=== PATIENT | male | born 1930 | race Caucasian/White ===

== ENCOUNTER 2016-05-20 00:01 | Outpatient (RCR) ==
[2016-05-11 12:37] VITALS: BMI 21.4
[2016-06-08 09:22] VITALS: BP 90/40
== END 2016-06-19 ==
LOC: CAR.REHAB 00:01
PROVIDERS: ATTEND Internal Medicine
DX: I50.9 Heart failure, unspecified (principal); Z95.2 Presence of prosthetic heart valve
CPT/HCPCS: 93798

== ENCOUNTER 2016-05-23 17:00 | Outpatient (CLI) ==
[2016-05-11 12:37] VITALS: BMI 21.4
[2016-05-23 17:38] LABS: BASOPHILS # (AUTO) 0.1 K/uL (0-0.2); BASOPHILS % (AUTO) 0.5 % (0.0-3.0); EOSINOPHILS # (AUTO) 0.1 K/ul (0.0-0.7); EOSINOPHILS % (AUTO) 0.8 % (0.0-7.0); HEMATOCRIT 39.3 % (42.0-52.0); HEMOGLOBIN 12.6 g/dl (14.0-18.0); IMMATURE GRANULOCYTE % (AUTO) 1.6 % (0.0-5.0); LYMPHOCYTES % (AUTO) 9.6 (10.0-50.0); MEAN CORPUSCULAR HEMOGLOBIN 30.9 pg (27.0-31.0); MEAN CORPUSCULAR HGB CONC 32.1 (31.8-35.4); MEAN CORPUSCULAR VOLUME 96.3 fl (80.0-94.0); MONOCYTES # (AUTO) 0.8 K/uL (0.4-2.0); MONOCYTES % (AUTO) 7.3 (0-10); NEUTROPHILS # (AUTO) 8.2 K/ul (2.0-6.9); NEUTROPHILS % (AUTO) 80.2; PLATELET COUNT 191 10^3/uL (140-440); RED BLOOD COUNT 4.08 10^6/ul (4.70-6.10); WHITE BLOOD COUNT 10.27 K/ul (4.2-10.2)
[2016-05-23 18:12] LABS: ALBUMIN 3.3 g/dL (3.4-5.0); ALBUMIN/GLOBULIN RATIO 0.87; ANION GAP 15.5; BILIRUBIN,TOTAL 1.35 mg/dL (0.00-1.20); BUN/CREATININE RATIO 39.34; CALCIUM 9.4 mg/dL (8.2-10.2); CHOL/HDL RATIO 8.7 (4.5-6.4); CREATININE 1.22 mg/dL (0.60-1.10); POTASSIUM 4.5 mmol/L (3.5-5.1); TOTAL PROTEIN 7.1 g/dL (5.8-8.1)
== END 2016-05-23 17:01 | disposition home or self-care (01) ==
LOC: LAB 17:00
PROVIDERS: ATTEND Internal Medicine
DX: I50.9 Heart failure, unspecified (principal); E78.5 Hyperlipidemia, unspecified; I10 Essential (primary) hypertension; I34.0 Nonrheumatic mitral (valve) insufficiency
CPT/HCPCS: 36415; 80053; 80061; 83880; 84443; 85025

== ENCOUNTER 2016-06-04 11:00 | Outpatient (RCR) ==
[2016-05-11 12:37] VITALS: BMI 21.4
--- NOTE | 2016-05-31 09:56 | RS.OPPTEV2 ---
Date of Note: 05/31/16 Visit #: 1 Date of Evaluation: 05/31/16 Payer Source: MEDICARE Date of Onset/Injury/Change in Status: 05/20/16 Surgery Performed?: No Treatment Diagnosis: Cervicalgia History of Condition/Mechanism of Injury:: Patient had a bad virus in April and afterwards he started having severe neck pain and has been in a near constant spasm. He has become very debilitated and had other medical complications that caused him to delay starting PT. He is have difficulty with all aspects of mobility and can not get comfortable enough to sleep well. He is not able to drive and his states that getting in/out of bed and even dressing are too difficult for him due to the constant pain in his neck at such a severe level. 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 Prior Level of Function.....Patient was independent with: ADL's, Self Care, Caregiving, Ambulation/Mobility, Community Integration/Access Functional Limitations: Sleep, Self Care, ADL's, Reaching, Pushing, Pulling, Lifting, Carrying, Sitting, Standing, Bending, Squatting, Ambulation, Community Access/Integration Treatment Side (optional): N/A Medical History Medical History: Hypertension, Arthritis Surgical History: CABG Surgical History Comments:: Valve replacement, Left ulnar nerve relocation years ago, injury to left elbow during childhood. Smoking Status: Former smoker Hx Home Medications: Lipitor, [place] PRN, Norvasc & Coumadin Pain Assessment - Pain Description Pain Location: Neck pain more distal neck Pain Description: Tightness, Acute Pain Description: Debilitating constant neck pain like a constant spasm. Current Pain Intensity: 7/10 Worst Pain Intensity: 10/10 Functional Outcome Measure Neck Disability Index: 35 (70% disability) - G Codes & Severity Modifier G Codes & Modifier: Current: Changing & Maintaining Body Position - CL. Goal: CK Source of G Code score: NDI Observation - Observation Posture: Forward Head, Rounded Shoulders, Decreased Cervical Lordosis Gait - Gait Pattern General Gait Pattern Observation: Antalgic Gait, Uneven Elena (Patient has unsteady gt but it is unknown how much is related to pain and what was previously present.) General Muscle Strength: BUEs were WFLs to AROM. Decreased ROM minimally of left shoulder due to TSR several years ago. - ROM Cervical Flexion: 10 (degrees) Cervical Extension: 10 (degrees) Cervical Right Rotation: 25 (degrees) Cervical Left Rotation: 25 (degrees) Cervical Spine Range of Motion Limitations: Pain - Strength Comments: Not tested due to pain Palpation Palpation Findings: Tenderness, Spasm, Muscle Guarding (Bilateral mid-distal cervcail paraspinals) Sensation - Sensation Sensation Description: Within Normal Limits Balance - Standing Balance Static Standing Balance: Good Dynamic Standing Balance: Fair (Again it is unknown if this balance deficit is pain related or previously present.) - Treatment Modality: Ultrasound Parameters/Method Applied: 1 MHz at 0.4 w/cm2 X 10 mins Treatment Area: Bilateral cervical paraspinals Patient Position: Sitting Interventions - Exercise/Activities/Manual Therapy Exercises/Activities: Pt performed CROM within pain free ROM in all planes. He is very limited and required VCs to avoid increasing pain. Chin tuck X 7 reps with VCs for proper technique. Total minutes of Exercise: 10 Manual Therapy: NA HOME EXERCISE PROGRAM: Patient and his were instructed to perform 5-7 reps each of CROM in all planes every waking hour within pain free ROM. They verbalized understanding but further education will be needed. - Charges Total Direct Minutes: 75 Total Treatment Time: 20 Procedures billed for this date of service:: PT Marquis (Mod), US & ther ex Assessment Assessment: Constant neck pain that has been debilitating in nature. He has poor CROM and neck and upper body weakness as well as significant postural deficits in the C-spine. Patient Education: Education of diagnosis, Body/Joint mechanics, Home Exercise Program, Activity Modification, Education of Plan of Care Rehab Potential: Good Short Term Goals Goal #1: Pain is intermittent in the neck. Goal to be met by: 06/22/16 Goal #2: Patient is able to perform transfers w/o increased neck pain Goal to be met by: 06/22/16 Goal #3: CROM is 50% in all planes. Goal to be met by: 06/22/16 Goal #4: Independent with initial HEP Goal to be met by: 06/22/16 [facility] Goals Goal #1: CROM WFLs to allow him to drive. Goal to be met by: 07/13/16 Goal #2: NDI score 20/50 Goal to be met by: 07/13/16 Progress towards goal: Met Goal #3: Patient independent in HEP. Goal to be met by: 07/01/13 Goal #4: Patient is able to sleep w/o pain awakening him. Goal to be met by: 07/13/16 Plan - Treatment to be Provided Procedures: Therapeutic Exercises, Therapeutic Activity, Neuromuscular Rehab, Manual Therapy, Massage, Patient Education Modalities: Electrical Stimulation, Ultrasound/Phonophoresis, Class IV Laser, Cryotherapy, Hot Packs - Treatment Plan Frequency: 3 X week Duration: 6 weeks ORDER # VISITS AND/OR THROUGH DATE: 07/13/2016 - Treatment Code (1) Cervicalgia Comments: M54.2
--- NOTE | 2016-06-01 16:17 | RS.OPPTDN ---
Subjective Date of Note: 06/01/16 Visit #: 2 Date of Evaluation: 05/31/16 Payer Source: MEDICARE Treatment Diagnosis: Cervicalgia Current Subjective/complaints:: Patient reports first treatment of US helped reduce pain. He and his both report an increase in cervical motion with treatment today. *Precautions: avoiding shoulder extension past neutral. Pain Assessment - Pain Description Pain Location: Neck pain more distal neck Pain Description: Tightness, Acute Pain Description: Debilitating constant neck pain like a constant spasm. Current Pain Intensity: 7/10 - Treatment Modality: Ultrasound Parameters/Method Applied: [id number] at 1.5w/cm2 to the bialteral cervical paraspinals and traps prior to MT. Patient in sitting. Patient Position: Sitting - Heat/Cryotherapy Treatment: Hot Pack ([id number] to the cervical spine ) Interventions - Exercise/Activities/Manual Therapy Exercises/Activities: Pt performed CROM within pain free ROM flex, ext, lateral flexion, and rotation. Isometric cervical retraction. Total minutes of Exercise: 8mins Manual Therapy: [id number] Deep tissue and myofascial release to the bilateral cervical paraspinals and traps. Trigger point release at base of right c-spine. Total minutes of Manual Therapy: 20mins HOME EXERCISE PROGRAM: Patient and his were instructed to perform 5-7 reps each of CROM in all planes every waking hour within pain free ROM. Cervical isometric retraction. - Charges Total Direct Minutes: 42mins Total Treatment Time: 62mins Procedures billed for this date of service:: HP, US, MT, EX Assessment: Patient responding to treatment. Patient pleased to be able to perform limited motion with cervical rotation. Patient Education: Education of diagnosis, Body/Joint mechanics, Home Exercise Program, Activity Modification Patient demonstrates compliance with HEP?: Yes Short Term Goals Goal #1: Pain is intermittent in the neck. Goal to be met by: 06/22/16 Goal #2: Patient is able to perform transfers w/o increased neck pain Goal to be met by: 06/22/16 Goal #3: CROM is 50% in all planes. Goal to be met by: 06/22/16 Progress towards Goal:: Progressing Goal #4: Independent with initial HEP Goal to be met by: 06/22/16 Progress towards Goal:: Progressing Residential Goals Goal #1: CROM WFLs to allow him to drive. Goal to be met by: 07/13/16 Goal #2: NDI score 20/50 Goal to be met by: 07/13/16 Progress towards goal: Met Goal #3: Patient independent in HEP. Goal to be met by: 07/01/13 Goal #4: Patient is able to sleep w/o pain awakening him. Goal to be met by: 07/13/16 Plan PLAN OF CARE EXPIRES ON:: 07/13/16 ORDER # VISITS AND/OR THROUGH DATE: 07/13/2016 PLAN: Continue Plan of Care
--- NOTE | 2016-06-04 12:47 | RS.OPPTDN ---
Subjective Date of Note: 06/04/16 Visit #: 3 Date of Evaluation: 05/31/16 Payer Source: MEDICARE Treatment Diagnosis: Cervicalgia Current Subjective/complaints:: Reports the therapy is helping,no pain at rest, but is present with walking and any head motion. *Precautions: avoiding shoulder extension past neutral. Pain Assessment - Pain Description Pain Location: Neck pain more distal neck Pain Description: Tightness, Acute Current Pain Intensity: 0 at rest Other Comments regarding Pain:: Pain elevates with walking or any head motion. - Treatment Modality: Ultrasound Parameters/Method Applied: 10 mins.,continuous mode ,@ 1.5 w/cm2 to cervical /UT 's. - Heat/Cryotherapy Treatment: Hot Pack (20 mins. prior to US) Interventions - Exercise/Activities/Manual Therapy Exercises/Activities: CROM during manual therapy. Total minutes of Exercise: 0 Manual Therapy: [id number] Deep tissue and myofascial release to the bilateral cervical paraspinals and traps. Trigger point release at base of right c-spine. Total minutes of Manual Therapy: 20 HOME EXERCISE PROGRAM: Patient and his were instructed to perform 5-7 reps each of CROM in all planes every waking hour within pain free ROM. Cervical isometric retraction. - Charges Total Direct Minutes: 30 Total Treatment Time: 50 Procedures billed for this date of service:: hp,US,manual Assessment: Reports relief after PT session today.He has hypertonus present in the cervical muscles,L greater then the R .He is tender to palpate the distal area of C-spine(C6-C7) today>He ahs difficulty with proper technique for doin gchin tucks,forward head and decreased cervical lordosis. Patient Education: Education of diagnosis, Body/Joint mechanics, Home Exercise Program, Home Safety, Activity Modification, Education of Plan of Care Short Term Goals Goal #1: Pain is intermittent in the neck. Goal to be met by: 06/22/16 Progress towards Goal:: Progressing Goal #2: Patient is able to perform transfers w/o increased neck pain Goal to be met by: 06/22/16 Goal #3: CROM is 50% in all planes. Goal to be met by: 06/22/16 Progress towards Goal:: Progressing Goal #4: Independent with initial HEP Goal to be met by: 06/22/16 Progress towards Goal:: Progressing [employer] Goals Goal #1: CROM WFLs to allow him to drive. Goal to be met by: 07/13/16 Goal #2: NDI score 20/50 Goal to be met by: 07/13/16 Progress towards goal: Met Goal #3: Patient independent in HEP. Goal to be met by: 07/01/13 Goal #4: Patient is able to sleep w/o pain awakening him. Goal to be met by: 07/13/16 Plan PLAN OF CARE EXPIRES ON:: 07/13/16 ORDER # VISITS AND/OR THROUGH DATE: 07/13/2016 PLAN: Continue Plan of Care
--- NOTE | 2016-06-06 09:32 | RS.CXNS ---
Date of scheduled appointment: 06/06/16 Type: Cancel Reason for Cancel/NS: called,reports Mr. Briscoe is not feeling well today.
--- NOTE | 2016-06-08 11:51 | RS.CXNS ---
Date of scheduled appointment: 06/08/16 Type: Cancel (Patient's daughter called,he is in ER at hospital.)
--- NOTE | 2016-06-25 16:22 | RS.QUICKDC ---
Discharge from PT Date of Discharge: 06/19/16 Number of Visits: 3 Reason for Discharge: Patient hospitalized,last PT session was on 06/04/16.No further appts. made.G codes are: body pos. D/C CL,body pos. goal CK.
== END 2016-06-19 ==
PROVIDERS: ATTEND Internal Medicine
DX: M62.830 Muscle spasm of back (principal); M54.2 Cervicalgia

== ENCOUNTER 2016-06-08 10:14 | Emergency (ER) | payer OTHER ==
[2016-06-08 10:23] VITALS: BP 98/49; TEMP 99; BMI 20.6
[2016-06-08 11:37] LABS: BASOPHILS % (AUTO) 0.3 % (0.0-3.0); EOSINOPHILS % (AUTO) 0.4 % (0.0-7.0); HEMATOCRIT 32.6 % (42.0-52.0); HEMOGLOBIN 10.7 g/dl (14.0-18.0); IMMATURE GRANULOCYTE % (AUTO) 1.5 % (0.0-5.0); LYMPHOCYTES # (AUTO) 0.6 K/uL (0.60-3.4); MEAN CORPUSCULAR HEMOGLOBIN 30.7 pg (27.0-31.0); MEAN CORPUSCULAR HGB CONC 32.8 (31.8-35.4); MEAN CORPUSCULAR VOLUME 93.7 fl (80.0-94.0); MONOCYTES # (AUTO) 0.5 K/uL (0.4-2.0); MONOCYTES % (AUTO) 4.7 (0-10); NEUTROPHILS # (AUTO) 9.2 K/ul (2.0-6.9); NEUTROPHILS % (AUTO) 87.1; PLATELET COUNT 160 10^3/uL (140-440); RED BLOOD COUNT 3.48 10^6/ul (4.70-6.10); WHITE BLOOD COUNT 10.56 K/ul (4.2-10.2)
[2016-06-08 12:15] LABS: BILIRUBIN,URINE Negative (NEGATIVE); KETONES,URINE Negative (NEGATIVE); LEUKOCYTE ESTERASE ,URINE Negative (NEGATIVE); NITRITE,URINE Negative (NEGATIVE); PROTEIN,URINE Negative (NEGATIVE); URINE, BLOOD Negative (NEGATIVE)
[2016-06-08 12:16] LABS: ADD URINE MICROSCOPIC NO
[2016-06-08 12:27] LABS: ANION GAP 16.1; BILIRUBIN,TOTAL 1.97 mg/dL (0.00-1.20); BUN/CREATININE RATIO 24.03; CALCIUM 8.9 mg/dL (8.2-10.2); CREATININE 1.29 mg/dL (0.60-1.10); POTASSIUM 5.1 mmol/L (3.5-5.1); TROPONIN I 0.014 ng/ml (0.0000-0.4000)
--- NOTE | 2016-06-08 12:29 | CT ---
EXAM: CT of the head without contrast History: Altered mental status. Comparison: Head CT 06/06/2014 Technique: Multiplanar CT images through the head were obtained without the administration of IV co ntrast Findings: Mild mucosal thickening of the bilateral maxillary sinuses and ethmoid air cells. Mastoi d air cells are clear in general. No acute calvarial abnormalities. Intracranially there are atherosclerotic vascular calcifications. The ventricular and cisternal spaces are normal in size, shape and configuration for a patient of th is age. No dominant mass or midline shift. No hydrocephalous. Small area of subarachnoid hemorrha ge within the left frontal parietal region. 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 Impression: Small area of acute subarachnoid hemorrhage within the left frontal parietal region. Critical results communicated to Dr. Real at 12:23 p.m. on 06/08/2016
--- NOTE | 2016-06-08 12:29 | CT ---
EXAM: CT Abdomen without contrast. CT Pelvis without contrast. HISTORY: Abdominal distension, constipation. COMPARISON: None available. TECHNIQUE: Multiple axial images of the abdomen and pelvis were obtained without intravenous contra st. Images were reformatted in the coronal plane. FINDINGS: Please note that evaluation of the abdominal and pelvic structures is limited due to lack of intravenous contrast. The lung bases are grossly clear. Degenerative changes are present in the spine. Possible gallbladder calcification on axial image 23. The liver, pancreas, spleen, and adrenal glan ds demonstrate normal contour. No calcified renal stones or hydronephrosis detected. The bowel is normal in course and caliber without evidence for obstruction or inflammatory process. The appendix is normal. Prostate gland. The margin demonstrates mass effect on the base of the ur inary bladder measuring up to 6.1 x 5.7 x 5.2 cm. Within the right side of the deep pelvis is mixed density best seen lateral to the rectum on axial image 62 which is most likely a small bowel loop w ith fluid and internal high density. No free air identified. Urinary bladder is mildly distended. Atherosclerotic calcifications are present. Aortocaval lymph nodes measure up to 1 cm short axis o n axial image 30 with multiple additional retroperitoneal and right iliac chain lymph nodes present. IMPRESSION: 1. No acute inflammatory process in the abdomen or pelvis. 2. Nonspecific retroperitoneal lymphadenopathy. 3. Cholelithiasis versus gallbladder wall calcification. 4. Prostatic enlargement.
[2016-06-08 12:33] LABS: PARTIAL THROMBOPLASTIN TIME 44.1 SEC (23.9-40.0)
--- NOTE | 2016-06-08 12:33 | ED.PDOC ---
General ED Provider: Dr. SEAN TRONCOSO Chief Complaint: Altered Mental Status Stated Complaint: ALTERED L.O.C. Time Seen by Physician: 10:18 (HISTORY FROM PTAND FAMILY PT IS CONFUSED OFF/ON X 7DAYS) Mode of Arrival: Walk-In Information Source: Patient, Family Exam Limitations: No limitations Primary Care Provider: MILKA SILVA Nursing and Triage Documentation Reviewed and Agree: Yes (NO TRAUMA REPORTED ON WAREFARIN FOR AFIB) Neurological Complaint Exam - Altered Mental Status Complaint/Exam Current Mental Status: Confusion Last Known Well: 7 DAYS Onset: Gradual Duration: 7 DAYS Symptoms Are: Resolved Timing: Intermittent Episodes Lasting: Days Initial Severity: Moderate Current Severity: None Eye Deviation Present: No Character: Reports: Confusion, Agitation (NEVER UNRESPONSIVE ) Aggravating: Reports: None Associated Signs and Symptoms: Denies: Dizziness, Weakness, Headache, Fever, Illness, Nuchal rigidity, Seizure, Nausea, Vomiting, Recently depressed, Trauma Related History: Denies: Seizure Cardiac Risk Factors: Reports: Hypertension, CHF, CAD CVA Risk Factors: Reports: Hypertension, 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[place]) Related Surgical History: Reports: None Carotid Bruit Present: No Glascow Coma Scale (see protocol): 15 Nystagmus Present: No Gag Reflex Present: Yes Meningeal Signs Positive: No Focal Weakness: Present: None Focal Sensory Loss: Present: None Gait: Unsteady Babinski Sign: Negative Right, Negative Left Signs of Injury: Present: Normal findings Thrombolytics Considered: No Differential Diagnoses: Hypoglycemia, Medication reaction Review of Systems - Review Of Systems Constitutional: Reports: Malaise Eyes: Reports: No symptoms Ears, Nose, Mouth, Throat: Reports: No symptoms Respiratory: Reports: No symptoms Cardiac: Reports: No symptoms GI: Reports: No symptoms : Reports: No symptoms Musculoskeletal: Reports: No symptoms Skin: Reports: No symptoms Neurological: Reports: Cognitive dysfunction Endocrine: Reports: No symptoms Hematologic/Lymphatic: Reports: No symptoms All Other Systems: Reviewed and Negative Past Medical History - Past Medical History Previously Healthy: No Endocrine: Reports: Dyslipidemia Cardiovascular: Reports: CAD, Hypertension, CHF Respiratory: Reports: None Hematological: Reports: None Gastrointestinal: Reports: None Genitourinary: Reports: None Neuro/Psych: Reports: None Musculoskeletal: Reports: None Cancer: Reports: None - Surgical History General Surgical History: Reports: None - Family History Family History: Reports: None - Social History Smoking Status: Former smoker Hx Substance Use: No Alcohol Screening: None Physical Exam - Physical Exam Appearance: Well-appearing, No pain distress, Well-nourished Eyes: [place], EOMI, Conjunctiva clear ENT: Ears normal, Nose normal, Oropharynx normal Respiratory: Airway patent, Breath sounds clear, Breath sounds equal, Respirations nonlabored Cardiovascular: RRR, Pulses normal, No rub, No murmur GI/: Soft, Nontender, No masses, Bowel sounds normal, No Organomegaly Musculoskeletal: Normal strength, ROM intact, No edema, No calf tenderness Skin: Warm, Dry, Normal color Neurological: Sensation intact, Motor intact, Reflexes intact, Cranial nerves intact, Alert, Oriented Psychiatric: Affect appropriate, Mood appropriate Physician Notification - Case Discussed Physician Notified: KARLENE JAY Time of Notification: 13:10 (TRANSFER TO ICU) Critical Care Note - Critical Care Note Total Time (mins): 0 Course - Course Hematology/Chemistry: 06/08/16 11:36 06/08/16 11:36 Orders, Labs, Meds: Lab Review 06/08/16 06/08/16 11:36 12:09 WBC 10.56 H RBC 3.48 L Hgb 10.7 L Hct 32.6 L MCV 93.7 MCH 30.7 MCHC 32.8 RDW Coeff of Gene 15.9 H Plt Count 160 Immature Gran % (Auto) 1.5 Neut % (Auto) 87.1 Lymph % (Auto) 6.0 L Yell % (Auto) 4.7 Eos % (Auto) 0.4 Baso % (Auto) 0.3 Immature Gran # (Auto) 0.2 Neut # 9.2 H Lymph # 0.6 Yell # 0.5 Eos # 0.0 Baso # 0.0 PT 87.0 H INR 8.45 H* APTT 44.1 H Sodium 133 L Potassium 5.1 Chloride 99 Carbon Dioxide 23 Anion Gap 16.1 BUN 31 H Creatinine 1.29 H Estimated GFR (MDRD) 53.00 BUN/Creatinine Ratio 24.03 Glucose 104 Lactic Acid 12.2 Calcium 8.9 Total Bilirubin 1.97 H AST 41 H ALT 29 Alkaline Phosphatase 117 Total Creatine Kinase 53 Troponin I 0.0140 Total Protein 6.0 Albumin 3.0 L Globulin 3.0 Albumin/Globulin Ratio 1.00 TSH 2.773 Free T4 1.04 Urine Color Yellow Urine Clarity Clear Urine pH 5.0 Ur Specific [place] 1.015 Urine Protein Negative Urine Glucose (UA) Negative Urine Ketones Negative Urine Blood Negative Urine Nitrite Negative Urine Bilirubin Negative Urine Urobilinogen 2.0 Ur Leukocyte Esterase Negative Orders Category Date Time Status EKG-(ED ONLY) Stat CARDIO 06/08/16 11:05 Completed BLOOD CULTURE Stat LAB 06/08/16 11:36 Received CBC W/ AUTO DIFF Stat LAB 06/08/16 11:36 Completed COMPREHENSIVE METABOLIC PANEL Stat LAB 06/08/16 11:36 Completed CREATINE KINASE Stat LAB 06/08/16 11:36 Completed FREE T4 (FREE THYROXINE) Stat LAB 06/08/16 11:36 Completed LACTIC ACID Stat LAB 06/08/16 11:36 Completed PARTIAL THROMBOPLASTIN TIME Stat LAB 06/08/16 11:36 Completed PT WITH INR Stat LAB 06/08/16 11:36 Completed THYROID STIMULATING HORMONE Stat LAB 06/08/16 11:36 Completed TROPONIN I Stat LAB 06/08/16 11:36 Completed URINALYSIS C & S IF INDICATED Stat LAB 06/08/16 12:09 Completed Phytonadione [Mephyton] MEDS 06/08/16 12:38 Discontinued 5 mg PO ONCE STA CT ABDOMEN/PELVIS WO CONTRAST Stat RADS 06/08/16 11:[address] CHEST W/O CONTRAST Stat RADS 06/08/16 11:[address] HEAD W/O CONTRAST Stat RADS 06/08/16 11:37 Completed Medications Discontinued Medications Generic Name Dose Route Start Last Admin Trade Name Freq PRN Reason Stop Dose Admin Phytonadione 5 mg 06/08/16 12:38 06/08/16 12:46 Mephyton PO 06/08/16 12:39 5 mg ONCE STA Administration Vital Signs: Temp Pulse Resp BP Pulse Ox 06/08/16 10:15 99 F 84 20 98/49 L 99 Departure - Departure Time of Disposition: 13:10 Disposition: TSF SHORT-TRM HOSP Discharge Problem: Altered mental status, Brain bleed Instructions: Altered Mental Status (ED) Condition: Good Pt referred to PMD for follow-up: Yes Additional Instructions: Please call your Family Physician as soon as possible to schedule a follow-up appointment. Allergies/Adverse Reactions: Allergies No Known Allergies Allergy (Verified 06/08/16 10:25) Home Medications: Ambulatory Orders Amlodipine Besylate [Norvasc] 1 tab PO DAILY 01/28/13 Aspirin [Aspirin EC] 81 mg PO DAILY 01/28/13 Atorvastatin Calcium [Lipitor] 20 mg PO DAILY 01/28/13 Brimonidine Tartrate 1 drop EACHEYE Q12HR 01/28/13 Dorzolamide HCl 1 drop EACHEYE BID 01/28/13 Travoprost (Benzalkonium) [Travoprost 0.004% Eye Drop] 1 drop EACHEYE DAILY 04/01 Furosemide [Lasix Tab] 20 mg PO QDAC #30 tablet 02/18/15 Losartan Potassium [Cozaar] 50 mg PO BID #60 tablet 02/18/15 Potassium Chloride [K-Dur] 10 meq PO DAILY #30 tab 02/18/15 Warfarin Sodium [Coumadin] 2 mg PO QPM 05/11/16 Calcium Carbonate/Vitamin D3 [Calcium 500 mg Chewable Tablet] 1 each PO BID Metoprolol Succinate 12.5 mg PO BID 06/08/16 Multivitamin 1 cap PO DAILY 06/08/16 Tamsulosin HCl [Flomax] 0.4 mg PO DAILY 06/08/16
[2016-06-08] MEDS ORDERED: MEPHYTON PO STA (12:38)
--- NOTE | 2016-06-08 12:38 | CT ---
EXAM: CT THORAX HISTORY: Cough. TECHNIQUE: CT thorax without intravenous contrast. 5-mm axial sections. Coronal and sagittal re-fo rmations. COMPARISON: None FINDINGS: Heart size upper limit normal. 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 Maximum ascending aortic caliber is 4.2 cm. There is scattered mild to moderate atheromatous disease. A few scattere d small nonspecific mediastinal lymph nodes are seen. There are a few micro nodules in the left perihilar region measuring about 0.3 cm or less. These ar e indeterminate. There is no evidence of acute infiltrate or consolidated pneumonia. No vascular c ongestion or pleural fluid. Bones reveal no acute abnormality. Sternotomy wires are present. There are subareolar opacities co nsistent with mild symmetric gynecomastia. Incidental note of mild gallbladder distension, nonspeci fic. IMPRESSION: 1. No pneumonia identified. 2. 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 3. Mild to moderate atherosclerotic disease. 4. Nonspecific small mediastinal lymph nodes. 5. Several micro nodules in the left perihilar region. Consider follow-up CT in 6 months.
== END 2016-06-08 14:55 | disposition short-term general hospital (02) ==
LOC: ED 10:14
DX: R41.82 Altered mental status, unspecified (principal); I61.9 Nontraumatic intracerebral hemorrhage, unspecified; I10 Essential (primary) hypertension; I48.91 Unspecified atrial fibrillation; E78.5 Hyperlipidemia, unspecified; I50.9 Heart failure, unspecified; I25.10 Atherosclerotic heart disease of native coronary artery without angina pectoris; Z79.01 Long term (current) use of anticoagulants; Z79.899 Other long term (current) drug therapy
CPT/HCPCS: 36415; 80053; 81001; 82550; 83605; 84439; 84443; 84484; 85025; 85610; 85730; 87040; 87070; 87186; 93005; 93010; 99285

== ENCOUNTER 2016-06-09 22:00 | Emergency (ER) | payer OTHER ==
[2016-06-09 22:13] VITALS: TEMP 100.6; BMI 20.7
[2016-06-09] MEDS ORDERED: VANCOMYCIN 1 GM in SODIUM CHLORIDE 250 ML IV STA (23:01)
[2016-06-09] MEDS ORDERED: SODIUM CHLORIDE 1,000 ML IV STA (23:01)
[2016-06-09 23:18] LABS: BASOPHILS % (AUTO) 0.4 % (0.0-3.0); EOSINOPHILS # (AUTO) 0.1 K/ul (0.0-0.7); EOSINOPHILS % (AUTO) 0.5 % (0.0-7.0); HEMATOCRIT 31.7 % (42.0-52.0); HEMOGLOBIN 10.5 g/dl (14.0-18.0); IMMATURE GRANULOCYTE % (AUTO) 1.1 % (0.0-5.0); LYMPHOCYTES # (AUTO) 0.9 K/uL (0.60-3.4); LYMPHOCYTES % (AUTO) 7.9 (10.0-50.0); MEAN CORPUSCULAR HEMOGLOBIN 30.9 pg (27.0-31.0); MEAN CORPUSCULAR HGB CONC 33.1 (31.8-35.4); MEAN CORPUSCULAR VOLUME 93.2 fl (80.0-94.0); MONOCYTES # (AUTO) 0.7 K/uL (0.4-2.0); MONOCYTES % (AUTO) 6.8 (0-10); NEUTROPHILS % (AUTO) 83.3; PLATELET COUNT 156 10^3/uL (140-440); WHITE BLOOD COUNT 10.84 K/ul (4.2-10.2)
[2016-06-09 23:31] LABS: PROTHROMBIN TIME 11.9 SEC (9.3-11.0)
--- NOTE | 2016-06-09 23:37 | ED.PDOC ---
General ED Provider: Dr. DARREN LAL-ER Chief Complaint: Non-specific Complaint Stated Complaint: [facility] post[facility] dr told them to go to the nearest hospital ..still with fever Time Seen by Physician: 22:05 Mode of Arrival: Wheelchair Information Source: Patient, Family Exam Limitations: No limitations Primary Care Provider: MILKA SILVA Nursing and Triage Documentation Reviewed and Agree: Yes Miscellaneous Complaint Exam - Febrile Illness/Adult Complaint/Exam Onset/Duration: unknown Symptoms Are: Still present Timing: Intermittent Highest Temperature Recorded: 101 Initial Severity: Mild Current Severity: Mild Aggravating: Reports: None Alleviating: Reports: None Associated Signs and Symptoms: Reports: Chills. Denies: Headache, Fluid intake , Short of air, Cough, Sore throat, Nausea, Vomiting, Diaphoresis, Dysuria, Arthralgia, Stiff neck, Myalgia, Rash, Altered mental status Related History: Reports: Similar episode. Denies: Recent tick bite, Recent tick exposure Serious Bacterial Infection Risk Factors: Reports: None Current Antibiotic Use: No Related Surgical History: Recent Invasive procedure (valve replacement fall 2015 [place]) Specific Findings: Absent: Meningeal signs, Diaphoresis, Joint swelling, Erythema, Cellulitis, Lymphadenopathy, Petechiae, CVA tenderness Differential Diagnoses: Bacteremia Quality Indicator For Non-Traumatic Chest Pain/Syncope: EKG Performed Review of Systems - Review Of Systems Constitutional: Reports: Chills, Fever Eyes: Reports: No symptoms Ears, Nose, Mouth, Throat: Reports: No symptoms Respiratory: Reports: No symptoms Cardiac: Reports: No symptoms GI: Reports: No symptoms : Reports: No symptoms Musculoskeletal: Reports: No symptoms Skin: Reports: No symptoms Neurological: Reports: No symptoms Endocrine: Reports: No symptoms Hematologic/Lymphatic: Reports: No symptoms All Other Systems: Reviewed and Negative Past Medical History - Past Medical History Previously Healthy: No Endocrine: Reports: Dyslipidemia Cardiovascular: Reports: CAD, Hypertension, CHF Respiratory: Reports: None Hematological: Reports: None Gastrointestinal: Reports: None Genitourinary: Reports: None Neuro/Psych: Reports: None Musculoskeletal: Reports: None Cancer: Reports: None - Surgical History General Surgical History: Reports: None, Other (valve replacment) - Family History Family History: Reports: None - Social History Smoking Status: Former smoker Hx Substance Use: No Alcohol Screening: None Lives: With family - Immunizations Tetanus Shot up to Date: Yes Physical Exam - Physical Exam Appearance: Well-appearing, No pain distress, Well-nourished Eyes: MADE[place], EOMI, Conjunctiva clear ENT: Ears normal, Nose normal, Oropharynx normal Neck: Supple Respiratory: Airway patent Cardiovascular: RRR, Pulses normal, No rub, No murmur GI/: Soft Musculoskeletal: Normal strength, ROM intact, No edema, No calf tenderness Skin: Warm, Dry, Normal color Neurological: Sensation intact, Motor intact, Reflexes intact, Cranial nerves intact, Alert, Oriented Psychiatric: Affect appropriate, Mood appropriate Physician Notification - Case Discussed Physician Notified: dr delcid--recommended sending to [place](site of surgery) Time of Notification: 22:35 Endorsed To/Discussed With: dr padmini lundy [facility]--accepted the patient Critical Care Note - Critical Care Note Total Time (mins): 0 Course - Course Hematology/Chemistry: 06/09/16 23:16 Orders, Labs, Meds: Lab Review 06/09/16 23:16 WBC 10.84 H RBC 3.40 L Hgb 10.5 L Hct 31.7 L MCV 93.2 MCH 30.9 MCHC 33.1 RDW Coeff of Gene 16.0 H Plt Count 156 Immature Gran % (Auto) 1.1 Neut % (Auto) 83.3 Lymph % (Auto) 7.9 L [place] % (Auto) 6.8 Eos % (Auto) 0.5 Baso % (Auto) 0.4 Immature Gran # (Auto) 0.1 Neut # 9.0 H Lymph # 0.9 [place] # 0.7 Eos # 0.1 Baso # 0.0 ESR Pending Orders Category Date Time Status EKG-(ED ONLY) Stat CARDIO 06/09/16 23:00 Ordered IV [ED IV/MEDIPORT/POWERPORT] .ONCE EMERGENCY 06/09/16 23:01 Active BLOOD CULTURE Stat LAB 06/09/16 23:16 Ordered CBC W/ AUTO DIFF Stat LAB 06/09/16 23:16 Results COMPREHENSIVE METABOLIC PANEL Stat LAB 06/09/16 23:16 Received ESR Stat LAB 06/09/16 23:16 Results PT WITH INR Stat LAB 06/09/16 23:16 Received URINALYSIS C & S IF INDICATED Stat LAB 06/09/16 23:00 Uncollected 0.9 % Sodium Chloride [Saline Flush] MEDS 06/09/16 23:01 Ordered 1 syr IVF PRN PRN Sodium Chloride 0.9% [Sodium Chloride] 1,000 ml MEDS 06/09/16 23:01 Active IV 100 mls/hr Vancomycin HCl [Vancomycin] 1 gm MEDS 06/09/16 23:01 Active 0.9 % Sodium Chloride [Sodium Chloride] 250 ml IV ONCE Medications Generic Name Dose Route Start Last Admin Trade Name Freq PRN Reason Stop Dose Admin Sodium Chloride 1,000 mls @ 100 mls/hr 06/09/16 23:01 Sodium Chloride IV 06/10/16 09:00 .Q10H STA Vancomycin HCl 1 gm/ Sodium 250 mls @ 250 mls/hr 06/09/16 23:01 Chloride IV 06/10/16 00:00 ONCE STA Sodium Chloride 1 syr 06/09/16 23:01 Saline Flush IVF PRN PRN To flush IV Vital Signs: Temp Pulse Resp BP Pulse Ox 06/09/16 22:01 100.6 F H 88 18 121/65 96 Departure - Departure Time of Disposition: 23:39 Disposition: TSF SHORT-TRM HOSP Discharge Problem: Gram-positive bacteremia Instructions: Bacteremia (ED) Condition: Stable Pt referred to PMD for follow-up: Yes Allergies/Adverse Reactions: Allergies No Known Allergies Allergy (Verified 06/09/16 22:11) Home Medications: Ambulatory Orders Aspirin [Aspirin EC] 81 mg PO DAILY 01/28/13 Atorvastatin Calcium [Lipitor] 20 mg PO DAILY 01/28/13 Brimonidine Tartrate 1 drop EACHEYE Q12HR 01/28/13 Dorzolamide HCl 1 drop EACHEYE BID 01/28/13 Travoprost (Benzalkonium) [Travoprost 0.004% Eye Drop] 1 drop EACHEYE DAILY 04/01 Furosemide [Lasix Tab] 20 mg PO QDAC #30 tablet 02/18/15 Potassium Chloride [K-Dur] 10 meq PO DAILY #30 tab 02/18/15 Calcium Carbonate/Vitamin D3 [Calcium 500 mg Chewable Tablet] 1 each PO BID Metoprolol Succinate 12.5 mg PO BID 06/08/16 Multivitamin 1 cap PO DAILY 06/08/16 Tamsulosin HCl [Flomax] 0.4 mg PO DAILY 06/08/16 Transfer Form Completed: Yes Disposition Discussed With: Patient, Family
[2016-06-09 23:38] LABS: ALBUMIN 3.1 g/dL (3.4-5.0); ALBUMIN/GLOBULIN RATIO 0.97; ANION GAP 13.7; BILIRUBIN,TOTAL 1.93 mg/dL (0.00-1.20); BUN/CREATININE RATIO 31.57; CREATININE 1.14 mg/dL (0.60-1.10); POTASSIUM 4.7 mmol/L (3.5-5.1); TOTAL PROTEIN 6.3 g/dL (5.8-8.1)
[2016-06-09 23:52] LABS: ERYTHROCYTE SEDIMENTATION RATE 42 mm/hr (0-15); ESR INTERNAL QC INTERNAL QC VALID
[2016-06-10 02:24] LABS: BILIRUBIN,URINE Negative (NEGATIVE); KETONES,URINE Negative (NEGATIVE); LEUKOCYTE ESTERASE ,URINE Negative (NEGATIVE); NITRITE,URINE Negative (NEGATIVE); PROTEIN,URINE Negative (NEGATIVE); URINE, BLOOD Negative (NEGATIVE)
[2016-06-10 02:25] LABS: ADD URINE MICROSCOPIC NO
[2016-06-10 07:01] VITALS: BP 103/60
== END 2016-06-10 07:53 | disposition short-term general hospital (02) ==
LOC: ED 22:00
DX: R78.81 Bacteremia (principal); R50.9 Fever, unspecified; E78.5 Hyperlipidemia, unspecified; I10 Essential (primary) hypertension; I25.10 Atherosclerotic heart disease of native coronary artery without angina pectoris; I50.9 Heart failure, unspecified; Z79.899 Other long term (current) drug therapy; Z95.2 Presence of prosthetic heart valve; Z98.890 Other specified postprocedural states
CPT/HCPCS: 36415; 80053; 81001; 85025; 85610; 85651; 87040; 87070; 87186; 93005; 93010; 96361; 96365; 99285

== ENCOUNTER 2016-06-10 07:50 | Outpatient (CLI) ==
[2016-06-09 22:13] VITALS: BMI 20.7
== END 2016-06-10 07:51 | disposition home or self-care (01) ==
LOC: AMBL 07:50
PROVIDERS: ATTEND Internal Medicine
DX: R78.81 Bacteremia (principal); Z95.2 Presence of prosthetic heart valve; Z98.890 Other specified postprocedural states

== ENCOUNTER 2016-06-20 06:45 | Outpatient (RCR) | END 2016-07-04 16:08 | disposition home or self-care (01) | LOC: CAR.REHAB 06:45 | PROVIDERS: ATTEND Internal Medicine | DX: Z95.2 Presence of prosthetic heart valve (principal); I50.9 Heart failure, unspecified ==

== ENCOUNTER 2016-08-09 11:39 | Outpatient (CLI) | END 2016-08-09 11:40 | disposition home or self-care (01) | LOC: LAB 11:39 | PROVIDERS: ATTEND Internal Medicine Infectious Disease | DX: Z79.2 Long term (current) use of antibiotics (principal) | CPT/HCPCS: 36415; 87040 ==

== ENCOUNTER → 2016-08-17 | Outpatient (RCR) ==
--- NOTE | 2016-07-30 10:56 | RS.OTEVAL ---
Subjective Date of Note: 07/30/16 Visit #: 1 Date of Evaluation: 07/30/16 Payer Source: MEDICARE Date of Onset/Injury/Change in Status: 06/08/16 Surgery Performed?: No Treatment Diagnosis: Generalized Weakness Treatment Side (optional): N/A *Precautions: At risk for falls Prior Level of Function.....Patient was independent with: ADL's, Self Care, Work /Vocation, Caregiving, Ambulation/Mobility, Community Integration/Access History of Condition/Mechanism of Injury: Pt has increased weakness and had been sick for 3 weeks when his took him to the ER. Pt had a CAT Scan and was flown to [facility] with a brain bleed. Pt then was found to have an infection in his blood. Level of Function: Pt requires assist for shower transfers, is very week. Pt uses a RW in the home and straight cane with CGA in the community. Pt has difficulty lifting and carrying items, difficulty dressing himself but he does this with extra time. Pt has difficulty staying on task and fine motor tasks of buttoning buttons. Functional Limitations: Self Care, ADL's, Reaching, Pushing, Pulling, Lifting, Carrying, Standing, Bending, Squatting, Ambulation, Community Access/Integration Current Complaints/Gains: Pt is weak and requires extra time to complete his ADLS. Pt has difficulty lifting and carrying items, decreased ambulation, decreased eating and drinking, and difficulty with fine motor tasks. Medical History Medical History: Hypertension, Arthritis Medical History Comments:: LUE total shoulder replacement, Heart Valve replacement, brain bleed, CABG Surgical History: CABG Surgical History Comments:: Valve replacement, Left ulnar nerve relocation years ago, injury to left elbow during childhood. Smoking Status: Former smoker Diagnostic Testing/Imaging:: CAT scan Hx Home Medications: Lipitor, [place] PRN, Norvasc & Coumadin Patient's Goals: To get stronger and able to take care of himself. Pain Assessment - Pain Description Pain Location: 0 Pain Description: 0 Current Pain Intensity: 0 Worst Pain Intensity: 0 Functional Outcome Measures UE Functional Index: 20 - G Codes & Severity Modifier G Codes: Current CL 60-79% impaired for CArrying, moving, and handling. Goal CI Source of G Code score: Carrying, Moving and Handling Observation - Observation Inspection: Pt has a Right Clavicle protruding, Neck is shifted to the Right. Pt has limitations of the Cervical flexion, extension, and cervical rotation to the left and right. Pt is very weak. Posture: Forward Head Handedness: Right Shoulder ROM: Right WFL's - Left Shoulder ROM Left Shoulder Flexion: 115 Left Shoulder Extension: 50 Left Shoulder Abduction: 50 Left Shoulder Horizontal Adduction: 40 Left Shoulder Internal Rotation: 50 Left Shoulder External Rotation: 40 Left Shoulder ROM Limitations: Soft Tissue Tightness, Muscle Weakness - Left Shoulder Strength Left Shoulder Flexion: 3- Fair- Left Shoulder Extension: 3- Fair- Left Shoulder Abduction: 3- Fair- Left Shoulder Adduction: 3- Fair- Left Shoulder External Rotation: 3- Fair- Left Shoulder Internal Rotation: 3- Fair- - Right Shoulder Strength Right Shoulder Flexion: 4- Good- Right Shoulder Extension: 4- Good- Right Shoulder Abduction: 4- Good- Right Shoulder Adduction: 4- Good- Right Shoulder External Rotation: 4- Good- Right Shoulder Internal Rotation: 4- Good- Elbow ROM: Right WFL's - Left Elbow ROM Comments: Pt hurt his Left elbow as a child and has limited supination/ pronation at elbow. Pt has a weak UE. - Left Elbow Strength Left Elbow Extension: 3- Fair- Left Elbow Flexion: 3- Fair- Left Forearm Pronation: 3- Fair- Left Forearm Supination: 3- Fair- - Right Elbow Strength Right Elbow Extension: 3- Fair- Right Elbow Flexion: 3- Fair- Right Forearm Pronation: 3- Fair- Right Forearm Supination: 3- Fair- - Left Wrist/Hand ROM Left Wrist ROM Testing Limitations: Muscle Weakness - Right Wrist/Hand ROM Right Wrist Extension: 55 Right Wrist Flexion: 60 Right Forearm Pronation: 80 Right Forearm Supination: 80 Right Wrist ROM Testing Limitations: Muscle Weakness - Left Wrist Strength Left Wrist Extension: 3- Fair- Left Wrist Flexion: 3- Fair- Left Wrist Radial Deviation: 3- Fair- Left Wrist Ulnar Deviation: 3- Fair- Left Forearm Pronation: 3- Fair- - Right Wrist Strength Right Wrist Extension: 4- Good- Right Wrist Flexion: 4- Good- Right Wrist Radial Deviation: 4- Good- Right Wrist Ulnar Deviation: 4- Good- Right Forearm Pronation: 4- Good- Right Forearm Supination: 4- Good- - Branding Machine Tender Strength Left Branding Machine Tender Strength: 21 Right Branding Machine Tender Strength: 19 Branding Machine Tender Strength Left Hand Branding Machine Tender Strength: 19 Right Hand Branding Machine Tender Strength: 21 Dynamometer Testing Position: 2nd Position Interventions - Exercise/Activities Exercise/Activities/Manual Therapy: Upper body bike for 3:30. Assessing patient strength HOME EXERCISE PROGRAM: drink water, eat a big mac a day.Go get the mail - Charges Total Direct Minutes: 60 Total Treatment Time: 30 Procedures billed for this date of service:: Marquis Moderate, Exercise Assessment Assessment: Pt is very weak and would benefit from skilled OT To increase Cervical AROM, BUE strength, AROM of BUE, and increase activity tolerance. Patient Education: Education of diagnosis, Home Exercise Program, Home Safety, Education of Plan of Care Rehab Potential: Good Problems/Comments: Weakness, decreased activity tolerance, impaired functional mobility Short Term Goals Goal #1: Pt to be independent with Home exercise program Goal to be met by: 08/13/16 Goal #2: Pt to increase BUE strength to 4+/5 Goal to be met by: 08/13/16 Goal #3: Pt to be able to tolerate 15 minutes of activity before requiring a rest. Goal to be met by: 08/13/16 Goal #4: Pt to increase LUE AROM shoulder flexion to 135 Goal to be met by: 08/13/16 Nursing Home Goals Goal #1: Pt to increase cervical rotation to the left by 50% Goal to be met by: 09/17/16 Goal #2: Pt to increase BUE strength to 5/5 Goal to be met by: 09/17/16 Goal #3: Pt to increase activity tolerance to 20 minutes with rests PRN. Goal to be met by: 09/17/16 Goal #4: Pt to increase LUE AROM to be WFL. Goal to be met by: 09/17/16 Plan - Treatment to be provided Procedures: Therapeutic Exercises, Therapeutic Activity, Neuromuscular Rehab, Manual Therapy Modalities: Electrical Stimulation, Ultrasound/Phonophoresis, Class IV Laser, Cryotherapy, Hot Packs - Treatment Plan Frequency: 2 X week Duration: 6 weeks ORDER # VISITS AND/OR THROUGH DATE: September 17, 2016 - Treatment Code (1) Muscle weakness (generalized) Comments: M62.81
--- NOTE | 2016-07-31 14:21 | RS.OPPTEV2 ---
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 Patient had a bad virus in April and afterwards he started having severe neck pain. He was found to have had a small brain bleed in May of this year. He then had an infection in his blood and had to received antibiotics for 6 weeks. Patient has lost at least 10 lbs over this time and has become very weak. Prior Level of Function.....Patient was independent with: ADL's, Self Care, Caregiving, Ambulation/Mobility, Community Integration/Access Level of Function: Prior to these medical issues, and Mrs. Briscoe walked around the neighborhood for exercise several times a week. Functional Limitations: Sleep, Self Care, ADL's, Reaching, Pushing, Pulling, Lifting, Carrying, Sitting, Standing, Bending, Squatting, Ambulation, Community Access/Integration Current Subjective/complaints:: Patient's states Mr. Briscoe has become very weak. He has not had any appetite. He uses a walker to walk around inside the home for exercise. Outside the home, he mainly uses a straight cane. He received Home Health Physical Therapy and was given a HEP for his legs. He has no stairs at home. Reports one small step to get into garage. Patient denies any pain. His states he has difficulty getting out of a straight chair and would not be able to get out of bed if it wasn't for having a bed rail. Patient states he has not had any recent falls. His states that she has to help him with all selfcare and ADL's due to his weakness and being unsteady on his feet. Treatment Side (optional): N/A *Precautions: At risk for falls Medical History Medical History: Hypertension, Arthritis Medical History Comments:: LUE total shoulder replacement, Heart Valve replacement, brain bleed, CABG Surgical History: CABG Surgical History Comments:: Valve replacement, Left ulnar nerve relocation years ago, injury to left elbow during childhood. Smoking Status: Former smoker Hx Home Medications: Lipitor, [place] PRN, Norvasc & Coumadin Patient's Goals: Mr. Briscoe's goal is to return to his previous level of function. Pain Assessment - Pain Description Pain Location: States he has no pain. Functional Outcome Measure Tinetti: 9 (02/14=68% impairment) - G Codes & Severity Modifier G Codes & Modifier: Mobility current CL. Mobility goal CJ Source of G Code score: Tinetti Assessment Observation - Observation Posture: Forward Head, Increased Thoracic Kyphosis, Scoliosis Handedness: Right Gait - Gait Pattern Gait Comments: Patient ambulates with straight cane in the right hand with CGA of one. He demonstrates short stride and narrow base support. He does not consistently clear his left foot during swing phase. Demonstrates decreased stance phase on the left LE, with much shorter stride on the right LE. Sit to stand from low treatment table requires minimal assistance of one. General Range of Motion: Bilateral LE AROM is WFL's. Muscle Strength: Left LE: hip strength generally 3+ to 4-/5. quads 4-/5, HS 4/5 , ankle 4-5. Right LE: hip generally 4/5, quads 4+/5, HS 4/5, ankle 4+/5. Trunk strength 3+/5. Sensation - Sensation Right Lower Extremity: Intact/Normal Left Lower Extremity: Intact/Normal Balance - Sitting Balance Static Sitting Balance: Fair (+) Dynamic Sitting Balance: Fair - Standing Balance Static Standing Balance: Fair Dynamic Standing Balance: Fair - Comments Balance Assessment Comments: Static Standing with eyes closed: no sway Additional Comments: Additional Comments: SLR bilaterally to 35 degrees in supine. DF to neutral bilaterally. Interventions - Exercise/Activities/Manual Therapy Exercises/Activities: NA Manual Therapy: NA HOME EXERCISE PROGRAM: NA - Charges Total Direct Minutes: 55 mins Total Treatment Time: 55 mins Procedures billed for this date of service:: EVAL medium Assessment Assessment: Mr. Briscoe presents to therapy with a diagnosis of general weakness. He displays weakness througout his trunk and LE's. More weakness on the left LE. Demonstrates very limited flexibility in the HS bilaterally. Static and Dynamic balance are impaired. He presents to be at a high risk for falls based on Tinetti Assessment. From the reports from the patient and his spouse, his level of function has significantly declined over the last few months. He demonstrates potential to gain strength and increased functional ability and independence with Outpatient Physical Therapy. Patient Education: Education of diagnosis, Body/Joint mechanics, Home Exercise Program, Home Safety, Activity Modification, Education of Plan of Care Rehab Potential: Good Short Term Goals Goal #1: Left LE strength 4/5 throughout. Goal to be met by: 08/21/16 Goal #2: Right hip strength 4+/5. Goal to be met by: 08/21/16 Goal #3: Bilateral SLR to 45 degrees. Goal to be met by: 08/21/16 Goal #4: Pt to transfer sit to stand consistently using good safety with supervision Goal to be met by: 08/14/16 [facility] Goals Goal #1: Pt knows HEP and to continue ex's to maintain level of function at D/C. Goal to be met by: 09/19/16 Goal #2: Pt to amb. independently w/ SC community distances and min. gt deviations. Goal to be met by: 09/19/16 Goal #3: Pt able to perform all selfcare and ADL's with minimal difficulty. Goal to be met by: 09/19/16 Goal #4: Score on Tinetti Assessment improved to 19/28. Goal to be met by: 09/19/16 Plan - Treatment to be Provided Procedures: Therapeutic Exercises, Therapeutic Activity, Gait Training, Neuromuscular Rehab, Patient Education Modalities: No Modalities - Treatment Plan Frequency: 3 X week Duration: 6 weeks ORDER # VISITS AND/OR THROUGH DATE: 09/19/16 - Treatment Code (1) Generalized muscle weakness Comments: M62.81 (2) Functional gait abnormality Comments: R26.89
--- NOTE | 2016-08-01 13:14 | RS.OPPTDN ---
Subjective Date of Note: 08/01/16 Visit #: 2 Date of Evaluation: 07/30/16 Payer Source: MEDICARE Treatment Diagnosis: general weakness, decline in function, gait abnormality Current Subjective/complaints:: Patient with no complaints. His states they are working on a few exercises at home. She comments that Mr. Briscoe is anxious to get back to where he can do more for himself. Pain Assessment - Pain Description Pain Location: States he has no pain. Balance System Training - Level 1 Postural Stability/Symmetry #1 Training Mode: Postural Stability Training Vision: Eyes Open Task: None Stance: Normal #2 Training Mode: Postural Stability Training Vision: Eyes Closed Task: None Stance: Normal - Level 2 Dynamic Weight Shifting #1 Training Mode: Limits of Stability Skill Level (1-3): 1 Platform Stability Level (1-12): static Time: 95 seconds, score 35% Reps: 1 - Balance Training Comments Patient's results on Postural stability training did not change significantly when he performed the training with his eyes closed. Interventions - Exercise/Activities/Manual Therapy Exercises/Activities: Performed trunk strengthening exercises in sitting: anterior/posterior leaning to reach for ball, lateral trunk leaning to reach for /give ball, bilateral shoulder flexion to shoulder height. Also perform alternating hip flexion and LAQ's in sitting on treatment table. In supine, patient received stretching to bilateral HS and heelcords. Performed SAQ's and single hip flexion with 2# weight, isometric lower trunk rotation, bridging, and resisted HS curls and DF with red theraband. Patient then was assisted to VeriWave Balance System to work on postural stability. Total minutes of Exercise: 42 mins Manual Therapy: NA HOME EXERCISE PROGRAM: NA - Objective Findings Observations,measurements,etc.: Pt ambulates with SC in right hand. Continues to take a shorter stride with the right LE. No verbal cues were given today on correcting gait devations, to avoid giving too much information. - Charges Total Direct Minutes: 42 mins Total Treatment Time: 42 mins Procedures billed for this date of service:: Ex2, neuro Assessment: Mr. Briscoe performed exercises today with good tolerance in sitting and standing. He demonstrates the need for continued strengthening for his trunk and LE's to improve his independence with daily activities and ambulation. Patient Education: Education of diagnosis, Body/Joint mechanics, Home Safety, Activity Modification Short Term Goals Goal #1: Left LE strength 4/5 throughout. Goal to be met by: 08/21/16 Goal #2: Right hip strength 4+/5. Goal to be met by: 08/21/16 Goal #3: Bilateral SLR to 45 degrees. Goal to be met by: 08/21/16 Goal #4: Pt to transfer sit to stand consistently using good safety with supervision Goal to be met by: 08/14/16 [facility] Goals Goal #1: Pt knows HEP and to continue ex's to maintain level of function at D/C. Goal to be met by: 09/19/16 Goal #2: Pt to amb. independently w/ SC community distances and min. gt deviations. Goal to be met by: 09/19/16 Goal #3: Pt able to perform all selfcare and ADL's with minimal difficulty. Goal to be met by: 09/19/16 Goal #4: Score on Tinetti Assessment improved to 19/28. Goal to be met by: 09/19/16 Plan PLAN OF CARE EXPIRES ON:: 09/19/16 ORDER # VISITS AND/OR THROUGH DATE: 09/19/16 PLAN: Continue Plan of Care Comments:: Plan to progress exercises and address gait deviations as appropriate.
--- NOTE | 2016-08-01 13:31 | RS.OTDNOTE ---
Subjective Date of Note: 08/01/16 Visit #: 2 Date of Evaluation: 07/30/16 Payer Source: MEDICARE Date of Onset/Injury/Change in Status: 05/20/16 Surgery Performed?: No Treatment Diagnosis: Generalized Weakness Treatment Side (optional): N/A *Precautions: avoiding shoulder extension past neutral. Prior Level of Function.....Patient was independent with: ADL's, Self Care, Work /Vocation, Caregiving, Ambulation/Mobility, Community Integration/Access History of Condition/Mechanism of Injury: Pt has increased weakness and had been sick for 3 weeks when his took him to the ER. Pt had a CAT Scan and was flown to [facility], [place] with a brain bleed. Pt then was found to have an infection in his blood. Level of Function: Pt requires assist for shower transfers, is very week. Pt uses a RW in the home and straight cane with CGA in the community. Pt has difficulty lifting and carrying items, difficulty dressing himself but he does this with extra time. Pt has difficulty staying on task and fine motor tasks of buttoning buttons. Functional Limitations: Self Care, ADL's, Reaching, Pushing, Pulling, Lifting, Carrying, Standing, Bending, Squatting, Ambulation, Community Access/Integration Current Complaints/Gains: Pt and spouse give good hx. States pt has been declining in fx and endurance for the past several months since hospitalization in [place]. States pt does not have "much of an appetite" and that he does not drink much water but spouse has been encourging to eat/drink more. Pain Assessment - Pain Description Pain Location: 0 Pain Description: 0 Modalities - Treatment Modality: Ultrasound Parameters/Method Applied: 1.5w/cm2 x 12 mins Treatment Area: cervical (B) Patient Position: Sitting - Hot Pack/Cryotherapy Treatment: Hot Pack (x 15 mins prior to PROM-AROM) Interventions - Exercise/Activities Exercise/Activities/Manual Therapy: Pt tolerated PROM/gentle cervical stretching ex x 3 reps/6 directions with pt and spouse ed on home stretching program and to hold x 20+ secs each direction. 1# ho bar ex of shoulder flexion and extension, 10/1. B UE restorator performed x 4 mins, 0 rests required. HOME EXERCISE PROGRAM: Gentle cervical stretching ex x 6 directions - Objective Findings Objective Findings:: (L) UE decreased shoulder AROM/increased tightness in traps - Charges Total Direct Minutes: 37 Total Treatment Time: 52 Procedures billed for this date of service:: HP US EX Assessment Patient Education: Education of diagnosis, Body/Joint mechanics, Home Exercise Program, Home Safety, Activity Modification, Education of Plan of Care Patient demonstrates compliance with HEP?: Yes Short Term Goals Goal #1: Pt to be independent with Home exercise program Goal to be met by: 08/13/16 Progress towards goal: Progressing Goal #2: Pt to increase BUE strength to 4+/5 Goal to be met by: 08/13/16 Progress towards goal: Progressing Goal #3: Pt to be able to tolerate 15 minutes of activity before requiring a rest. Goal to be met by: 08/13/16 Progress towards goal: Progressing Goal #4: Pt to increase LUE AROM shoulder flexion to 135 Goal to be met by: 08/13/16 Progress towards goal: Progressing Group Home Goals Goal #1: Pt to increase cervical rotation to the left by 50% Goal to be met by: 09/17/16 Progress towards goal: Progressing Goal #2: Pt to increase BUE strength to 5/5 Goal to be met by: 09/17/16 Progress towards goal: Progressing Goal #3: Pt to increase activity tolerance to 20 minutes with rests PRN. Goal to be met by: 09/17/16 Progress towards goal: Progressing Goal #4: Pt to increase LUE AROM to be WFL. Goal to be met by: 09/17/16 Progress towards goal: Progressing Plan PLAN OF CARE EXPIRES ON:: 09/17/16 ORDER # VISITS AND/OR THROUGH DATE: September 17, 2016 PLAN: Continue Plan of Care Frequency: 3 X week Duration: 4 weeks
--- NOTE | 2016-08-03 15:32 | RS.OPPTDN ---
Subjective Date of Note: 08/03/16 Visit #: 3 Date of Evaluation: 07/30/16 Payer Source: MEDICARE Treatment Diagnosis: general weakness, decline in function, gait abnormality Current Subjective/complaints:: Patient and report they have had a busy day of appointments. Patient states he is somewhat fatigued. *Precautions: avoiding shoulder extension past neutral. Pain Assessment - Pain Description Pain Location: States he has no pain. Pain Description: Debilitating constant neck pain like a constant spasm. Current Pain Intensity: 0 at rest Interventions - Exercise/Activities/Manual Therapy Exercises/Activities: In supine, 3# wand for chest press and overhead flexion. 1 1/2# to ankles for alt hip flexion and SAQ, both 2s/10reps. Isometric hip add and isometric trunk rotation. In sitting, alternating hip flexion, 1 1/2# LAQ's , and red theraband for ham curls, all 2s/10reps. Assisted patient onto stationary bike 4mins slow pace. [place] Balance [place] as patient is fatigued. Total minutes of Exercise: 30mins Manual Therapy: NA HOME EXERCISE PROGRAM: NA - Charges Total Direct Minutes: 30mins Total Treatment Time: 35mins Procedures billed for this date of service:: EX2 Assessment: Patient with increase fatigue today, but motivated to progress. Patient Education: Home Exercise Program, Home Safety, Activity Modification Patient demonstrates compliance with HEP?: Yes Short Term Goals Goal #1: Left LE strength 4/5 throughout. Goal to be met by: 08/21/16 Goal #2: Right hip strength 4+/5. Goal to be met by: 08/21/16 Goal #3: Bilateral SLR to 45 degrees. Goal to be met by: 08/21/16 Goal #4: Pt to transfer sit to stand consistently using good safety with supervision Goal to be met by: 08/14/16 Progress towards Goal:: Progressing Care Home Goals Goal #1: Pt knows HEP and to continue ex's to maintain level of function at D/C. Goal to be met by: 09/19/16 Goal #2: Pt to amb. independently w/ SC community distances and min. gt deviations. Goal to be met by: 09/19/16 Goal #3: Pt able to perform all selfcare and ADL's with minimal difficulty. Goal to be met by: 09/19/16 Goal #4: Score on Tinetti Assessment improved to 19/28. Goal to be met by: 09/19/16 Plan PLAN OF CARE EXPIRES ON:: 09/19/16 ORDER # VISITS AND/OR THROUGH DATE: 09/19/16 PLAN: Continue Plan of Care (Progress strengthening exercise to increase functional activity level.)
--- NOTE | 2016-08-03 16:01 | RS.OTDNOTE ---
Subjective Date of Note: 08/03/16 Visit #: 3 Date of Evaluation: 07/30/16 Payer Source: MEDICARE Date of Onset/Injury/Change in Status: 05/20/16 Surgery Performed?: No Treatment Diagnosis: Generalized Weakness Treatment Side (optional): N/A *Precautions: avoiding shoulder extension past neutral. Prior Level of Function.....Patient was independent with: ADL's, Self Care, Work /Vocation, Caregiving, Ambulation/Mobility, Community Integration/Access History of Condition/Mechanism of Injury: Pt has increased weakness and had been sick for 3 weeks when his took him to the ER. Pt had a CAT Scan and was flown to [facility] with a brain bleed. Pt then was found to have an infection in his blood. Level of Function: Pt requires assist for shower transfers, is very week. Pt uses a RW in the home and straight cane with CGA in the community. Pt has difficulty lifting and carrying items, difficulty dressing himself but he does this with extra time. Pt has difficulty staying on task and fine motor tasks of buttoning buttons. Functional Limitations: Self Care, ADL's, Reaching, Pushing, Pulling, Lifting, Carrying, Standing, Bending, Squatting, Ambulation, Community Access/Integration Current Complaints/Gains: Pt states he felt a little bit looser for the past cple days. States no increase of pain following tx and that he rested well the night following tx. Pain Assessment - Pain Description Pain Location: 0 Pain Description: 0 Modalities - Treatment Modality: Ultrasound Parameters/Method Applied: 1.5w/cm2 x 12 mins Treatment Area: cervical Patient Position: Sitting - Hot Pack/Cryotherapy Treatment: Hot Pack (x 15 mins) Interventions - Exercise/Activities Exercise/Activities/Manual Therapy: Pt tolerated PROM/gentle cervical stretching /manual therapy and ex x 3 reps/6 directions with pt and spouse ed on home stretching program and to hold x 20+ secs each direction. 1# ho bar ex of shoulder flexion and extension, 10/1. B UE restorator performed x 4 mins, 0 rests required. HOME EXERCISE PROGRAM: Gentle cervical stretching ex x 6 directions - Objective Findings Objective Findings:: (L) UE decreased shoulder AROM/increased tightness in traps - Charges Total Direct Minutes: 47 Total Treatment Time: 62 Procedures billed for this date of service:: HP US EX MT Assessment Patient Education: Education of diagnosis, Body/Joint mechanics, Home Exercise Program, Home Safety, Activity Modification, Education of Plan of Care Patient demonstrates compliance with HEP?: Yes Short Term Goals Goal #1: Pt to be independent with Home exercise program Goal to be met by: 08/13/16 Progress towards goal: Progressing Goal #2: Pt to increase BUE strength to 4+/5 Goal to be met by: 08/13/16 Progress towards goal: Progressing Goal #3: Pt to be able to tolerate 15 minutes of activity before requiring a rest. Goal to be met by: 08/13/16 Progress towards goal: Progressing Goal #4: Pt to increase LUE AROM shoulder flexion to 135 Goal to be met by: 08/13/16 Progress towards goal: Progressing Custodial Goals Goal #1: Pt to increase cervical rotation to the left by 50% Goal to be met by: 09/17/16 Progress towards goal: Progressing Goal #2: Pt to increase BUE strength to 5/5 Goal to be met by: 09/17/16 Progress towards goal: Progressing Goal #3: Pt to increase activity tolerance to 20 minutes with rests PRN. Goal to be met by: 09/17/16 Progress towards goal: Progressing Goal #4: Pt to increase LUE AROM to be WFL. Goal to be met by: 09/17/16 Progress towards goal: Progressing Plan PLAN OF CARE EXPIRES ON:: 09/17/16 ORDER # VISITS AND/OR THROUGH DATE: September 17, 2016 PLAN: Continue Plan of Care Frequency: 3 X week Duration: 4 weeks
--- NOTE | 2016-08-06 12:14 | RS.OPPTDN ---
Subjective Date of Note: 08/06/16 Visit #: 4 Date of Evaluation: 07/30/16 Payer Source: MEDICARE Treatment Diagnosis: general weakness, decline in function, gait abnormality Current Subjective/complaints:: Patient reports he did well following last session. Reports increase right knee pain today. *Precautions: avoiding shoulder extension past neutral. Pain Assessment - Pain Description Pain Location: States he has no pain. Pain Description: Debilitating constant neck pain like a constant spasm. Current Pain Intensity: 0 at rest Interventions - Exercise/Activities/Manual Therapy Exercises/Activities: In supine, 3# wand for chest press and overhead flexion. Increased to 3# to ankles for alt hip flexion and SAQ, both 2s/10reps. Red theraband for hip abduction in hook-lying, 2s/10reps. Isometric hip add and isometric trunk rotation. In sitting, increased to 3# LAQ's, and red theraband for ham curls, all 2s/10reps. Began leg press 15#, 3s/10reps. Assisted patient onto stationary bike 4mins slow pace. Total minutes of Exercise: 45mins Manual Therapy: NA HOME EXERCISE PROGRAM: Alt hip flexion and isometric hip flexion in supine. - Charges Total Direct Minutes: 45mins Total Treatment Time: 45mins Procedures billed for this date of service:: EX3 Assessment: Patient able to tolerate increase in resistance with strengthening exercise. Patient demonstrates compliance with HEP?: Yes Short Term Goals Goal #1: Left LE strength 4/5 throughout. Goal to be met by: 08/21/16 Goal #2: Right hip strength 4+/5. Goal to be met by: 08/21/16 Goal #3: Bilateral SLR to 45 degrees. Goal to be met by: 08/21/16 Goal #4: Pt to transfer sit to stand consistently using good safety with supervision Goal to be met by: 08/14/16 Progress towards Goal:: Progressing Care Home Goals Goal #1: Pt knows HEP and to continue ex's to maintain level of function at D/C. Goal to be met by: 09/19/16 Goal #2: Pt to amb. independently w/ SC community distances and min. gt deviations. Goal to be met by: 09/19/16 Goal #3: Pt able to perform all selfcare and ADL's with minimal difficulty. Goal to be met by: 09/19/16 Goal #4: Score on Tinetti Assessment improved to 19/28. Goal to be met by: 09/19/16 Plan PLAN OF CARE EXPIRES ON:: 09/21/16 ORDER # VISITS AND/OR THROUGH DATE: 09/19/16 PLAN: Continue Plan of Care
--- NOTE | 2016-08-06 15:49 | RS.OTDNOTE ---
Subjective Date of Note: 08/06/16 Visit #: 4 Date of Evaluation: 07/30/16 Payer Source: MEDICARE Date of Onset/Injury/Change in Status: 05/20/16 Surgery Performed?: No Treatment Diagnosis: Generalized Weakness Treatment Side (optional): N/A *Precautions: avoiding shoulder extension past neutral. Prior Level of Function.....Patient was independent with: ADL's, Self Care, Work /Vocation, Caregiving, Ambulation/Mobility, Community Integration/Access History of Condition/Mechanism of Injury: Pt has increased weakness and had been sick for 3 weeks when his took him to the ER. Pt had a CAT Scan and was flown to [facility] with a brain bleed. Pt then was found to have an infection in his blood. Level of Function: Pt requires assist for shower transfers, is very week. Pt uses a RW in the home and straight cane with CGA in the community. Pt has difficulty lifting and carrying items, difficulty dressing himself but he does this with extra time. Pt has difficulty staying on task and fine motor tasks of buttoning buttons. Functional Limitations: Self Care, ADL's, Reaching, Pushing, Pulling, Lifting, Carrying, Standing, Bending, Squatting, Ambulation, Community Access/Integration Current Complaints/Gains: Pt states pain relief over the wknd following therapy. States compliance with B UE/cervical AROM. Pain Assessment - Pain Description Pain Location: 0 Pain Description: 0 Modalities - Treatment Modality: Ultrasound Parameters/Method Applied: 1.5w/cm2 x 7 mins x 2 Treatment Area: cervical/scapula Patient Position: Sitting - Hot Pack/Cryotherapy Treatment: Hot Pack (HP x 15 mins) Interventions - Exercise/Activities Exercise/Activities/Manual Therapy: Pt tolerated PROM/gentle cervical stretching /manual therapy and ex x 3 reps/6 directions with pt and spouse ed on home stretching program and to hold x 20+ secs each direction. 1# ho bar ex of shoulder flexion and extension, 10/. B UE restorator performed x 5 mins, 0 rests required. Medium strength hand gripper utilized B hands along with ISO ex x 4 directions HOME EXERCISE PROGRAM: Gentle cervical stretching ex x 6 directions - Objective Findings Objective Findings:: (L) UE decreased shoulder AROM/increased tightness in traps - Charges Total Direct Minutes: 50 Total Treatment Time: 65 Procedures billed for this date of service:: HP US EX MT Assessment Patient Education: Education of diagnosis, Body/Joint mechanics, Home Exercise Program, Home Safety, Activity Modification, Education of Plan of Care Patient demonstrates compliance with HEP?: Yes Short Term Goals Goal #1: Pt to be independent with Home exercise program Goal to be met by: 08/13/16 Progress towards goal: Progressing Goal #2: Pt to increase BUE strength to 4+/5 Goal to be met by: 08/13/16 Progress towards goal: Progressing Goal #3: Pt to be able to tolerate 15 minutes of activity before requiring a rest. Goal to be met by: 08/13/16 Progress towards goal: Progressing Goal #4: Pt to increase LUE AROM shoulder flexion to 135 Goal to be met by: 08/13/16 Progress towards goal: Progressing General Assembler Installer Goals Goal #1: Pt to increase cervical rotation to the left by 50% Goal to be met by: 09/17/16 Progress towards goal: Progressing Goal #2: Pt to increase BUE strength to 5/5 Goal to be met by: 09/17/16 Progress towards goal: Progressing Goal #3: Pt to increase activity tolerance to 20 minutes with rests PRN. Goal to be met by: 09/17/16 Progress towards goal: Progressing Goal #4: Pt to increase LUE AROM to be WFL. Goal to be met by: 09/17/16 Progress towards goal: Progressing Plan PLAN OF CARE EXPIRES ON:: 09/17/16 ORDER # VISITS AND/OR THROUGH DATE: September 17, 2016 PLAN: Continue Plan of Care Frequency: 2 X week Duration: 6 weeks
--- NOTE | 2016-08-08 14:08 | RS.OPPTDN ---
Subjective Date of Note: 08/08/16 Visit #: 5 Date of Evaluation: 07/30/16 Payer Source: MEDICARE Treatment Diagnosis: general weakness, decline in function, gait abnormality Current Subjective/complaints:: Patient denies any soreness following last session of resistive exericse. *Precautions: avoiding shoulder extension past neutral. Pain Assessment - Pain Description Pain Location: States he has no pain. Pain Description: Debilitating constant neck pain like a constant spasm. Current Pain Intensity: 0 at rest Other Comments regarding Pain:: Patient does report some right knee pain with some activities and with moderate manual pressure. Right knee continues to have increased heat and swelling upon palpation. Interventions - Exercise/Activities/Manual Therapy Exercises/Activities: In supine, 3# to ankles for alt hip flexion and SAQ, both 2s/10reps. Red theraband for hip abduction in hook-lying, 2s/10reps. Isometric hip add and isometric trunk rotation. Began SLR with 1#, 2s/10reps each. Red theraband for ham curls and ankle df, 2s/10reps each. In sitting, 3# LAQ's, and red theraband for ham curls, all 2s/10reps. Leg press increased to 30#, 50reps with breaks. Total minutes of Exercise: 40mins Manual Therapy: NA HOME EXERCISE PROGRAM: Alt hip flexion and isometric hip flexion in supine. - Charges Total Direct Minutes: 40mins Total Treatment Time: 45mins Procedures billed for this date of service:: EX3 Assessment: Patient progressing with resistive exercise for strengthening. Patient Education: Home Exercise Program, Home Safety Patient demonstrates compliance with HEP?: Yes Short Term Goals Goal #1: Left LE strength 4/5 throughout. Goal to be met by: 08/21/16 Progress towards Goal:: Progressing Goal #2: Right hip strength 4+/5. Goal to be met by: 08/21/16 Progress towards Goal:: Progressing Goal #3: Bilateral SLR to 45 degrees. Goal to be met by: 08/21/16 Progress towards Goal:: Progressing Goal #4: Pt to transfer sit to stand consistently using good safety with supervision Goal to be met by: 08/14/16 Progress towards Goal:: Progressing Group Home Goals Goal #1: Pt knows HEP and to continue ex's to maintain level of function at D/C. Goal to be met by: 09/19/16 Goal #2: Pt to amb. independently w/ SC community distances and min. gt deviations. Goal to be met by: 09/19/16 Goal #3: Pt able to perform all selfcare and ADL's with minimal difficulty. Goal to be met by: 09/19/16 Goal #4: Score on Tinetti Assessment improved to 19/28. Goal to be met by: 09/19/16 Plan PLAN OF CARE EXPIRES ON:: 09/19/16 ORDER # VISITS AND/OR THROUGH DATE: 09/19/16 PLAN: Continue Plan of Care (Continue progressive trunk and LE strengthening exercise to improve safe, functional activity level.)
--- NOTE | 2016-08-08 15:44 | RS.OTDNOTE ---
Subjective Date of Note: 08/08/16 Visit #: 4 Date of Evaluation: 07/30/16 Payer Source: MEDICARE Date of Onset/Injury/Change in Status: 05/20/16 Surgery Performed?: No Treatment Diagnosis: Generalized Weakness Treatment Side (optional): N/A *Precautions: avoiding shoulder extension past neutral. Prior Level of Function.....Patient was independent with: ADL's, Self Care, Work /Vocation, Caregiving, Ambulation/Mobility, Community Integration/Access History of Condition/Mechanism of Injury: Pt has increased weakness and had been sick for 3 weeks when his took him to the ER. Pt had a CAT Scan and was flown to [facility] with a brain bleed. Pt then was found to have an infection in his blood. Level of Function: Pt requires assist for shower transfers, is very week. Pt uses a RW in the home and straight cane with CGA in the community. Pt has difficulty lifting and carrying items, difficulty dressing himself but he does this with extra time. Pt has difficulty staying on task and fine motor tasks of buttoning buttons. Functional Limitations: Self Care, ADL's, Reaching, Pushing, Pulling, Lifting, Carrying, Standing, Bending, Squatting, Ambulation, Community Access/Integration Current Complaints/Gains: Pt pleased with progress. Pt and spouse states that pt was able to clip gerardo bushes outside following the last treatment day. states ROM continues improving and that he is hoping to return to cardiac rehab. Pain Assessment - Pain Description Pain Location: 0 Pain Description: 0 Modalities - Treatment Modality: Ultrasound Parameters/Method Applied: 1.5w/cm2 x 12 mins to B cervical /scapula Patient Position: Sitting - Hot Pack/Cryotherapy Treatment: Hot Pack (HP x 15 mins) Interventions - Exercise/Activities Exercise/Activities/Manual Therapy: Pt tolerated PROM/gentle cervical stretching /manual therapy and ex x 3 reps/6 directions with pt and spouse ed on home stretching program and to hold x 20+ secs each direction. 1# ho bar ex of shoulder flexion and extension, 10/1. B UE restorator performed x 5 mins, 0 rests required. Medium strength hand gripper utilized B hands along with ISO ex x 4 directions HOME EXERCISE PROGRAM: Gentle cervical stretching ex x 6 directions - Objective Findings Objective Findings:: (L) UE decreased shoulder AROM/increased tightness in traps - Charges Total Direct Minutes: 45 Total Treatment Time: 60 Procedures billed for this date of service:: HP US MT EX Assessment Patient Education: Education of diagnosis, Body/Joint mechanics, Home Exercise Program, Home Safety, Activity Modification, Education of Plan of Care Patient demonstrates compliance with HEP?: Yes Short Term Goals Goal #1: Pt to be independent with Home exercise program Goal to be met by: 08/13/16 Progress towards goal: Partially Met Goal #2: Pt to increase BUE strength to 4+/5 Goal to be met by: 08/13/16 Progress towards goal: Progressing Goal #3: Pt to be able to tolerate 15 minutes of activity before requiring a rest. Goal to be met by: 08/13/16 Progress towards goal: Partially Met Goal #4: Pt to increase LUE AROM shoulder flexion to 135 Goal to be met by: 08/13/16 Progress towards goal: Progressing White Washer Piler Goals Goal #1: Pt to increase cervical rotation to the left by 50% Goal to be met by: 09/17/16 Progress towards goal: Progressing Goal #2: Pt to increase BUE strength to 5/5 Goal to be met by: 09/17/16 Progress towards goal: Progressing Goal #3: Pt to increase activity tolerance to 20 minutes with rests PRN. Goal to be met by: 09/17/16 Progress towards goal: Progressing Goal #4: Pt to increase LUE AROM to be WFL. Goal to be met by: 09/17/16 Progress towards goal: Progressing Plan PLAN OF CARE EXPIRES ON:: 09/17/16 ORDER # VISITS AND/OR THROUGH DATE: September 17, 2016 PLAN: Continue Plan of Care Frequency: 3 X week Duration: 4 weeks
--- NOTE | 2016-08-10 14:05 | RS.OPPTDN ---
Subjective Date of Note: 08/10/16 Visit #: 6 Date of Evaluation: 07/30/16 Payer Source: MEDICARE Treatment Diagnosis: general weakness, decline in function, gait abnormality Current Subjective/complaints:: Patient reports he feels he is getting stronger. States he is doing better with getray gup from chair and bed at home. *Precautions: avoiding shoulder extension past neutral. Pain Assessment - Pain Description Pain Location: States he has no pain. Pain Description: Debilitating constant neck pain like a constant spasm. Current Pain Intensity: 0 at rest Interventions - Exercise/Activities/Manual Therapy Exercises/Activities: In supine, 3# to ankles for alt hip flexion and SAQ, both 2s/10reps. Red theraband for hip abduction in hook-lying, 2s/10reps. Isometric hip add and isometric trunk rotation. Red theraband for ham curls and ankle df, 2s/10reps each. In sitting, 3# LAQ's, and red theraband for ham curls, 2s/ 10reps. And alt hip flexion 3#, 10reps. Leg press increased to 30#, 50reps. Ended with 5mins on stationary bike(not included in direct time). Total minutes of Exercise: 40mins Manual Therapy: NA HOME EXERCISE PROGRAM: Alt hip flexion and isometric hip flexion in supine. - Charges Total Direct Minutes: 40mins Total Treatment Time: 45mins Procedures billed for this date of service:: EX3 Assessment: Patient progressing with strengthening exercise and reporting improvement in functional activities. Short Term Goals Goal #1: Left LE strength 4/5 throughout. Goal to be met by: 08/21/16 Progress towards Goal:: Progressing Goal #2: Right hip strength 4+/5. Goal to be met by: 08/21/16 Progress towards Goal:: Progressing Goal #3: Bilateral SLR to 45 degrees. Goal to be met by: 08/21/16 Progress towards Goal:: Progressing Goal #4: Pt to transfer sit to stand consistently using good safety with supervision Goal to be met by: 08/14/16 Progress towards Goal:: Progressing Half-Way Goals Goal #1: Pt knows HEP and to continue ex's to maintain level of function at D/C. Goal to be met by: 09/19/16 Goal #2: Pt to amb. independently w/ SC community distances and min. gt deviations. Goal to be met by: 09/19/16 Progress towards goal: Progressing Goal #3: Pt able to perform all selfcare and ADL's with minimal difficulty. Goal to be met by: 09/19/16 Progress towards goal: Progressing Goal #4: Score on Tinetti Assessment improved to 19/28. Goal to be met by: 09/19/16 Plan PLAN OF CARE EXPIRES ON:: 09/19/16 ORDER # VISITS AND/OR THROUGH DATE: 09/19/16 PLAN: Continue Plan of Care
--- NOTE | 2016-08-10 15:54 | RS.OTDNOTE ---
Subjective Date of Note: 08/10/16 Visit #: 6 Date of Evaluation: 07/30/16 Payer Source: MEDICARE Date of Onset/Injury/Change in Status: 05/20/16 Surgery Performed?: No Treatment Diagnosis: Generalized Weakness Treatment Side (optional): N/A *Precautions: avoiding shoulder extension past neutral. Prior Level of Function.....Patient was independent with: ADL's, Self Care, Work /Vocation, Caregiving, Ambulation/Mobility, Community Integration/Access History of Condition/Mechanism of Injury: Pt has increased weakness and had been sick for 3 weeks when his took him to the ER. Pt had a CAT Scan and was flown to [facility] [place] with a brain bleed. Pt then was found to have an infection in his blood. Level of Function: Pt requires assist for shower transfers, is very week. Pt uses a RW in the home and straight cane with CGA in the community. Pt has difficulty lifting and carrying items, difficulty dressing himself but he does this with extra time. Pt has difficulty staying on task and fine motor tasks of buttoning buttons. Functional Limitations: Self Care, ADL's, Reaching, Pushing, Pulling, Lifting, Carrying, Standing, Bending, Squatting, Ambulation, Community Access/Integration Current Complaints/Gains: Pt states he feels "looser" and he is walking better. States he has a B UE sly system from a prior RTC surgery and will perform for HEP. Pain Assessment - Pain Description Pain Location: 0 Pain Description: 0 Modalities - Treatment Modality: Ultrasound Parameters/Method Applied: 1.5w/cm2 x 15 mins total Patient Position: Sitting - Hot Pack/Cryotherapy Treatment: Hot Pack (x 15 mins) Interventions - Exercise/Activities Exercise/Activities/Manual Therapy: Pt tolerated PROM/gentle cervical stretching /manual therapy and ex x 3 reps/6 directions with pt and spouse ed on home stretching program and to hold x 20+ secs each direction. 1# ho bar ex of shoulder flexion and extension, 10/1. B UE restorator performed x 5 mins, 0 rests required. Medium strength hand gripper utilized B hands along with ISO ex x 4 directions. Pt also performed B UE sly system x 1+ mins HOME EXERCISE PROGRAM: Gentle cervical stretching ex x 6 directions - Objective Findings Objective Findings:: (L) UE decreased shoulder AROM/increased tightness in traps - Charges Total Direct Minutes: 45 Total Treatment Time: 60 Procedures billed for this date of service:: HP US EX2 Assessment Patient Education: Education of diagnosis, Body/Joint mechanics, Home Exercise Program, Home Safety, Activity Modification, Education of Plan of Care Patient demonstrates compliance with HEP?: Yes Short Term Goals Goal #1: Pt to be independent with Home exercise program Goal to be met by: 08/13/16 Progress towards goal: Partially Met Goal #2: Pt to increase BUE strength to 4+/5 Goal to be met by: 08/13/16 Progress towards goal: Progressing Goal #3: Pt to be able to tolerate 15 minutes of activity before requiring a rest. Goal to be met by: 08/13/16 Progress towards goal: Met Goal #4: Pt to increase LUE AROM shoulder flexion to 135 Goal to be met by: 08/13/16 Progress towards goal: Partially Met (A/AROM) Diabetes Education Coordinator Goals Goal #1: Pt to increase cervical rotation to the left by 50% Goal to be met by: 09/17/16 Progress towards goal: Progressing Goal #2: Pt to increase BUE strength to 5/5 Goal to be met by: 09/17/16 Progress towards goal: Progressing Goal #3: Pt to increase activity tolerance to 20 minutes with rests PRN. Goal to be met by: 09/17/16 Progress towards goal: Progressing Goal #4: Pt to increase LUE AROM to be WFL. Goal to be met by: 09/17/16 Progress towards goal: Progressing Plan PLAN OF CARE EXPIRES ON:: 09/17/16 ORDER # VISITS AND/OR THROUGH DATE: September 17, 2016 PLAN: Continue Plan of Care Frequency: 3 X week Duration: 3 weeks
--- NOTE | 2016-08-13 11:28 | RS.OPPTDN ---
Subjective Date of Note: 08/13/16 Visit #: 7 Date of Evaluation: 07/30/16 Payer Source: MEDICARE Treatment Diagnosis: general weakness, decline in function, gait abnormality Current Subjective/complaints:: Patient reports he is gaining ground with strengthening. States he continues to use cane and some loss of balance during the day. *Precautions: avoiding shoulder extension past neutral. Pain Assessment - Pain Description Pain Location: Discomfort right knee Pain Description: Debilitating constant neck pain like a constant spasm. Current Pain Intensity: mild right knee Interventions - Exercise/Activities/Manual Therapy Exercises/Activities: In supine, 3# to ankles for alt hip flexion and SAQ, both 2s/10reps. Red theraband for hip abduction in hook-lying, 2s/10reps. Isometric hip add and isometric trunk rotation. Red theraband for ham curls and ankle df, 2s/10reps each. 3# wand for overhead shoulder flexion with ball squeeze between knees, 10reps. 1# for SLR, 2s/10reps each. In sitting, 2# LAQ's, and red theraband for ham curls, 2s/10reps. And alt hip flexion no weight, 10reps. Leg press increased to 30#, 50reps. Ended with 6mins on stationary bike(not included in direct time). Total minutes of Exercise: 40mins Manual Therapy: NA HOME EXERCISE PROGRAM: Alt hip flexion and isometric hip flexion in supine. - Charges Total Direct Minutes: 40mins Total Treatment Time: 46mins Procedures billed for this date of service:: EX3 Assessment: Patient making slow but steady progress. He will benefit from continue strengthening to increase his safe, functional mobility. Patient Education: Home Exercise Program, Home Safety, Activity Modification Patient demonstrates compliance with HEP?: Yes Short Term Goals Goal #1: Left LE strength 4/5 throughout. Goal to be met by: 08/21/16 Progress towards Goal:: Progressing Goal #2: Right hip strength 4+/5. Goal to be met by: 08/21/16 Progress towards Goal:: Progressing Goal #3: Bilateral SLR to 45 degrees. Goal to be met by: 08/21/16 Progress towards Goal:: Progressing Goal #4: Pt to transfer sit to stand consistently using good safety with supervision Goal to be met by: 08/14/16 Progress towards Goal:: Progressing Vp Goals Goal #1: Pt knows HEP and to continue ex's to maintain level of function at D/C. Goal to be met by: 09/19/16 Goal #2: Pt to amb. independently w/ SC community distances and min. gt deviations. Goal to be met by: 09/19/16 Progress towards goal: Progressing Goal #3: Pt able to perform all selfcare and ADL's with minimal difficulty. Goal to be met by: 09/19/16 Progress towards goal: Progressing Goal #4: Score on Tinetti Assessment improved to 19/28. Goal to be met by: 09/19/16 Plan PLAN OF CARE EXPIRES ON:: 09/19/16 ORDER # VISITS AND/OR THROUGH DATE: 09/19/16 PLAN: Continue Plan of Care
--- NOTE | 2016-08-13 14:31 | RS.OTDNOTE ---
Subjective Date of Note: 08/13/16 Visit #: 7 Date of Evaluation: 07/30/16 Payer Source: MEDICARE Date of Onset/Injury/Change in Status: 05/20/16 Surgery Performed?: No Treatment Diagnosis: Generalized Weakness Treatment Side (optional): N/A *Precautions: avoiding shoulder extension past neutral. Prior Level of Function.....Patient was independent with: ADL's, Self Care, Work /Vocation, Caregiving, Ambulation/Mobility, Community Integration/Access History of Condition/Mechanism of Injury: Pt has increased weakness and had been sick for 3 weeks when his took him to the ER. Pt had a CAT Scan and was flown to [facility] [place] with a brain bleed. Pt then was found to have an infection in his blood. Level of Function: Pt requires assist for shower transfers, is very week. Pt uses a RW in the home and straight cane with CGA in the community. Pt has difficulty lifting and carrying items, difficulty dressing himself but he does this with extra time. Pt has difficulty staying on task and fine motor tasks of buttoning buttons. Functional Limitations: Self Care, ADL's, Reaching, Pushing, Pulling, Lifting, Carrying, Standing, Bending, Squatting, Ambulation, Community Access/Integration Current Complaints/Gains: 0 new c/o's. States he is not sure therapy is helping with CROM but feels his endurance is increased. States he has been helping more with home chores and feels UE motion is better. Pain Assessment - Pain Description Pain Description: Tightness, Dull Pain Location: 0 Pain Description: 0 Modalities - Treatment Modality: Ultrasound Parameters/Method Applied: 1.5w/cm2 x 12 mins, cont Treatment Area: cervical, scapula, PS Patient Position: Sitting - Hot Pack/Cryotherapy Treatment: Hot Pack, Cryotherapy Interventions - Exercise/Activities Exercise/Activities/Manual Therapy: Pt tolerated PROM/gentle cervical stretching /manual therapy and ex x 3 reps/6 directions with pt and spouse ed on home stretching program and to hold x 20+ secs each direction. 1# ho bar ex of shoulder flexion and extension, 10/1. B UE restorator performed x 5 mins, 0 rests required. Medium strength hand gripper utilized B hands along with ISO ex x 4 directions. Pt also performed B UE sly system x 1+ mins HOME EXERCISE PROGRAM: Gentle cervical stretching ex x 6 directions - Objective Findings Objective Findings:: (L) UE decreased shoulder AROM/increased tightness in traps - Charges Total Direct Minutes: 45 Total Treatment Time: 65 Procedures billed for this date of service:: HP US MT EX Assessment Patient Education: Education of diagnosis, Body/Joint mechanics, Home Exercise Program, Home Safety, Activity Modification, Education of Plan of Care Patient demonstrates compliance with HEP?: Yes Short Term Goals Goal #1: Pt to be independent with Home exercise program Goal to be met by: 08/13/16 Progress towards goal: Partially Met Goal #2: Pt to increase BUE strength to 4+/5 Goal to be met by: 08/13/16 Progress towards goal: Progressing Goal #3: Pt to be able to tolerate 15 minutes of activity before requiring a rest. 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 Goal to be met by: 09/17/16 Progress towards goal: Progressing Goal #4: Pt to increase LUE AROM to be WFL. Goal to be met by: 09/17/16 Progress towards goal: Progressing Plan PLAN OF CARE EXPIRES ON:: 09/17/16 ORDER # VISITS AND/OR THROUGH DATE: September 17, 2016 PLAN: Continue Plan of Care Frequency: 3 X week Duration: 3 weeks
--- NOTE | 2016-08-15 15:54 | RS.OTDNOTE ---
Subjective Date of Note: 08/15/16 Visit #: 8 Date of Evaluation: 07/30/16 Payer Source: MEDICARE Date of Onset/Injury/Change in Status: 05/20/16 Surgery Performed?: No Treatment Diagnosis: Generalized Weakness Treatment Side (optional): N/A *Precautions: avoiding shoulder extension past neutral. Prior Level of Function.....Patient was independent with: ADL's, Self Care, Work /Vocation, Caregiving, Ambulation/Mobility, Community Integration/Access History of Condition/Mechanism of Injury: Pt has increased weakness and had been sick for 3 weeks when his took him to the ER. Pt had a CAT Scan and was flown to [facility] with a brain bleed. Pt then was found to have an infection in his blood. Level of Function: Pt requires assist for shower transfers, is very week. Pt uses a RW in the home and straight cane with CGA in the community. Pt has difficulty lifting and carrying items, difficulty dressing himself but he does this with extra time. Pt has difficulty staying on task and fine motor tasks of buttoning buttons. Functional Limitations: Self Care, ADL's, Reaching, Pushing, Pulling, Lifting, Carrying, Standing, Bending, Squatting, Ambulation, Community Access/Integration Current Complaints/Gains: Pt and spouse states pt is moving better today. States pt has been performing B UE and neck ROM at home. Pain Assessment - Pain Description Pain Description: Tightness, Dull Pain Location: 0 Pain Description: 0 Modalities - Treatment Modality: Ultrasound Parameters/Method Applied: 1.5w/cm2 x 10 mins Treatment Area: shoulder/cervical Patient Position: Sitting - Hot Pack/Cryotherapy Treatment: Hot Pack Interventions - Exercise/Activities Exercise/Activities/Manual Therapy: Pt tolerated PROM/gentle cervical stretching /manual therapy and ex x 3 reps/6 directions with pt and spouse ed on home stretching program and to hold x 20+ secs each direction. 1# ho bar ex of shoulder flexion and extension, 02/17. B UE restorator performed x 6 mins, 0 rests required. Medium strength hand gripper utilized B hands along with ISO ex x 4 directions. Pt also performed B UE sly system x 1+ mins HOME EXERCISE PROGRAM: Gentle cervical stretching ex x 6 directions - Objective Findings Objective Findings:: (L) UE decreased shoulder AROM/increased tightness in traps - Charges Total Direct Minutes: 45 Total Treatment Time: 60 Procedures billed for this date of service:: HP US EX2 Assessment Patient Education: Education of diagnosis, Body/Joint mechanics, Home Exercise Program, Home Safety, Activity Modification, Education of Plan of Care Patient demonstrates compliance with HEP?: Yes Short Term Goals Goal #1: Pt to be independent with Home exercise program Goal to be met by: 08/13/16 Progress towards goal: Partially Met Goal #2: Pt to increase BUE strength to 4+/5 Goal to be met by: 08/13/16 Progress towards goal: Progressing Goal #3: Pt to be able to tolerate 15 minutes of activity before requiring a rest. Goal to be met by: 08/13/16 Progress towards goal: Met Goal #4: Pt to increase LUE AROM shoulder flexion to 135 Goal to be met by: 08/13/16 Progress towards goal: Partially Met (A/AROM) Comments: A/AROM Half-Way Goals Goal #1: Pt to increase cervical rotation to the left by 50% Goal to be met by: 09/17/16 Progress towards goal: Progressing Goal #2: Pt to increase BUE strength to 5/5 Goal to be met by: 09/17/16 Progress towards goal: Progressing Goal #3: Pt to increase activity tolerance to 20 minutes with rests PRN. Goal to be met by: 09/17/16 Progress towards goal: Progressing Goal #4: Pt to increase LUE AROM to be WFL. Goal to be met by: 09/17/16 Progress towards goal: Progressing Plan PLAN OF CARE EXPIRES ON:: 09/17/16 ORDER # VISITS AND/OR THROUGH DATE: September 17, 2016 PLAN: Continue Plan of Care Frequency: 3 X week Duration: 3 weeks
--- NOTE | 2016-08-15 16:34 | RS.OPPTDN ---
Subjective Date of Note: 08/15/16 Visit #: 8 Date of Evaluation: 07/30/16 Payer Source: MEDICARE Treatment Diagnosis: general weakness, decline in function, gait abnormality Current Subjective/complaints:: Patient reports he continues to feel he is making progress with his strength and is walking better. *Precautions: avoiding shoulder extension past neutral. Pain Assessment - Pain Description Pain Location: Discomfort right knee Pain Description: Debilitating constant neck pain like a constant spasm. Current Pain Intensity: mild right knee Interventions - Exercise/Activities/Manual Therapy Exercises/Activities: In supine, 3# to ankles for alt hip flexion and SAQ, both 2s/10reps. Red theraband for hip abduction in hook-lying, 2s/10reps. Isometric hip add and isometric trunk rotation. Red theraband for ham curls and ankle df, 2s/10reps each. 3# wand for overhead shoulder flexion with ball squeeze between knees, 10reps. Green theraband for short trunk rotation, 2s//10rpes each. Increased to 1 1/2# for SLR, 2s/10reps each. In sitting, increased to 3# LAQ's , and red theraband for ham curls, 2s/10reps each. And alt hip flexion 3#, 2s/ 10reps. Leg press increased to 45#, 50reps. Ended with 6mins on stationary bike( not included in direct time). Total minutes of Exercise: 40mins/46mins Manual Therapy: NA HOME EXERCISE PROGRAM: Alt hip flexion and isometric hip flexion in supine. - Objective Findings Observations,measurements,etc.: Patient demos increase step height during swing phase, especially on the right which is his weaker side. - Charges Total Direct Minutes: 40mins Total Treatment Time: 46mins Procedures billed for this date of service:: EX3 Assessment: Patient progressing with strengthening exercise and with improved gait pattern. Patient Education: Body/Joint mechanics, Home Exercise Program, Home Safety Patient demonstrates compliance with HEP?: Yes Short Term Goals Goal #1: Left LE strength 4/5 throughout. Goal to be met by: 08/21/16 Progress towards Goal:: Progressing Goal #2: Right hip strength 4+/5. Goal to be met by: 08/21/16 Progress towards Goal:: Progressing Goal #3: Bilateral SLR to 45 degrees. Goal to be met by: 08/21/16 Progress towards Goal:: Progressing Goal #4: Pt to transfer sit to stand consistently using good safety with supervision Goal to be met by: 08/14/16 Progress towards Goal:: Progressing Marketing Assistant Retail Division Goals Goal #1: Pt knows HEP and to continue ex's to maintain level of function at D/C. Goal to be met by: 09/19/16 Goal #2: Pt to amb. independently w/ SC community distances and min. gt deviations. Goal to be met by: 09/19/16 Progress towards goal: Progressing Goal #3: Pt able to perform all selfcare and ADL's with minimal difficulty. Goal to be met by: 09/19/16 Progress towards goal: Progressing Goal #4: Score on Tinetti Assessment improved to . Goal to be met by: 09/19/16 Plan PLAN OF CARE EXPIRES ON:: 09/19/16 ORDER # VISITS AND/OR THROUGH DATE: 09/19/16 PLAN: Continue Plan of Care
--- NOTE | 2016-08-17 14:26 | RS.OPPTDN ---
Subjective Date of Note: 08/17/16 Visit #: 9 Date of Evaluation: 07/30/16 Payer Source: MEDICARE Treatment Diagnosis: general weakness, decline in function, gait abnormality Current Subjective/complaints:: Patient continues to state he feels like he is gaining grown with strength. Patient agrees he is taking better steps when walking. *Precautions: avoiding shoulder extension past neutral. Pain Assessment - Pain Description Pain Location: Discomfort right knee Pain Description: Debilitating constant neck pain like a constant spasm. Current Pain Intensity: mild right knee Interventions - Exercise/Activities/Manual Therapy Exercises/Activities: In supine, increased to 4# to ankles for alt hip flexion and SAQ, both 2s/10reps. Increased to blue theraband for hip abduction in hook- lying, 2s/10reps. Isometric hip add and isometric trunk rotation. Green theraband for ham curls and blue theraband for ankle df, 2s/10reps each. Green theraband for short trunk rotation, 2s//10rpes each. Increased to 2# for SLR, 2s/10reps each. In sitting, increased to 4# LAQ's, and blue theraband for ham curls, 2s/10reps each. Leg press at 30#, 50reps. Ended with 7mins on stationary bike(not included in direct time). Total minutes of Exercise: 50mins/57mins Manual Therapy: NA HOME EXERCISE PROGRAM: Alt hip flexion and isometric hip flexion in supine. SLR. - Objective Findings Observations,measurements,etc.: Patient rerquired short therapeutic breaks today as resistance was increased with mat exercises. - Charges Total Direct Minutes: 50mins Total Treatment Time: 57mins Procedures billed for this date of service:: EX3 Assessment: Patient able to tolerate increase in resistive exercise. Patient motivated to exercise and progress back to PLOF. Patient Education: Body/Joint mechanics, Home Exercise Program, Home Safety Patient demonstrates compliance with HEP?: Yes Short Term Goals Goal #1: Left LE strength 4/5 throughout. Goal to be met by: 08/21/16 Progress towards Goal:: Progressing Goal #2: Right hip strength 4+/5. Goal to be met by: 08/21/16 Progress towards Goal:: Progressing Goal #3: Bilateral SLR to 45 degrees. Goal to be met by: 08/21/16 Progress towards Goal:: Progressing Goal #4: Pt to transfer sit to stand consistently using good safety with supervision Goal to be met by: 08/14/16 Progress towards Goal:: Progressing Child Support Officer Goals Goal #1: Pt knows HEP and to continue ex's to maintain level of function at D/C. Goal to be met by: 09/19/16 Goal #2: Pt to amb. independently w/ SC community distances and min. gt deviations. Goal to be met by: 09/19/16 Progress towards goal: Progressing Goal #3: Pt able to perform all selfcare and ADL's with minimal difficulty. Goal to be met by: 09/19/16 Progress towards goal: Progressing Goal #4: Score on Tinetti Assessment improved to . Goal to be met by: 09/19/16 Plan PLAN OF CARE EXPIRES ON:: 09/19/16 ORDER # VISITS AND/OR THROUGH DATE: 09/19/16 PLAN: Continue Plan of Care
--- NOTE | 2016-08-17 16:03 | RS.OTDNOTE ---
Subjective Date of Note: 08/17/16 Visit #: 9 Date of Evaluation: 07/30/16 Payer Source: MEDICARE Date of Onset/Injury/Change in Status: 05/20/16 Surgery Performed?: No Treatment Diagnosis: Generalized Weakness Treatment Side (optional): N/A *Precautions: avoiding shoulder extension past neutral. Prior Level of Function.....Patient was independent with: ADL's, Self Care, Work /Vocation, Caregiving, Ambulation/Mobility, Community Integration/Access History of Condition/Mechanism of Injury: Pt has increased weakness and had been sick for 3 weeks when his took him to the ER. Pt had a CAT Scan and was flown to [facility] with a brain bleed. Pt then was found to have an infection in his blood. Level of Function: Pt requires assist for shower transfers, is very week. Pt uses a RW in the home and straight cane with CGA in the community. Pt has difficulty lifting and carrying items, difficulty dressing himself but he does this with extra time. Pt has difficulty staying on task and fine motor tasks of buttoning buttons. Functional Limitations: Self Care, ADL's, Reaching, Pushing, Pulling, Lifting, Carrying, Standing, Bending, Squatting, Ambulation, Community Access/Integration Current Complaints/Gains: Pt continues stating he is feeling better. States he returns to Dr Leroy on and is hoping to return to cardiac therapy. Pain Assessment - Pain Description Pain Description: Tightness, Dull Pain Location: 0 Pain Description: 0 Modalities - Treatment Parameters/Method Applied: 1.5w/cm2 x10 mins Treatment Area: cervical (B) - Hot Pack/Cryotherapy Treatment: Hot Pack (x15 mins prior to TE) Interventions - Exercise/Activities Exercise/Activities/Manual Therapy: Pt tolerated PROM/gentle cervical stretching /manual therapy and ex x 3 reps/6 directions with pt and spouse ed on home stretching program and to hold x 20+ secs each direction. 1# ho bar ex of shoulder flexion and extension, 10/1. B UE restorator performed x 6 mins, 0 rests required. Medium strength hand gripper utilized B hands along with ISO ex x 4 directions. Pt also performed B UE sly system x 1+ mins HOME EXERCISE PROGRAM: Gentle cervical stretching ex x 6 directions - Objective Findings Objective Findings:: (L) UE decreased shoulder AROM/increased tightness in traps - Charges Total Direct Minutes: 40 Total Treatment Time: 55 Procedures billed for this date of service:: HP US EX2 Assessment Patient Education: Education of diagnosis, Body/Joint mechanics, Home Exercise Program, Home Safety, Activity Modification, Education of Plan of Care Patient demonstrates compliance with HEP?: Yes Short Term Goals Goal #1: Pt to be independent with Home exercise program Goal to be met by: 08/13/16 Progress towards goal: Partially Met Goal #2: Pt to increase BUE strength to 4+/5 Goal to be met by: 08/13/16 Progress towards goal: Progressing Goal #3: Pt to be able to tolerate 15 minutes of activity before requiring a rest. Goal to be met by: 08/13/16 Progress towards goal: Met Goal #4: Pt to increase LUE AROM shoulder flexion to 135 Goal to be met by: 08/13/16 Progress towards goal: Met Long-Term Goals Goal #1: Pt to increase cervical rotation to the left by 50% Goal to be met by: 09/17/16 Progress towards goal: Progressing Goal #2: Pt to increase BUE strength to 5/5 Goal to be met by: 09/17/16 Progress towards goal: Progressing Goal #3: Pt to increase activity tolerance to 20 minutes with rests PRN. Goal to be met by: 09/17/16 Progress towards goal: Progressing Goal #4: Pt to increase LUE AROM to be WFL. Goal to be met by: 09/17/16 Progress towards goal: Progressing Plan PLAN OF CARE EXPIRES ON:: 09/17/16 ORDER # VISITS AND/OR THROUGH DATE: September 17, 2016 PLAN: Continue Plan of Care Frequency: 3 X week Duration: 3 weeks
== END ==
PROVIDERS: ATTEND Internal Medicine
DX: M54.30 Sciatica, unspecified side (principal); R53.1 Weakness; Z95.2 Presence of prosthetic heart valve

== ENCOUNTER 2016-09-14 13:00 | Outpatient (RCR) ==
--- NOTE | 2016-08-21 10:55 | RS.OPPTDN ---
Subjective Date of Note: 08/21/16 Visit #: 10 Date of Evaluation: 07/30/16 Payer Source: MEDICARE Treatment Diagnosis: general weakness, decline in function, gait abnormality Current Subjective/complaints:: Patient feels the therapy is helping ,motivated to improve. *Precautions: avoiding shoulder extension past neutral. Pain Assessment - Pain Description Pain Location: Discomfort right knee Pain Description: Aching Current Pain Intensity: mild right knee Interventions - Exercise/Activities/Manual Therapy Exercises/Activities: 50 mins. total ,beginning in supine,3/15 each of ankle pumps,SAQ,heelslides,with 4#,3/15 each,bridging in short ROm,SLR's,green t-band for hip abd.add in hooklying .LAQ's with 4#,3/15 Ended on leg press @30 # , progressed to 45 # 4/10 at each level of resistance. Total minutes of Exercise: 50 Manual Therapy: NA Total minutes of Manual Therapy: 0 HOME EXERCISE PROGRAM: Alt hip flexion and isometric hip flexion in supine. SLR. - Charges Total Direct Minutes: 50 Total Treatment Time: 50 Procedures billed for this date of service:: ex 3 Assessment: Patient requires less assist for sit to stand today,has improved strenght in LE's,has improved gait pattern as well.He is still at risk for fals as he has trunk sway present as he fatigues,also unsteady at times with initial standing.He is compliant to HEP. Patient Education: Education of diagnosis, Body/Joint mechanics, Home Exercise Program, Home Safety, Activity Modification, Education of Plan of Care Patient demonstrates compliance with HEP?: Yes Short Term Goals Goal #1: Left LE strength 4/5 throughout. Goal to be met by: 08/21/16 Progress towards Goal:: Progressing Goal #2: Right hip strength 4+/5. Goal to be met by: 08/21/16 Progress towards Goal:: Progressing Goal #3: Bilateral SLR to 45 degrees. Goal to be met by: 08/21/16 Progress towards Goal:: Progressing Goal #4: Pt to transfer sit to stand consistently using good safety with supervision Goal to be met by: 08/14/16 Progress towards Goal:: Progressing Speech Language Pathology Assistant Goals Goal #1: Pt knows HEP and to continue ex's to maintain level of function at D/C. Goal to be met by: 09/19/16 Goal #2: Pt to amb. independently w/ SC community distances and min. gt deviations. Goal to be met by: 09/19/16 Progress towards goal: Progressing Goal #3: Pt able to perform all selfcare and ADL's with minimal difficulty. Goal to be met by: 09/19/16 Progress towards goal: Progressing Goal #4: Score on Tinetti Assessment improved to 19/28. Goal to be met by: 09/19/16 Plan PLAN OF CARE EXPIRES ON:: 09/19/16 ORDER # VISITS AND/OR THROUGH DATE: 09/19/16 PLAN: Continue Plan of Care
--- NOTE | 2016-08-21 13:43 | RS.OTDNOTE ---
Subjective Date of Note: 08/21/16 Visit #: 10 Date of Evaluation: 07/30/16 Payer Source: MEDICARE Date of Onset/Injury/Change in Status: 05/20/16 Surgery Performed?: No Treatment Diagnosis: Generalized Weakness Treatment Side (optional): N/A *Precautions: avoiding shoulder extension past neutral. Prior Level of Function.....Patient was independent with: ADL's, Self Care, Work /Vocation, Caregiving, Ambulation/Mobility, Community Integration/Access History of Condition/Mechanism of Injury: Pt has increased weakness and had been sick for 3 weeks when his took him to the ER. Pt had a CAT Scan and was flown to [facility] with a brain bleed. Pt then was found to have an infection in his blood. Level of Function: Pt requires assist for shower transfers, is very week. Pt uses a RW in the home and straight cane with CGA in the community. Pt has difficulty lifting and carrying items, difficulty dressing himself but he does this with extra time. Pt has difficulty staying on task and fine motor tasks of buttoning buttons. Functional Limitations: Self Care, ADL's, Reaching, Pushing, Pulling, Lifting, Carrying, Standing, Bending, Squatting, Ambulation, Community Access/Integration Current Complaints/Gains: Pt states he does see good progress but it was not going as fast as he hoped. Pt and spouse states pt is helping more with chores at home and that he is dressing himself including small buttons Pain Assessment - Pain Description Pain Location: 0 Pain Description: 0 Modalities - Treatment Modality: Ultrasound Parameters/Method Applied: 1.5w/cm2 x 14 mins total Treatment Area: B cervical - Hot Pack/Cryotherapy Treatment: Hot Pack Interventions - Exercise/Activities Exercise/Activities/Manual Therapy: Pt tolerated PROM/gentle cervical stretching /manual therapy and ex x 3 reps/6 directions with pt and spouse ed on home stretching program and to hold x 20+ secs each direction. 1# ho bar ex of shoulder flexion and extension, 10/1. B UE restorator performed x 6 mins, 0 rests required. Medium strength hand gripper utilized B hands along with ISO ex x 4 directions. Pt also performed B UE sly system x 1+ mins HOME EXERCISE PROGRAM: Gentle cervical stretching ex x 6 directions - Objective Findings Objective Findings:: (L) UE decreased shoulder AROM/increased tightness in traps - Charges Total Direct Minutes: 50 Total Treatment Time: 65 Procedures billed for this date of service:: HP US EX2 Assessment Patient Education: Education of diagnosis, Body/Joint mechanics, Home Exercise Program, Home Safety, Activity Modification, Education of Plan of Care Patient demonstrates compliance with HEP?: Yes Short Term Goals Goal #1: Pt to be independent with Home exercise program Goal to be met by: 08/13/16 Progress towards goal: Partially Met Goal #2: Pt to increase BUE strength to 4+/5 Goal to be met by: 08/13/16 Progress towards goal: Progressing Goal #3: Pt to be able to tolerate 15 minutes of activity before requiring a rest. Goal to be met by: 08/13/16 Progress towards goal: Met Goal #4: Pt to increase LUE AROM shoulder flexion to 135 Goal to be met by: 08/13/16 Progress towards goal: Met Assisted Goals Goal #1: Pt to increase cervical rotation to the left by 50% Goal to be met by: 09/17/16 Progress towards goal: Progressing Goal #2: Pt to increase BUE strength to 5/5 Goal to be met by: 09/17/16 Progress towards goal: Progressing Goal #3: Pt to increase activity tolerance to 20 minutes with rests PRN. Goal to be met by: 09/17/16 Progress towards goal: Met Goal #4: Pt to increase LUE AROM to be WFL. Goal to be met by: 09/17/16 Progress towards goal: Progressing Plan PLAN OF CARE EXPIRES ON:: 09/17/16 ORDER # VISITS AND/OR THROUGH DATE: September 17, 2016 PLAN: Continue Plan of Care Frequency: 3 X week Duration: 1 week
--- NOTE | 2016-08-22 11:41 | RS.PTSUM ---
Progress Note/Summary Date of Note: 08/22/16 Date of Evaluation: 07/30/16 Number of Visits: 10 Reporting Period for this Progress Note: 07/30/16 through 08/21/16 Current Complaints/Gains: Patient states he feels therapy is helping. He is motivated to improve and be able to be more independent and hopefully return to walking in the neighborhood for exercise. Objective Measurements/Presentation: Patient able to perform sit to stand transfer with less assistance. Gait demonstrates improved step length, wider RODOLFO, and improved foot clearance. G Codes: Mobility current CK. Mobility goal CJ Source of G Code Score: Tinetti Assessment score of 05/16=57% impairment - Short Term Goals Goal #1: Left LE strength 4/5 throughout. Goal to be met by: 08/21/16 Progress towards Goal:: Progressing Goal #2: Right hip strength 4+/5. Goal to be met by: 08/21/16 Progress towards Goal:: Progressing Goal #3: Bilateral SLR to 45 degrees. Goal to be met by: 08/21/16 Progress towards Goal:: Progressing Goal #4: Pt to transfer sit to stand consistently using good safety with supervision Goal to be met by: 08/14/16 Progress towards Goal:: Progressing - Agriculture Instructor Goals Goal #1: Pt knows HEP and to continue ex's to maintain level of function at D/C. Goal to be met by: 09/19/16 Progress towards goal: Progressing Goal #2: Pt to amb. independently w/ SC community distances and min. gt deviations. Goal to be met by: 09/19/16 Progress towards goal: Progressing Goal #3: Pt able to perform all selfcare and ADL's with minimal difficulty. Goal to be met by: 09/19/16 Progress towards goal: Progressing Goal #4: Score on Tinetti Assessment improved to . Goal to be met by: 09/19/16 - Assessment Assessment of Improvement/Progress: Mr. Briscoe has shown progression with all areas of strength, mobility, and safety. He is still quite limited with transfers, ambulation, and the ability to perform ADL's. He demonstrates good potential to continue skilled therapy to reach his goals. - Plan Plan: Continue Plan of Care PLAN OF CARE EXPIRES ON:: 09/19/16 ORDER # VISITS AND/OR THROUGH DATE: 09/19/16
--- NOTE | 2016-08-22 15:54 | RS.OPPTDN ---
Addendum entered and electronically signed by LIONEL BOWLING PTA 08/22/16 15: 55: Additional Information: CORRECTION: Charges for this date are EX3. Original Note: Subjective Date of Note: 08/22/16 Visit #: 11 Date of Evaluation: 07/30/16 Payer Source: MEDICARE Treatment Diagnosis: general weakness, decline in function, gait abnormality Current Subjective/complaints:: Patient reports he feels he is getting stronger. States his walking and balance are better. *Precautions: avoiding shoulder extension past neutral. Pain Assessment - Pain Description Pain Location: Discomfort right knee Pain Description: Aching Current Pain Intensity: mild right knee Interventions - Exercise/Activities/Manual Therapy Exercises/Activities: 50mins total. 4# SAQ and alt hip flexion, 2s/10reps each. SLR 2#, 2s/10reps. Red theraband for hip abd and add in hooklying, ham curl, and ankle df, all 2s/10reps bilaterally. Isometric hip add with ball. red theraband for resistive trunk rotation. Sitting, LAQ's with 4#, and red theraband for ham curl, 2s/10reps each. Ended on leg press increased to 45#, 50reps at slow pace. Stationary bike 6 mins(not included in direct time). Total minutes of Exercise: 50mins/56mins Manual Therapy: NA HOME EXERCISE PROGRAM: Alt hip flexion and isometric hip flexion in supine. SLR. - Charges Total Direct Minutes: 50mins Total Treatment Time: 56mins Procedures billed for this date of service:: EX2 Assessment: Patient making progress with strengthening and reporting improvement with functional activities at home. Short Term Goals Goal #1: Left LE strength 4/5 throughout. Goal to be met by: 08/21/16 Progress towards Goal:: Progressing Goal #2: Right hip strength 4+/5. Goal to be met by: 08/21/16 Progress towards Goal:: Progressing Goal #3: Bilateral SLR to 45 degrees. Goal to be met by: 08/21/16 Progress towards Goal:: Progressing Goal #4: Pt to transfer sit to stand consistently using good safety with supervision Goal to be met by: 08/14/16 Progress towards Goal:: Progressing Detention Goals Goal #1: Pt knows HEP and to continue ex's to maintain level of function at D/C. Goal to be met by: 09/19/16 Progress towards goal: Progressing Goal #2: Pt to amb. independently w/ SC community distances and min. gt deviations. Goal to be met by: 09/19/16 Progress towards goal: Progressing Goal #3: Pt able to perform all selfcare and ADL's with minimal difficulty. Goal to be met by: 09/19/16 Progress towards goal: Progressing Goal #4: Score on Tinetti Assessment improved to 19/28. Goal to be met by: 09/19/16 Plan PLAN OF CARE EXPIRES ON:: 09/19/16 ORDER # VISITS AND/OR THROUGH DATE: 09/19/16 PLAN: Continue Plan of Care
--- NOTE | 2016-08-24 15:00 | RS.OTDNOTE ---
Subjective Date of Note: 08/24/16 Visit #: 12 Date of Evaluation: 07/30/16 Payer Source: MEDICARE Date of Onset/Injury/Change in Status: 05/20/16 Surgery Performed?: No Treatment Diagnosis: Generalized Weakness Treatment Side (optional): N/A *Precautions: avoiding shoulder extension past neutral. Prior Level of Function.....Patient was independent with: ADL's, Self Care, Work /Vocation, Caregiving, Ambulation/Mobility, Community Integration/Access History of Condition/Mechanism of Injury: Pt has increased weakness and had been sick for 3 weeks when his took him to the ER. Pt had a CAT Scan and was flown to [facility] with a brain bleed. Pt then was found to have an infection in his blood. Level of Function: Pt requires assist for shower transfers, is very week. Pt uses a RW in the home and straight cane with CGA in the community. Pt has difficulty lifting and carrying items, difficulty dressing himself but he does this with extra time. Pt has difficulty staying on task and fine motor tasks of buttoning buttons. Functional Limitations: Self Care, ADL's, Reaching, Pushing, Pulling, Lifting, Carrying, Standing, Bending, Squatting, Ambulation, Community Access/Integration Current Complaints/Gains: Pt and spouse continue stating increased endurance and strength for completion of ADL's/home candida. States good understanding of HEP and is agreeable to continue therapy 2xwk x 3 wks of PT/OT. Pain Assessment - Pain Description Pain Location: 0 Pain Description: 0 Modalities - Treatment Modality: Ultrasound Parameters/Method Applied: 1.5w/cm2 x 15 mins total Patient Position: Sitting - Hot Pack/Cryotherapy Treatment: Hot Pack Interventions - Exercise/Activities Exercise/Activities/Manual Therapy: Pt tolerated PROM/gentle cervical stretching /manual therapy and ex x 3 reps/6 directions with pt and spouse ed on home stretching program and to hold x 20+ secs each direction. 1# ho bar ex of shoulder flexion and extension, 10/ along with red t-band for B UE TE's. B UE restorator performed x 7 mins, 0 rests required. Medium strength hand gripper utilized B hands along with ISO ex x 4 directions. Pt also performed B UE sly system x 1+ mins HOME EXERCISE PROGRAM: Gentle cervical stretching ex x 6 directions - Objective Findings Objective Findings:: (L) UE decreased shoulder AROM/increased tightness in traps - Charges Total Direct Minutes: 40 Total Treatment Time: 55 Procedures billed for this date of service:: [facility] EX2 Assessment Patient Education: Education of diagnosis, Body/Joint mechanics, Home Exercise Program, Home Safety, Activity Modification, Education of Plan of Care Patient demonstrates compliance with HEP?: Yes Short Term Goals Goal #1: Pt to be independent with Home exercise program Goal to be met by: 08/13/16 Progress towards goal: Partially Met Goal #2: Pt to increase BUE strength to 4+/5 Goal to be met by: 08/13/16 Progress towards goal: Progressing Goal #3: Pt to be able to tolerate 15 minutes of activity before requiring a rest. Goal to be met by: 08/13/16 Progress towards goal: Met Goal #4: Pt to increase LUE AROM shoulder flexion to 135 Goal to be met by: 08/13/16 Progress towards goal: Met Detention Goals Goal #1: Pt to increase cervical rotation to the left by 50% Goal to be met by: 09/17/16 Progress towards goal: Progressing Goal #2: Pt to increase BUE strength to 5/5 Goal to be met by: 09/17/16 Progress towards goal: Progressing Goal #3: Pt to increase activity tolerance to 20 minutes with rests PRN. Goal to be met by: 09/17/16 Progress towards goal: Met Goal #4: Pt to increase LUE AROM to be WFL. Goal to be met by: 09/17/16 Progress towards goal: Progressing Plan PLAN OF CARE EXPIRES ON:: 09/17/16 ORDER # VISITS AND/OR THROUGH DATE: September 17, 2016 PLAN: Continue Plan of Care Frequency: 2 X week Duration: 4 weeks
--- NOTE | 2016-08-24 15:01 | RS.OTDNOTE ---
Subjective Date of Note: 08/22/16 Visit #: 11 Date of Evaluation: 07/30/16 Payer Source: MEDICARE Date of Onset/Injury/Change in Status: 05/20/16 Surgery Performed?: No Treatment Diagnosis: Generalized Weakness Treatment Side (optional): N/A *Precautions: avoiding shoulder extension past neutral. Prior Level of Function.....Patient was independent with: ADL's, Self Care, Work /Vocation, Caregiving, Ambulation/Mobility, Community Integration/Access History of Condition/Mechanism of Injury: Pt has increased weakness and had been sick for 3 weeks when his took him to the ER. Pt had a CAT Scan and was flown to [facility] with a brain bleed. Pt then was found to have an infection in his blood. Level of Function: Pt requires assist for shower transfers, is very week. Pt uses a RW in the home and straight cane with CGA in the community. Pt has difficulty lifting and carrying items, difficulty dressing himself but he does this with extra time. Pt has difficulty staying on task and fine motor tasks of buttoning buttons. Functional Limitations: Self Care, ADL's, Reaching, Pushing, Pulling, Lifting, Carrying, Standing, Bending, Squatting, Ambulation, Community Access/Integration Current Complaints/Gains: Pt reports MD visit with Dr Leroy went well. States he would like to continue Pain Assessment - Pain Description Pain Location: 0 Pain Description: 0 Interventions - Exercise/Activities Exercise/Activities/Manual Therapy: Pt tolerated PROM/gentle cervical stretching /manual therapy and ex x 3 reps/6 directions with pt and spouse ed on home stretching program and to hold x 20+ secs each direction. 1# ho bar ex of shoulder flexion and extension, 02/17. B UE restorator performed x 6 mins, 0 rests required. Medium strength hand gripper utilized B hands along with ISO ex x 4 directions. Pt also performed B UE sly system x 1+ mins HOME EXERCISE PROGRAM: Gentle cervical stretching ex x 6 directions - Objective Findings Objective Findings:: (L) UE decreased shoulder AROM/increased tightness in traps - Charges Total Direct Minutes: 60 Total Treatment Time: 60 Procedures billed for this date of service:: HP US EX2 Short Term Goals Goal #1: Pt to be independent with Home exercise program Goal to be met by: 08/13/16 Progress towards goal: Partially Met Goal #2: Pt to increase BUE strength to 4+/5 Goal to be met by: 08/13/16 Progress towards goal: Progressing Goal #3: Pt to be able to tolerate 15 minutes of activity before requiring a rest. Goal to be met by: 08/13/16 Progress towards goal: Met Goal #4: Pt to increase LUE AROM shoulder flexion to 135 Goal to be met by: 08/13/16 Progress towards goal: Met Intermediate Goals Goal #1: Pt to increase cervical rotation to the left by 50% Goal to be met by: 09/17/16 Progress towards goal: Progressing Goal #2: Pt to increase BUE strength to 5/5 Goal to be met by: 09/17/16 Progress towards goal: Progressing Goal #3: Pt to increase activity tolerance to 20 minutes with rests PRN. Goal to be met by: 09/17/16 Progress towards goal: Met Goal #4: Pt to increase LUE AROM to be WFL. Goal to be met by: 09/17/16 Progress towards goal: Progressing Plan PLAN OF CARE EXPIRES ON:: 09/17/16 ORDER # VISITS AND/OR THROUGH DATE: September 17, 2016 PLAN: Continue Plan of Care Frequency: 3 X week Duration: 1 week
--- NOTE | 2016-08-24 16:30 | RS.OPPTDN ---
Subjective Date of Note: 08/24/16 Visit #: 12 Date of Evaluation: 07/30/16 Payer Source: MEDICARE Treatment Diagnosis: general weakness, decline in function, gait abnormality Current Subjective/complaints:: Patient and report patient seems to be stronger and walking better at home. *Precautions: avoiding shoulder extension past neutral. Pain Assessment - Pain Description Pain Location: Discomfort right knee Pain Description: Aching Current Pain Intensity: mild right knee Interventions - Exercise/Activities/Manual Therapy Exercises/Activities: 45mins total. 4# SAQ and alt hip flexion, 2s/10reps each. SLR 2#, 2s/10reps. Red theraband for hip abd and add in hooklying, ham curl, and ankle df, all 2s/10reps bilaterally. Isometric hip add with ball. Sitting, LAQ's with 2#, and red theraband for ham curl, 2s/10reps each. Ended on leg press 45#, 50reps at slow pace. Total minutes of Exercise: 45mins Manual Therapy: NA HOME EXERCISE PROGRAM: Alt hip flexion and isometric hip flexion in supine. SLR. Red or green theraband for postural pullbacks. - Charges Total Direct Minutes: 45mins Total Treatment Time: 45mins Procedures billed for this date of service:: EX3 Assessment: Patient doing better with ambulation at home. Patient Education: Home Exercise Program Patient demonstrates compliance with HEP?: Yes Short Term Goals Goal #1: Left LE strength 4/5 throughout. Goal to be met by: 08/21/16 Progress towards Goal:: Progressing Goal #2: Right hip strength 4+/5. Goal to be met by: 08/21/16 Progress towards Goal:: Progressing Goal #3: Bilateral SLR to 45 degrees. Goal to be met by: 08/21/16 Progress towards Goal:: Progressing Goal #4: Pt to transfer sit to stand consistently using good safety with supervision Goal to be met by: 08/14/16 Progress towards Goal:: Progressing Snf Goals Goal #1: Pt knows HEP and to continue ex's to maintain level of function at D/C. Goal to be met by: 09/19/16 Progress towards goal: Progressing Goal #2: Pt to amb. independently w/ SC community distances and min. gt deviations. Goal to be met by: 09/19/16 Progress towards goal: Progressing Goal #3: Pt able to perform all selfcare and ADL's with minimal difficulty. Goal to be met by: 09/19/16 Progress towards goal: Progressing Goal #4: Score on Tinetti Assessment improved to 19/28. Goal to be met by: 09/19/16 Plan PLAN OF CARE EXPIRES ON:: 09/19/16 ORDER # VISITS AND/OR THROUGH DATE: 09/19/16 PLAN: Continue Plan of Care (Continue strengthening to increase safety and functional activity level.)
--- NOTE | 2016-08-27 14:07 | RS.OPPTDN ---
Subjective Date of Note: 08/27/16 Visit #: 13 Date of Evaluation: 07/30/16 Payer Source: MEDICARE Treatment Diagnosis: general weakness, decline in function, gait abnormality Current Subjective/complaints:: Patient and both report patient is walking better. They report he was able to go outside with help yesterday. *Precautions: avoiding shoulder extension past neutral. Pain Assessment - Pain Description Pain Location: Discomfort right knee Pain Description: Aching Current Pain Intensity: mild right knee Interventions - Exercise/Activities/Manual Therapy Exercises/Activities: 45mins total. 4# SAQ and alt hip flexion, 2s/10reps each. SLR 2#, 2s/10reps. Increased to green theraband for hip abd and add in hooklying , ham curl, and ankle df, all 2s/10reps bilaterally. Isometric hip add with ball. Sitting, LAQ's increased to 4#, and red theraband for ham curl, 2s/10reps each. Ended on leg press 45#, 50reps at slow pace. Total minutes of Exercise: 45mins Manual Therapy: NA HOME EXERCISE PROGRAM: Alt hip flexion and isometric hip flexion in supine. SLR. Red or green theraband for postural pullbacks. Green theraband for hip add and abd in hook-lying. - Charges Total Direct Minutes: 45mins Total Treatment Time: 45mins Procedures billed for this date of service:: EX3 Assessment: Patient continues to progress well and increase his functional activity level. Patient Education: Home Exercise Program Comments: Patient given green theraband for hip add and abd in hook-lying. Patient demonstrates compliance with HEP?: Yes Short Term Goals Goal #1: Left LE strength 4/5 throughout. Goal to be met by: 08/21/16 Progress towards Goal:: Progressing Goal #2: Right hip strength 4+/5. Goal to be met by: 08/21/16 Progress towards Goal:: Progressing Goal #3: Bilateral SLR to 45 degrees. Goal to be met by: 08/21/16 Progress towards Goal:: Progressing Goal #4: Pt to transfer sit to stand consistently using good safety with supervision Goal to be met by: 08/14/16 Progress towards Goal:: Progressing Mcc Goals Goal #1: Pt knows HEP and to continue ex's to maintain level of function at D/C. Goal to be met by: 09/19/16 Progress towards goal: Progressing Goal #2: Pt to amb. independently w/ SC community distances and min. gt deviations. Goal to be met by: 09/19/16 Progress towards goal: Progressing Goal #3: Pt able to perform all selfcare and ADL's with minimal difficulty. Goal to be met by: 09/19/16 Progress towards goal: Progressing Goal #4: Score on Tinetti Assessment improved to 19/28. Goal to be met by: 09/19/16 Plan PLAN OF CARE EXPIRES ON:: 09/19/16 ORDER # VISITS AND/OR THROUGH DATE: 09/19/16 PLAN: Continue Plan of Care
--- NOTE | 2016-08-27 15:43 | RS.OTDNOTE ---
Subjective Date of Note: 08/27/16 Visit #: 13 Date of Evaluation: 07/30/16 Payer Source: MEDICARE Date of Onset/Injury/Change in Status: 05/20/16 Surgery Performed?: No Treatment Diagnosis: Generalized Weakness Treatment Side (optional): N/A *Precautions: avoiding shoulder extension past neutral. Prior Level of Function.....Patient was independent with: ADL's, Self Care, Work /Vocation, Caregiving, Ambulation/Mobility, Community Integration/Access History of Condition/Mechanism of Injury: Pt has increased weakness and had been sick for 3 weeks when his took him to the ER. Pt had a CAT Scan and was flown to [facility] with a brain bleed. Pt then was found to have an infection in his blood. Level of Function: Pt requires assist for shower transfers, is very week. Pt uses a RW in the home and straight cane with CGA in the community. Pt has difficulty lifting and carrying items, difficulty dressing himself but he does this with extra time. Pt has difficulty staying on task and fine motor tasks of buttoning buttons. Functional Limitations: Self Care, ADL's, Reaching, Pushing, Pulling, Lifting, Carrying, Standing, Bending, Squatting, Ambulation, Community Access/Integration Current Complaints/Gains: Pt and spouse states pt has been busy with his garden this am and did require a nap prior to attending therapy this pm. States he does not feel he will be able to return to cardiac therapy but he and his have a walking path in his neighborhood to build up his tolerance level/ endurance. Pain Assessment - Pain Description Pain Location: 0 Pain Description: 0 Modalities - Treatment Modality: Ultrasound Parameters/Method Applied: 1.5w/cm2 x 7 mins each B cervical Patient Position: Sitting - Hot Pack/Cryotherapy Treatment: Hot Pack (x 15 mins) Interventions - Exercise/Activities Exercise/Activities/Manual Therapy: Pt tolerated PROM/gentle cervical stretching /manual therapy and ex x 3 reps/6 directions with pt and spouse ed on home stretching program and to hold x 20+ secs each direction. 1# ho bar ex of shoulder flexion and extension, 10/1. B UE restorator performed x 7 mins, 0 rests required. Medium strength hand gripper utilized B hands along with ISO ex x 4 directions. Pt also performed B UE sly system x 1+ mins HOME EXERCISE PROGRAM: Gentle cervical stretching ex x 6 directions - Objective Findings Objective Findings:: (L) UE decreased shoulder AROM/increased tightness in traps - Charges Total Direct Minutes: 45 Total Treatment Time: 60 Procedures billed for this date of service:: HP EX2 Assessment Patient Education: Education of diagnosis, Body/Joint mechanics, Home Exercise Program, Home Safety, Activity Modification, Education of Plan of Care Patient demonstrates compliance with HEP?: Yes Short Term Goals Goal #1: Pt to be independent with Home exercise program Goal to be met by: 08/13/16 Progress towards goal: Partially Met Goal #2: Pt to increase BUE strength to 4+/5 Goal to be met by: 08/13/16 Progress towards goal: Progressing Goal #3: Pt to be able to tolerate 15 minutes of activity before requiring a rest. Goal to be met by: 08/13/16 Progress towards goal: Met Goal #4: Pt to increase LUE AROM shoulder flexion to 135 Goal to be met by: 08/13/16 Progress towards goal: Met Office Clinician Goals Goal #1: Pt to increase cervical rotation to the left by 50% Goal to be met by: 09/17/16 Progress towards goal: Progressing Goal #2: Pt to increase BUE strength to 5/5 Goal to be met by: 09/17/16 Progress towards goal: Progressing Goal #3: Pt to increase activity tolerance to 20 minutes with rests PRN. Goal to be met by: 09/17/16 Progress towards goal: Met Goal #4: Pt to increase LUE AROM to be WFL. Goal to be met by: 09/17/16 Progress towards goal: Progressing Plan PLAN OF CARE EXPIRES ON:: 09/17/16 ORDER # VISITS AND/OR THROUGH DATE: September 17, 2016 PLAN: Continue Plan of Care Frequency: 2 X week Duration: 3 weeks (*new orders for 2xwk/3 wks*)
--- NOTE | 2016-08-30 14:57 | RS.OPPTDN ---
Subjective Date of Note: 08/30/16 Visit #: 14 Date of Evaluation: 07/30/16 Payer Source: MEDICARE Treatment Diagnosis: general weakness, decline in function, gait abnormality Current Subjective/complaints:: Patient enters clinic with improved trunk extension today.He feels the therapy is helping. *Precautions: avoiding shoulder extension past neutral. Pain Assessment - Pain Description Pain Location: Discomfort right knee Pain Description: Aching Current Pain Intensity: mild right knee Interventions - Exercise/Activities/Manual Therapy Exercises/Activities: 45mins total. 4# SAQ and alt hip flexion, 2s/10reps each. SLR 2#, 2s/10reps. Increased to green theraband for hip abd and add in hooklying , ham curl, and ankle df, all 2s/10reps bilaterally. Isometric hip add with ball. Sitting, LAQ's increased to 4#, and red theraband for ham curl, 2s/10reps each. Ended on leg press 45#, 50reps at slow pace,rested and then did 10 additional reps. Total minutes of Exercise: 45 Manual Therapy: NA Total minutes of Manual Therapy: 0 HOME EXERCISE PROGRAM: Alt hip flexion and isometric hip flexion in supine. SLR. Red or green theraband for postural pullbacks. Green theraband for hip add and abd in hook-lying. - Charges Total Direct Minutes: 45 Total Treatment Time: 45 Procedures billed for this date of service:: ex 3 Assessment: Patient has steadier gait ,increased trunk extensor strength noted as he stands more upright today.He is motivated to improve,attentive to recommendations,and his is supportive of him. Patient Education: Home Exercise Program, Activity Modification, Education of Plan of Care Patient demonstrates compliance with HEP?: Yes Short Term Goals Goal #1: Left LE strength 4/5 throughout. Goal to be met by: 08/21/16 Progress towards Goal:: Progressing Goal #2: Right hip strength 4+/5. Goal to be met by: 08/21/16 Progress towards Goal:: Progressing Goal #3: Bilateral SLR to 45 degrees. Goal to be met by: 08/21/16 Progress towards Goal:: Progressing Goal #4: Pt to transfer sit to stand consistently using good safety with supervision Goal to be met by: 08/14/16 Progress towards Goal:: Progressing Chcf Goals Goal #1: Pt knows HEP and to continue ex's to maintain level of function at D/C. Goal to be met by: 09/19/16 Progress towards goal: Progressing Goal #2: Pt to amb. independently w/ SC community distances and min. gt deviations. Goal to be met by: 09/19/16 Progress towards goal: Progressing Goal #3: Pt able to perform all selfcare and ADL's with minimal difficulty. Goal to be met by: 09/19/16 Progress towards goal: Progressing Goal #4: Score on Tinetti Assessment improved to 19/28. Goal to be met by: 09/19/16 Plan PLAN OF CARE EXPIRES ON:: 09/19/16 ORDER # VISITS AND/OR THROUGH DATE: 09/19/16 PLAN: Continue Plan of Care
--- NOTE | 2016-08-30 15:21 | RS.OTDNOTE ---
Subjective Date of Note: 08/30/16 Visit #: 14 Date of Evaluation: 07/30/16 Payer Source: MEDICARE Date of Onset/Injury/Change in Status: 05/20/16 Surgery Performed?: No Treatment Diagnosis: Generalized Weakness Treatment Side (optional): N/A *Precautions: avoiding shoulder extension past neutral. Prior Level of Function.....Patient was independent with: ADL's, Self Care, Work /Vocation, Caregiving, Ambulation/Mobility, Community Integration/Access History of Condition/Mechanism of Injury: Pt has increased weakness and had been sick for 3 weeks when his took him to the ER. Pt had a CAT Scan and was flown to [facility] with a brain bleed. Pt then was found to have an infection in his blood. Level of Function: Pt requires assist for shower transfers, is very week. Pt uses a RW in the home and straight cane with CGA in the community. Pt has difficulty lifting and carrying items, difficulty dressing himself but he does this with extra time. Pt has difficulty staying on task and fine motor tasks of buttoning buttons. Functional Limitations: Self Care, ADL's, Reaching, Pushing, Pulling, Lifting, Carrying, Standing, Bending, Squatting, Ambulation, Community Access/Integration Current Complaints/Gains: Pt and spouse states pt had fallen at home on Saturday. Pt states (L) UE soreness but no increase of pain with ex. Pt continues stating B UE ex's is becoming easier and he is feeling stronger. Pain Assessment - Pain Description Pain Location: 0 Pain Description: 0 Modalities - Treatment Modality: Ultrasound Parameters/Method Applied: 1.5w/cm2 x 7 mins x 2 to B shoulders/cervical Patient Position: Sitting - Hot Pack/Cryotherapy Treatment: Hot Pack (x 15 mins) Interventions - Exercise/Activities Exercise/Activities/Manual Therapy: Pt tolerated PROM/gentle cervical stretching /manual therapy and ex x 3 reps/6 directions with pt and spouse ed on home stretching program and to hold x 20+ secs each direction. 1# ho bar ex of shoulder flexion and extension, /. B UE restorator performed x 7 mins, 0 rests required. Medium strength hand gripper utilized B hands along with ISO ex x 4 directions. Pt also performed B UE sly system x 1+ mins HOME EXERCISE PROGRAM: Gentle cervical stretching ex x 6 directions - Objective Findings Objective Findings:: (L) UE decreased shoulder AROM/increased tightness in traps - Charges Total Direct Minutes: 60 Total Treatment Time: 75 Procedures billed for this date of service:: HP US EX2 MT Assessment Patient Education: Education of diagnosis, Body/Joint mechanics, Home Exercise Program, Home Safety, Activity Modification, Education of Plan of Care Patient demonstrates compliance with HEP?: Yes Short Term Goals Goal #1: Pt to be independent with Home exercise program Goal to be met by: 08/13/16 Progress towards goal: Partially Met Goal #2: Pt to increase BUE strength to 4+/5 Goal to be met by: 08/13/16 Progress towards goal: Progressing Goal #3: Pt to be able to tolerate 15 minutes of activity before requiring a rest. Goal to be met by: 08/13/16 Progress towards goal: Met Goal #4: Pt to increase LUE AROM shoulder flexion to 135 Goal to be met by: 08/13/16 Progress towards goal: Met Robotics Software Engineer Goals Goal #1: Pt to increase cervical rotation to the left by 50% Goal to be met by: 09/17/16 Progress towards goal: Progressing Goal #2: Pt to increase BUE strength to 5/5 Goal to be met by: 09/17/16 Progress towards goal: Progressing Goal #3: Pt to increase activity tolerance to 20 minutes with rests PRN. Goal to be met by: 09/17/16 Progress towards goal: Met Goal #4: Pt to increase LUE AROM to be WFL. Goal to be met by: 09/17/16 Progress towards goal: Progressing Plan PLAN OF CARE EXPIRES ON:: 09/17/16 ORDER # VISITS AND/OR THROUGH DATE: September 17, 2016 PLAN: Continue Plan of Care Frequency: 2 X week Duration: 2 weeks
--- NOTE | 2016-09-03 15:05 | RS.OTDNOTE ---
Subjective Date of Note: 09/03/16 Visit #: 15 Date of Evaluation: 07/30/16 Payer Source: MEDICARE Date of Onset/Injury/Change in Status: 05/20/16 Surgery Performed?: No Treatment Diagnosis: Generalized Weakness Treatment Side (optional): N/A *Precautions: avoiding shoulder extension past neutral. Prior Level of Function.....Patient was independent with: ADL's, Self Care, Work /Vocation, Caregiving, Ambulation/Mobility, Community Integration/Access History of Condition/Mechanism of Injury: Pt has increased weakness and had been sick for 3 weeks when his took him to the ER. Pt had a CAT Scan and was flown to [facility] with a brain bleed. Pt then was found to have an infection in his blood. Level of Function: Pt requires assist for shower transfers, is very week. Pt uses a RW in the home and straight cane with CGA in the community. Pt has difficulty lifting and carrying items, difficulty dressing himself but he does this with extra time. Pt has difficulty staying on task and fine motor tasks of buttoning buttons. Functional Limitations: Self Care, ADL's, Reaching, Pushing, Pulling, Lifting, Carrying, Standing, Bending, Squatting, Ambulation, Community Access/Integration Current Complaints/Gains: Pt states he is feeling good today. States he feels his strength is getting better but still does not believe he will return to cardiac rehab. pt and spouse states they are trying to increase walking in the neighborhood tolerance. Pain Assessment - Pain Description Pain Location: 0 Pain Description: 0 Modalities - Treatment Modality: Ultrasound Parameters/Method Applied: 1.5w/cm2 x 10 mins Treatment Area: B cervical - Hot Pack/Cryotherapy Treatment: Hot Pack (x 15 mins ) Interventions - Exercise/Activities Exercise/Activities/Manual Therapy: Pt tolerated PROM/gentle cervical stretching /manual therapy and ex x 3 reps/6 directions with pt and spouse ed on home stretching program and to hold x 20+ secs each direction. 1# ho bar ex of shoulder flexion and extension, 02/17. B UE restorator performed x 7 mins 35 secs, 0 rests required. Medium strength hand gripper utilized B hands along with ISO ex x 4 directions. Pt also performed B UE sly system x 2+ mins HOME EXERCISE PROGRAM: Gentle cervical stretching ex x 6 directions - Objective Findings Objective Findings:: (L) UE decreased shoulder AROM/increased tightness in traps - Charges Total Direct Minutes: 50 Total Treatment Time: 65 Procedures billed for this date of service:: EX2 US HP Assessment Patient Education: Education of diagnosis, Body/Joint mechanics, Home Exercise Program, Home Safety, Activity Modification, Education of Plan of Care Patient demonstrates compliance with HEP?: Yes Short Term Goals Goal #1: Pt to be independent with Home exercise program Goal to be met by: 08/13/16 Progress towards goal: Met Goal #2: Pt to increase BUE strength to 4+/5 Goal to be met by: 08/13/16 Progress towards goal: Partially Met Goal #3: Pt to be able to tolerate 15 minutes of activity before requiring a rest. Goal to be met by: 08/13/16 Progress towards goal: Met Goal #4: Pt to increase LUE AROM shoulder flexion to 135 Goal to be met by: 08/13/16 Progress towards goal: Met Single Pointed Operator Goals Goal #1: Pt to increase cervical rotation to the left by 50% Goal to be met by: 09/17/16 Progress towards goal: Progressing Goal #2: Pt to increase BUE strength to 5/5 Goal to be met by: 09/17/16 Progress towards goal: Progressing Goal #3: Pt to increase activity tolerance to 20 minutes with rests PRN. Goal to be met by: 09/17/16 Progress towards goal: Met Goal #4: Pt to increase LUE AROM to be WFL. Goal to be met by: 09/17/16 Progress towards goal: Progressing Plan PLAN OF CARE EXPIRES ON:: 09/17/16 ORDER # VISITS AND/OR THROUGH DATE: September 17, 2016 PLAN: Continue Plan of Care Frequency: 2 X week Duration: 2 weeks
--- NOTE | 2016-09-03 16:34 | RS.OPPTDN ---
Subjective Date of Note: 09/03/16 Visit #: 15 Date of Evaluation: 07/30/16 Payer Source: MEDICARE Treatment Diagnosis: general weakness, decline in function, gait abnormality Current Subjective/complaints:: Continues to report progression of strength. States he continues to walk better with no falls last few days. *Precautions: avoiding shoulder extension past neutral. Pain Assessment - Pain Description Pain Location: Discomfort right knee Pain Description: Aching Current Pain Intensity: mild right knee Interventions - Exercise/Activities/Manual Therapy Exercises/Activities: 40mins total. 4# SAQ and alt hip flexion, 2s/10reps each. . Red theraband for hip abd and add in hooklying, ham curl, and ankle df, all 2s /10reps bilaterally. Isometric hip add with ball. Sitting, LAQ's and alt hip flexion with 4#, and red theraband for ham curl, all 2s/10reps each. Ended on leg press 45#, increased to 60reps at slow pace. Walked patient to car with CGA and v.c. to take good step to avoid dragging foot. Total minutes of Exercise: 40mins Manual Therapy: NA HOME EXERCISE PROGRAM: Alt hip flexion and isometric hip flexion in supine. SLR. Red or green theraband for postural pullbacks. Green theraband for hip add and abd in hook-lying. - Charges Total Direct Minutes: 40mins Total Treatment Time: 45mins Procedures billed for this date of service:: EX3 Assessment: Patient continues to report imporvement in ambulation and general mobility in home. Patient Education: Home Exercise Program, Home Safety Patient demonstrates compliance with HEP?: Yes Short Term Goals Goal #1: Left LE strength 4/5 throughout. Goal to be met by: 08/21/16 Progress towards Goal:: Progressing Goal #2: Right hip strength 4+/5. Goal to be met by: 08/21/16 Progress towards Goal:: Progressing Goal #3: Bilateral SLR to 45 degrees. Goal to be met by: 08/21/16 Progress towards Goal:: Progressing Goal #4: Pt to transfer sit to stand consistently using good safety with supervision Goal to be met by: 08/14/16 Progress towards Goal:: Progressing Claims Supervisor Goals Goal #1: Pt knows HEP and to continue ex's to maintain level of function at D/C. Goal to be met by: 09/19/16 Progress towards goal: Progressing Goal #2: Pt to amb. independently w/ SC community distances and min. gt deviations. Goal to be met by: 09/19/16 Progress towards goal: Progressing Goal #3: Pt able to perform all selfcare and ADL's with minimal difficulty. Goal to be met by: 09/19/16 Progress towards goal: Progressing Goal #4: Score on Tinetti Assessment improved to 19/28. Goal to be met by: 09/19/16 Plan PLAN OF CARE EXPIRES ON:: 09/19/16 ORDER # VISITS AND/OR THROUGH DATE: 09/19/16 PLAN: Continue Plan of Care (Progress strengthening to improve safety and functional activitiy level.)
--- NOTE | 2016-09-06 15:21 | RS.OPPTDN ---
Subjective Date of Note: 09/06/16 Visit #: 16 Date of Evaluation: 07/30/16 Payer Source: MEDICARE Treatment Diagnosis: general weakness, decline in function, gait abnormality Current Subjective/complaints:: Patients states patient is getting stronger but she is concerned he is unable to return to walking outside. Also, he is still a little unsteady and cannot go without assist device. *Precautions: avoiding shoulder extension past neutral. Pain Assessment - Pain Description Pain Location: Discomfort right knee Pain Description: Aching Current Pain Intensity: mild right knee Interventions - Exercise/Activities/Manual Therapy Exercises/Activities: 45mins total. Increased to 5# for SAQ and alt hip flexion , 2s/10reps each. Increased to green theraband for hip abd and add in hooklying , ham curl, and ankle df, all 2s/10reps bilaterally. Isometric hip add with ball. Increased to 2# for SLR, 2s/10reps each. Sitting, LAQ's and alt hip flexion with 2#, and green theraband for ham curl, all 2s/10reps each. Leg press increased 60#, 50reps. Assisted on and off stationary bike, mod pace 5mins. Walked patient to car with CGA. Total minutes of Exercise: 45mins Manual Therapy: NA HOME EXERCISE PROGRAM: Alt hip flexion and isometric hip flexion in supine. SLR. Red or green theraband for postural pullbacks. Green theraband for hip add and abd in hook-lying. - Charges Total Direct Minutes: 45mins Total Treatment Time: 45mins Procedures billed for this date of service:: EX3 Assessment: Patient continues to need to progress strengthening for improved gait and functional activity level. Patient Education: Body/Joint mechanics, Home Exercise Program Patient demonstrates compliance with HEP?: Yes Short Term Goals Goal #1: Left LE strength 4/5 throughout. Goal to be met by: 08/21/16 Progress towards Goal:: Progressing Goal #2: Right hip strength 4+/5. Goal to be met by: 08/21/16 Progress towards Goal:: Progressing Goal #3: Bilateral SLR to 45 degrees. Goal to be met by: 08/21/16 Progress towards Goal:: Progressing Goal #4: Pt to transfer sit to stand consistently using good safety with supervision Goal to be met by: 08/14/16 Progress towards Goal:: Progressing Escalator Attendant Goals Goal #1: Pt knows HEP and to continue ex's to maintain level of function at D/C. Goal to be met by: 09/19/16 Progress towards goal: Progressing Goal #2: Pt to amb. independently w/ SC community distances and min. gt deviations. Goal to be met by: 09/19/16 Progress towards goal: Progressing Goal #3: Pt able to perform all selfcare and ADL's with minimal difficulty. Goal to be met by: 09/19/16 Progress towards goal: Progressing Goal #4: Score on Tinetti Assessment improved to 19/28. Goal to be met by: 09/19/16 Plan PLAN OF CARE EXPIRES ON:: 09/19/16 ORDER # VISITS AND/OR THROUGH DATE: 09/19/16 PLAN: Continue Plan of Care (Continue strengthening to improve gait and mobility to increase functional activity level.)
--- NOTE | 2016-09-06 15:52 | RS.OTDNOTE ---
Subjective Date of Note: 09/06/16 Visit #: 16 Date of Evaluation: 07/30/16 Payer Source: MEDICARE Date of Onset/Injury/Change in Status: 05/20/16 Surgery Performed?: No Treatment Diagnosis: Generalized Weakness Treatment Side (optional): N/A *Precautions: avoiding shoulder extension past neutral. Prior Level of Function.....Patient was independent with: ADL's, Self Care, Work /Vocation, Caregiving, Ambulation/Mobility, Community Integration/Access History of Condition/Mechanism of Injury: Pt has increased weakness and had been sick for 3 weeks when his took him to the ER. Pt had a CAT Scan and was flown to [facility] with a brain bleed. Pt then was found to have an infection in his blood. Level of Function: Pt requires assist for shower transfers, is very week. Pt uses a RW in the home and straight cane with CGA in the community. Pt has difficulty lifting and carrying items, difficulty dressing himself but he does this with extra time. Pt has difficulty staying on task and fine motor tasks of buttoning buttons. Functional Limitations: Self Care, ADL's, Reaching, Pushing, Pulling, Lifting, Carrying, Standing, Bending, Squatting, Ambulation, Community Access/Integration Current Complaints/Gains: Pt states he has been cleaning up his garden today. States he sits in a chair now but that it felt good to work outside. Pain Assessment - Pain Description Pain Location: 0 Pain Description: 0 Modalities - Treatment Modality: Ultrasound Parameters/Method Applied: 1.5w/cm2 x 7 mins to each side of paraspinals Interventions - Exercise/Activities Exercise/Activities/Manual Therapy: Pt tolerated PROM/gentle cervical stretching /manual therapy and ex x 3 reps/6 directions with pt and spouse ed on home stretching program and to hold x 20+ secs each direction. 1# ho bar ex of shoulder flexion and extension, 10/. B UE restorator performed x 8 mins, 0 rests required. Medium strength hand gripper utilized B hands along with ISO ex x 4 directions. Pt also performed B UE sly system x 2+ mins HOME EXERCISE PROGRAM: Gentle cervical stretching ex x 6 directions - Objective Findings Objective Findings:: (L) UE decreased shoulder AROM/increased tightness in traps - Charges Total Direct Minutes: 44 Total Treatment Time: 59 Procedures billed for this date of service:: EX2 US HP Assessment Patient Education: Education of diagnosis, Body/Joint mechanics, Home Exercise Program, Home Safety, Activity Modification, Education of Plan of Care Patient demonstrates compliance with HEP?: Yes Short Term Goals Goal #1: Pt to be independent with Home exercise program Goal to be met by: 08/13/16 Progress towards goal: Met Goal #2: Pt to increase BUE strength to 4+/5 Goal to be met by: 08/13/16 Progress towards goal: Partially Met Goal #3: Pt to be able to tolerate 15 minutes of activity before requiring a rest. Goal to be met by: 08/13/16 Progress towards goal: Met Goal #4: Pt to increase LUE AROM shoulder flexion to 135 Goal to be met by: 08/13/16 Progress towards goal: Met Arrt Technologist Goals Goal #1: Pt to increase cervical rotation to the left by 50% Goal to be met by: 09/17/16 Progress towards goal: Progressing Goal #2: Pt to increase BUE strength to 5/5 Goal to be met by: 09/17/16 Progress towards goal: Progressing Goal #3: Pt to increase activity tolerance to 20 minutes with rests PRN. Goal to be met by: 09/17/16 Progress towards goal: Met Goal #4: Pt to increase LUE AROM to be WFL. Goal to be met by: 09/17/16 Progress towards goal: Progressing Plan PLAN OF CARE EXPIRES ON:: 09/17/16 ORDER # VISITS AND/OR THROUGH DATE: September 17, 2016 PLAN: Continue Plan of Care Frequency: 3 X week Duration: 3 weeks
--- NOTE | 2016-09-10 15:16 | RS.OPPTDN ---
Subjective Date of Note: 09/10/16 Visit #: 17 Date of Evaluation: 07/30/16 Payer Source: MEDICARE Treatment Diagnosis: general weakness, decline in function, gait abnormality Current Subjective/complaints:: Patient reports continued improvement in strength and ability to walk short distances at home and in community. *Precautions: avoiding shoulder extension past neutral. Pain Assessment - Pain Description Pain Location: Discomfort right knee Pain Description: Aching Current Pain Intensity: mild right knee Interventions - Exercise/Activities/Manual Therapy Exercises/Activities: 42mins total. Increased to 5# for SAQ and alt hip flexion , 2s/10reps each. Increased to green theraband for hip abd and add in hooklying , ham curl, and ankle df, all 2s/10reps bilaterally. Isometric hip add with ball. 2# for SLR, 2s/10reps each. Sitting, LAQ's with 2#, 3s/10reps. Green theraband for ham curl, 2s/10reps each. Leg press 60#, 50reps. Walked patient to car with CGA. Total minutes of Exercise: 42mins Manual Therapy: NA HOME EXERCISE PROGRAM: Alt hip flexion and isometric hip flexion in supine. SLR. Red or green theraband for postural pullbacks. Green theraband for hip add and abd in hook-lying. - Charges Total Direct Minutes: 42mins Total Treatment Time: 45mins Procedures billed for this date of service:: EX3 Assessment: Patient progressing with functional mobility in home and in community. Patient Education: Home Exercise Program, Home Safety Patient demonstrates compliance with HEP?: Yes Short Term Goals Goal #1: Left LE strength 4/5 throughout. Goal to be met by: 08/21/16 Progress towards Goal:: Progressing Goal #2: Right hip strength 4+/5. Goal to be met by: 08/21/16 Progress towards Goal:: Progressing Goal #3: Bilateral SLR to 45 degrees. Goal to be met by: 08/21/16 Progress towards Goal:: Progressing Goal #4: Pt to transfer sit to stand consistently using good safety with supervision Goal to be met by: 08/14/16 Progress towards Goal:: Progressing Geriatric Psychiatrist Goals Goal #1: Pt knows HEP and to continue ex's to maintain level of function at D/C. Goal to be met by: 09/19/16 Progress towards goal: Progressing Goal #2: Pt to amb. independently w/ SC community distances and min. gt deviations. Goal to be met by: 09/19/16 Progress towards goal: Progressing Goal #3: Pt able to perform all selfcare and ADL's with minimal difficulty. Goal to be met by: 09/19/16 Progress towards goal: Progressing Goal #4: Score on Tinetti Assessment improved to 19/28. Goal to be met by: 09/19/16 Plan PLAN OF CARE EXPIRES ON:: 09/19/16 ORDER # VISITS AND/OR THROUGH DATE: 09/19/16 PLAN: Continue Plan of Care
--- NOTE | 2016-09-11 13:28 | RS.OTDNOTE ---
Subjective Date of Note: 09/10/16 Visit #: 17 Date of Evaluation: 07/30/16 Payer Source: MEDICARE Date of Onset/Injury/Change in Status: 05/20/16 Surgery Performed?: No Treatment Diagnosis: Generalized Weakness Treatment Side (optional): N/A *Precautions: avoiding shoulder extension past neutral. Prior Level of Function.....Patient was independent with: ADL's, Self Care, Work /Vocation, Caregiving, Ambulation/Mobility, Community Integration/Access History of Condition/Mechanism of Injury: Pt has increased weakness and had been sick for 3 weeks when his took him to the ER. Pt had a CAT Scan and was flown to [facility], [place] with a brain bleed. Pt then was found to have an infection in his blood. Level of Function: Pt requires assist for shower transfers, is very week. Pt uses a RW in the home and straight cane with CGA in the community. Pt has difficulty lifting and carrying items, difficulty dressing himself but he does this with extra time. Pt has difficulty staying on task and fine motor tasks of buttoning buttons. Functional Limitations: Self Care, ADL's, Reaching, Pushing, Pulling, Lifting, Carrying, Standing, Bending, Squatting, Ambulation, Community Access/Integration Current Complaints/Gains: pt continues stating he is feeling his strength is returning. States he is trying to stay more active at home. Pain Assessment - Pain Description Pain Location: 0 Pain Description: 0 Modalities - Treatment Modality: Ultrasound Parameters/Method Applied: 1.5w/cm2 x 7 mins to B scapula area/anterior shoulder Patient Position: Sitting - Hot Pack/Cryotherapy Treatment: Hot Pack (x 15 mins prior to TE) Interventions - Exercise/Activities Exercise/Activities/Manual Therapy: Pt tolerated PROM/gentle cervical stretching /manual therapy and ex x 3 reps/6 directions with pt and spouse ed on home stretching program and to hold x 20+ secs each direction. 1# ho bar ex of shoulder flexion and extension, 02/17. B UE restorator performed x 8 mins, 0 rests required. Medium strength hand gripper utilized B hands along with ISO ex x 4 directions. Pt also performed B UE sly system x 2+ mins HOME EXERCISE PROGRAM: Gentle cervical stretching ex x 6 directions - Objective Findings Objective Findings:: (L) UE decreased shoulder AROM/increased tightness in traps - Charges Total Direct Minutes: 50 Total Treatment Time: 62 Procedures billed for this date of service:: HP US EX2 Assessment Patient Education: Education of diagnosis, Body/Joint mechanics, Home Exercise Program, Home Safety, Activity Modification, Education of Plan of Care Patient demonstrates compliance with HEP?: Yes Short Term Goals Goal #1: Pt to be independent with Home exercise program Goal to be met by: 08/13/16 Progress towards goal: Met Goal #2: Pt to increase BUE strength to 4+/5 Goal to be met by: 08/13/16 Progress towards goal: Partially Met Goal #3: Pt to be able to tolerate 15 minutes of activity before requiring a rest. Goal to be met by: 08/13/16 Progress towards goal: Met Goal #4: Pt to increase LUE AROM shoulder flexion to 135 Goal to be met by: 08/13/16 Progress towards goal: Met Residential Goals Goal #1: Pt to increase cervical rotation to the left by 50% Goal to be met by: 09/17/16 Progress towards goal: Progressing Goal #2: Pt to increase BUE strength to 5/5 Goal to be met by: 09/17/16 Progress towards goal: Progressing Goal #3: Pt to increase activity tolerance to 20 minutes with rests PRN. Goal to be met by: 09/17/16 Progress towards goal: Met Goal #4: Pt to increase LUE AROM to be WFL. Goal to be met by: 09/17/16 Progress towards goal: Progressing Plan PLAN OF CARE EXPIRES ON:: 09/17/16 ORDER # VISITS AND/OR THROUGH DATE: September 17, 2016 PLAN: Plan for Discharge Frequency: 1 X week Duration: 1 week (Plan for DC-I with HEP)
--- NOTE | 2016-09-14 14:54 | RS.OTDNOTE ---
Subjective Date of Note: 09/14/16 Visit #: 18 Date of Evaluation: 07/30/16 Payer Source: MEDICARE Date of Onset/Injury/Change in Status: 05/20/16 Surgery Performed?: No Treatment Diagnosis: Generalized Weakness Treatment Side (optional): N/A *Precautions: avoiding shoulder extension past neutral. Prior Level of Function.....Patient was independent with: ADL's, Self Care, Work /Vocation, Caregiving, Ambulation/Mobility, Community Integration/Access History of Condition/Mechanism of Injury: Pt has increased weakness and had been sick for 3 weeks when his took him to the ER. Pt had a CAT Scan and was flown to [facility] with a brain bleed. Pt then was found to have an infection in his blood. Level of Function: Pt requires assist for shower transfers, is very week. Pt uses a RW in the home and straight cane with CGA in the community. Pt has difficulty lifting and carrying items, difficulty dressing himself but he does this with extra time. Pt has difficulty staying on task and fine motor tasks of buttoning buttons. Functional Limitations: Self Care, ADL's, Reaching, Pushing, Pulling, Lifting, Carrying, Standing, Bending, Squatting, Ambulation, Community Access/Integration Current Complaints/Gains: Pt states he is pleased with his progress. States he is again working in his garden and he feels able to do more around the house. States I with all drsg and self care tasks. Pain Assessment - Pain Description Pain Location: 0 Pain Description: 0 Modalities - Hot Pack/Cryotherapy Treatment: Hot Pack (x 15 mins to cervical) Interventions - Exercise/Activities Exercise/Activities/Manual Therapy: Pt tolerated PROM/gentle cervical stretching /manual therapy and ex x 3 reps/6 directions with pt and spouse ed on home stretching program and to hold x 20+ secs each direction. 1# ho bar ex of shoulder flexion and extension, 10/1. B UE restorator performed x 8 mins, 0 rests required. Medium strength hand gripper utilized B hands along with ISO ex x 4 directions. Pt also performed B UE sly system x 2+ mins HOME EXERCISE PROGRAM: Gentle cervical stretching ex x 6 directions - Objective Findings Objective Findings:: (L) UE decreased shoulder AROM/increased tightness in traps - Charges Total Direct Minutes: 50 Total Treatment Time: 50 Procedures billed for this date of service:: HP EX2 Assessment Patient Education: Education of diagnosis, Body/Joint mechanics, Home Exercise Program, Home Safety, Activity Modification, Education of Plan of Care Patient demonstrates compliance with HEP?: Yes Short Term Goals Goal #1: Pt to be independent with Home exercise program Goal to be met by: 08/13/16 Progress towards goal: Met Goal #2: Pt to increase BUE strength to 4+/5 Goal to be met by: 08/13/16 Progress towards goal: Partially Met Goal #3: Pt to be able to tolerate 15 minutes of activity before requiring a rest. Goal to be met by: 08/13/16 Progress towards goal: Met Goal #4: Pt to increase LUE AROM shoulder flexion to 135 Goal to be met by: 08/13/16 Progress towards goal: Met Assisted Goals Goal #1: Pt to increase cervical rotation to the left by 50% Goal to be met by: 09/17/16 Progress towards goal: Not Met Goal #2: Pt to increase BUE strength to 5/5 Goal to be met by: 09/17/16 Progress towards goal: Not Met Goal #3: Pt to increase activity tolerance to 20 minutes with rests PRN. Goal to be met by: 09/17/16 Progress towards goal: Met Goal #4: Pt to increase LUE AROM to be WFL. Goal to be met by: 09/17/16 Progress towards goal: Partially Met Comments: A/AROM Plan PLAN OF CARE EXPIRES ON:: 09/17/16 ORDER # VISITS AND/OR THROUGH DATE: September 17, 2016 PLAN: Plan for Discharge Frequency: DC Duration: DC
--- NOTE | 2016-09-14 15:19 | RS.OPPTDN ---
Subjective Date of Note: 09/14/16 Visit #: 18 Date of Evaluation: 07/30/16 Payer Source: MEDICARE Treatment Diagnosis: general weakness, decline in function, gait abnormality Current Subjective/complaints:: Patient and both report improvement in patients ambulation in home and some short distances in yard and garden. He states he would like to get away from using cane, but continues with it at this time for safey in community. States he walks short distances independently around the house. *Precautions: avoiding shoulder extension past neutral. Pain Assessment - Pain Description Pain Location: Discomfort right knee Pain Description: Aching Current Pain Intensity: mild right knee Interventions - Exercise/Activities/Manual Therapy Exercises/Activities: 40mins total. 4# SAQ and alt hip flexion, 2s/10reps each. Green theraband for hip abd and add in hooklying, ham curl, and ankle df, all 2s /10reps bilaterally. Isometric hip add with ball. 2# for SLR, 2s/10reps each. Sitting, LAQ's with 2#, 3s/10reps. Green theraband for ham curl, 2s/10reps each. Leg press 60#, 50reps. Reviewed safety with ambulation and transfers. Discussed current HEP and progress following discharge. Walked patient to car with SBA. Total minutes of Exercise: 40mins Manual Therapy: NA HOME EXERCISE PROGRAM: Alt hip flexion and isometric hip flexion in supine. SLR. Red or green theraband for postural pullbacks. Green theraband for hip add and abd in hook-lying. - Objective Findings Observations,measurements,etc.: Patient progressed score on Tinetti Assessment to 16/28 or 42.9% deficit (was 9/28 or 68% on Eval) - Charges Total Direct Minutes: 40mins Total Treatment Time: 45mins Procedures billed for this date of service:: EX3 Assessment: Patient has progressed well with strengthening, gait, and balance. He will benefit from continuing HEP following discharge. Patient Education: Home Exercise Program, Home Safety, Activity Modification, Education of Plan of Care Patient demonstrates compliance with HEP?: Yes Short Term Goals Goal #1: Left LE strength 4/5 throughout. Goal to be met by: 08/21/16 Progress towards Goal:: Met Goal #2: Right hip strength 4+/5. Goal to be met by: 08/21/16 Progress towards Goal:: Met Goal #3: Bilateral SLR to 45 degrees. Goal to be met by: 08/21/16 Progress towards Goal:: Met Goal #4: Pt to transfer sit to stand consistently using good safety with supervision Goal to be met by: 08/14/16 Progress towards Goal:: Met Microbiology Teacher Goals Goal #1: Pt knows HEP and to continue ex's to maintain level of function at D/C. Goal to be met by: 09/19/16 Progress towards goal: Met Goal #2: Pt to amb. independently w/ SC community distances and min. gt deviations. Goal to be met by: 09/19/16 Progress towards goal: Met Goal #3: Pt able to perform all selfcare and ADL's with minimal difficulty. Goal to be met by: 09/19/16 Progress towards goal: Progressing Goal #4: Score on Tinetti Assessment improved to 19/28. Goal to be met by: 09/19/16 Progress towards goal: Met Plan PLAN OF CARE EXPIRES ON:: 09/19/16 ORDER # VISITS AND/OR THROUGH DATE: 09/19/16 PLAN: Plan for Discharge (Discharge with HEP.)
--- NOTE | 2016-10-30 14:19 | RS.OPPTDC ---
Date of Discharge: 09/14/16 Date of Evaluation: 07/30/16 Number of Visits: 18 Treatment Diagnosis: general weakness, decline in function, gait abnormality Current Complaints/Gains: Patient and his report increased safety with ambulation. He reports increased mobility around the home and is able to perform a limited amount of mobility in the yard/garden. States he still uses a straight cane for safety for community ambulation, but walks without assistive device independently inside the home. Pain Assessment - Pain Description Pain Description: Aching Functional Outcome Measure Tinetti: 16 (16/28=42.9%) - G Codes & Severity Modifier G Codes & Modifier: Mobility goal CJ. Mobility D/C CK Source of G Code score: Tinetti Assessment Interventions - Exercise/Activities/Manual Therapy Exercises/Activities: NA Manual Therapy: NA HOME EXERCISE PROGRAM: Alt hip flexion and isometric hip flexion in supine. SLR. Red or green theraband for postural pullbacks. Green theraband for hip add and abd in hook-lying. - Charges Total Direct Minutes: NA Total Treatment Time: NA Procedures billed for this date of service:: NA Assessment Assessment: Patient has progressed well, meeting most of his goals. He demonstrates increased strength and safety with ambulation. He and his report increased mobility inside and outside the home. Short Term Goals Goal #1: Left LE strength 4/5 throughout. Goal to be met by: 08/21/16 Progress towards Goal:: Met Goal #2: Right hip strength 4+/5. Goal to be met by: 08/21/16 Progress towards Goal:: Met Goal #3: Bilateral SLR to 45 degrees. Goal to be met by: 08/21/16 Progress towards Goal:: Met Goal #4: Pt to transfer sit to stand consistently using good safety with supervision Goal to be met by: 08/14/16 Progress towards Goal:: Met Custodial Goals Goal #1: Pt knows HEP and to continue ex's to maintain level of function at D/C. Goal to be met by: 09/19/16 Progress towards goal: Met Goal #2: Pt to amb. independently w/ SC community distances and min. gt deviations. Goal to be met by: 09/19/16 Progress towards goal: Met Goal #3: Pt able to perform all selfcare and ADL's with minimal difficulty. Goal to be met by: 09/19/16 Progress towards goal: Partially Met Goal #4: Score on Tinetti Assessment improved to 19/28. Goal to be met by: 09/19/16 Progress towards goal: Met Plan Reason for Discharge:: Maximum Potential Met
== END 2016-09-16 ==
PROVIDERS: ATTEND Internal Medicine
DX: R53.1 Weakness (principal)

== ENCOUNTER 2017-12-05 06:32 | Outpatient (CLI) | payer OTHER | END 2017-12-05 06:33 | disposition home or self-care (01) | LOC: CAR 06:32 | PROVIDERS: ATTEND Internal Medicine | DX: R06.02 Shortness of breath (principal); T82.6XXA Infection and inflammatory reaction due to cardiac valve prosthesis, initial encounter ==

== ENCOUNTER 2021-02-13 13:23 | Inpatient (IN) ==
--- NOTE | 2021-02-13 14:44 | ED.PDOC ---
General ED Provider: Dr. JORDAN TOSCANO MD Chief Complaint: Syncope Stated Complaint: syncope Time Seen by Provider: 02/13/21 14:32 Mode of Arrival: Ambulance Information Source: Patient Primary Care Provider: MILKA LEROY Nursing and Triage Documentation Reviewed and Agree: Yes Does patient meet sepsis criteria?: No System Inflammatory Response Syndrome: Temp 96.8F or Lower Sepsis Protocol: For patient's 13 years and over: Temp is 96.8 and below OR 101 and greater Pulse >90 BPM Resp >20/minute Acutely Altered Mental Status Are patient's symptoms suggestive of a new infection, such as: -Pneumonia -Skin, Soft Tissue -Endocarditis -UTI -Bone, Joint Infection -Implantable Device -Acute Abdominal Infection -Wound Infection -Meningitis -Blood Stream Catheter Infection -Unknown Cardiovascular Complaint Exam Palpitations Complaint/Exam Onset/Duration: yesterday ~1000 Symptoms Are: Still present Timing: Intermittent Initial Severity: Moderate Current Severity: Moderate Character: Reports Skipped beats Aggravating: Reports None Alleviating: Reports None Associated Signs and Symptoms: Reports Lightheadedness, Dizziness, Syncope, Shortness of breath, Diaphoresis, Nausea and Vomiting Related Surgical History: Reports Valve Replacement (aortic x 2 (1999, 2015)); Denies Pacemaker Cardiac Risk Factors: Reports Hypertension, Smoking (42 years remote), Elevated lipids and Family history (father, CT x 2); Denies Diabetes, CHF, Prior CT or CAD Pulmonary Embolism Risk Factors: Denies OCs/Estrogen, , Malignancy, Recent travel, Bedrest, Recent surgery, Recent trauma, DVT, Previous PE or Smoking Atrial Fibrillation Risk Factors: Reports Hypertension; Denies CAD, Mitral Valve Disease, COPD, Pulmonary Embolism, Hypothyroidism, Alcohol abuse or WPW Syndrome Thyroid Exam: Normal Differential Diagnoses: AV Block and Cardiomyopathy Review of Systems Review Of Systems Constitutional: Reports Diaphoresis and Weakness Cardiac: Reports Irregular heart rate, Lightheadedness, Palpitations and Syncope All Other Systems: Reviewed and Negative [facility] Medical History (Updated 02/14/21 @ 08:17 by SILVIA PEREZ) Acute arthritis Afib Aortic valve disorders Arthritis Benign prostate hyperplasia Dyslipidemia Heart disease HTN (hypertension) Melanoma Seasonal allergies Syncope Family History (Updated 02/13/21 @ 18:00 by MEGHANN SERRATO RN) FATHER Heart attack Prostate cancer Social History Smoking and tobacco status: Former smoker Surgical History (Updated 02/14/21 @ 08:17 by SILVIA PEREZ) History of joint surgery S/P TAVR (transcatheter aortic valve replacement) Status post hernia repair Status post tonsillectomy Status post tonsillectomy and adenoidectomy Physical Exam Physical Exam Appearance: Reports Ill-appearing and Well-nourished Ill-appearing: Moderate Pain Distress: Not Applicable Eyes: Reports MADELEINE, EOMI and Conjunctiva clear ENT: Reports Nose normal Neck: Nonsupple (age-appropriate) Respiratory: Reports Airway patent, Breath sounds clear and Breath sounds equal Cardiovascular: Reports Irregular rhythm and Bradycardia GI/: Reports Soft, Nontender and Bowel sounds normal Musculoskeletal: Reports Limited strength Skin: Reports Warm and Normal color Neurological: Reports Sensation intact, Motor intact and Cranial nerves intact Psychiatric: Reports Affect appropriate and Mood appropriate Critical Care Note Critical Care Note Total Critical Care Time (mins): 0 Course Course Hematology/Chemistry: 02/14/21 02:20 02/14/21 02:20 Orders, Labs, Meds: Lab Review 02/13/21 02/13/21 14:59 14:59 WBC 10.77 H RBC 4.45 L Hgb 13.8 L Hct 42.8 MCV 96.2 H MCH 31.0 MCHC 32.2 RDW Coeff of Gene 13.9 Plt Count 133 L Immature Gran % (Auto) 0.6 Neut % (Auto) 85.4 H Lymph % (Auto) 7.2 L Gilchrist % (Auto) 4.9 Eos % (Auto) 1.2 Baso % (Auto) 0.7 Neut # (Auto) 9.2 H Lymph # (Auto) 0.8 Gilchrist # (Auto) 0.5 Eos # (Auto) 0.1 Baso # (Auto) 0.1 Immature Gran # (Auto) 0.1 Sodium 138.6 Potassium 4.84 Chloride 105.8 Carbon Dioxide 27.5 Anion Gap 10.14 BUN 29.6 H Creatinine 1.13 H Estimated GFR (MDRD) 61.00 BUN/Creatinine Ratio 26.19 Glucose 116.6 H Calcium 9.40 Magnesium 2.31 H Total Bilirubin 1.76 H AST 44.7 ALT 33.3 Alkaline Phosphatase 48.2 L Total Creatine Kinase 55.8 Troponin I < 0.012 NT-Pro-B Natriuret Pep 2970.000 H Total Protein 6.56 Albumin 4.33 Globulin 2.23 Albumin/Globulin Ratio 1.94 TSH 3.260 Orders Category Date Time Status EKG-(ED ONLY) Stat CARDIO 02/13/21 14:40 Completed ED IV/MEDIPORT/POWERPORT .ONCE EMERGENCY 02/13/21 14:44 Active CBC W/ AUTO DIFF Stat LAB 02/13/21 14:59 Completed COMPREHENSIVE METABOLIC PANEL Stat LAB 02/13/21 14:59 Completed CREATINE KINASE Stat LAB 02/13/21 14:59 Completed MAGNESIUM Stat LAB 02/13/21 14:59 Completed NT-PROBNP Stat LAB 02/13/21 14:59 Completed THYROID STIMULATING HORMONE Stat LAB 02/13/21 14:59 Completed TROPONIN I Stat LAB 02/13/21 14:59 Completed 0.9 % Sodium Chloride [Saline Flush] MEDS 02/13/21 14:44 Active 1 syr IVF PRN PRN Furosemide [Lasix] MEDS 02/13/21 16:00 Discontinued 20 mg IVP ONCE ONE Sodium Chloride 0.9% [Sodium Chloride] 1,000 ml MEDS 02/13/21 15:30 Discontinued IV BOLUS CHEST, 1V AP ONLY Stat RADS 02/13/21 14:44 Completed Medications Generic Name Dose Route Start Last Admin Trade Name Freq PRN Reason Stop Dose Admin Acetaminophen 650 mg 02/13/21 18:15 Acetaminophen 325 Mg Tablet PO Q4H PRN Headache Apixaban 2.5 mg 02/13/21 21:00 02/13/21 20:26 Apixaban 5 Mg Tab PO 2.5 mg BID DAT Administration Atorvastatin Calcium 10 mg 02/14/21 09:00 Atorvastatin Calcium 10 Mg Tablet PO DAILY DAT Atropine Sulfate 0.5 mg 02/13/21 18:15 Atropine Sulfate Inj 1 Mg/10 Ml Disp.Syrin IVP ONCE PRN Symptomatic Bradycardia Brimonidine Tartrate 1 drop 02/13/21 21:00 02/13/21 20:46 Brimonidine Tartrate 0.2% 5 Ml Btl EACHEYE 1 drop Q12HR DAT Administration Calcium/Vitamin D 1 each 02/13/21 21:00 02/13/21 20:27 Calcium Carbonate/Vitamin D3 500 Mg/5 Mcg(200iu) 1 Each Tablet PO 1 each BID DAT Administration Docusate Sodium 100 mg 02/13/21 21:00 02/13/21 20:26 Docusate Sodium 100 Mg Capsule PO 100 mg BID DAT Administration Losartan Potassium 25 mg 02/14/21 09:00 Losartan Potassium 25 Mg Tablet PO DAILY DAT Multivitamins 1 tab 02/14/21 09:00 Multivitamin 1 Tab PO DAILY DAT Nitroglycerin 0.4 mg 02/13/21 18:15 Nitroglycerin 0.4 Mg Tab.Subl SL Q5MIN X 3 DOSES PRN Chest Pain Non-Formulary Medication 1 drop 02/13/21 21:00 Dorzolamide EACHEYE BID DAT Sennosides 8.6 mg 02/13/21 21:00 02/13/21 21:09 Sennosides 8.6 Mg Tablet PO 8.6 mg BID DAT Administration Sertraline HCl 25 mg 02/13/21 21:00 02/13/21 20:26 Sertraline Hcl 50 Mg Tablet PO 25 mg BEDTIME DAT Administration Sodium Chloride 1 syr 02/13/21 14:44 02/13/21 16:44 0.9% Sodium Chloride 10 Ml Disp.Syrin IVF 1 syr PRN PRN Administration To flush IV Sodium Chloride 1 syr 02/13/21 21:00 02/14/21 05:07 0.9% Sodium Chloride 10 Ml Disp.Syrin IVF 1 syr Q8HR DAT Administration Tamsulosin HCl 0.4 mg 02/14/21 09:00 Tamsulosin Hcl 0.4 Mg Cap.Er.24h PO DAILY DAT Travoprost 1 drop 02/13/21 21:00 02/13/21 20:47 Travoprost 2.5 Ml Opth Yumiko EACHEYE 1 drop BEDTIME DAT Administration Discontinued Medications Generic Name Dose Route Start Last Admin Trade Name Freq PRN Reason Stop Dose Admin Atorvastatin Calcium 10 mg 02/14/21 09:00 Atorvastatin Calcium 20 Mg Tablet PO DAILY DAT Furosemide 20 mg 02/13/21 16:00 02/13/21 16:44 Furosemide Inj 20 Mg/2 Ml Vial IVP 02/13/21 16:01 20 mg ONCE ONE Administration Sodium Chloride 1,000 mls @ 750 mls/hr 02/13/21 15:30 02/13/21 16:07 Sodium Chloride IV 02/13/21 16:49 750 mls/hr BOLUS STA Administration Patient was seen by his PCP earlier today. A cardiac arrhythmia was noted on ECG which requires further evaluation, however, only a single beat was captured and recorded. Dr Leroy had intended to admit the patient on telemetry, allowing him to more completely characterize the abnormality and transfer to Cardiology. When they were getting ready to come in the patient had a syncopal episode. They called the PCP. He said to go to the ED. If a longer series was recorded, we were to send him to [facility]. If not, he could be admitted once fully stable. A cardiac w/u was performed. Labs posted, significant for moderate ZOHRA/dehydration and elevated BNP. He was given IVF initially to address the ZOHRA, and when the BNP posted he was given a bit of Lasix. I spoke with Dr Leroy, who said to admit. The patient's family has the orders. I am to confirm the Metoprolol has been d/c'd, that he will have routine telemetry, and that a carotid US is ordered for the AM. If any are missing, they will be ordered through the ED. Other than that, the patient is ready for admission. Patient was stable when transported from the ED to the medical floor. Vital Signs: Temp Pulse Resp BP Pulse Ox 02/13/21 13:24 96.5 F L 68 15 201/102 H 97 SEPIDEH Risk Score SEPIDEH Risk Score: Risk Score Odds of by 30D 0 0.1 (0.1-0.2) 1 0.3 (0.2-0.3) 2 0.4 (0.3-0.5) 3 0.7 (0.6-0.9) 4 1.2 (1.0-1.5) 5 2.2 (1.9-2.6) 6 3.0 (2.5-3.6) 7 4.8 (3.8-6.1) Discharge Plan Discharge Patient Disposition: ADMITTED INPATIENT Discharge Problem: Acute renal insufficiency, Acute dehydration Cardiac arrhythmia, unspecified Qualifiers: Arrhythmia type: unspecified cardiac arrhythmia Qualified Code(s): I49.9 - Cardiac arrhythmia, unspecified Syncope Qualifiers: Syncope type: unspecified Qualified Code(s): R55 - Syncope and collapse Acute exacerbation of congestive heart failure Qualifiers: Heart failure type: systolic Qualified Code(s): I50.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
[2021-02-13 15:05] LABS: BASOPHILS # (AUTO) 0.1 K/uL (0-0.2); BASOPHILS % (AUTO) 0.7 % (0.0-3.0); EOSINOPHILS # (AUTO) 0.1 K/ul (0.0-0.7); EOSINOPHILS % (AUTO) 1.2 % (0.0-7.0); HEMATOCRIT 42.8 % (42.0-52.0); HEMOGLOBIN 13.8 g/dl (14.0-18.0); IMMATURE GRANULOCYTE # (AUTO) 0.1 (0.0-1.0); IMMATURE GRANULOCYTE % (AUTO) 0.6 % (0.0-5.0); LYMPHOCYTES # (AUTO) 0.8 K/uL (0.60-3.4); LYMPHOCYTES % (AUTO) 7.2 (10.0-50.0); MEAN CORPUSCULAR HGB CONC 32.2 (31.8-35.4); MEAN CORPUSCULAR VOLUME 96.2 fl (80.0-94.0); MONOCYTES # (AUTO) 0.5 K/uL (0.4-2.0); MONOCYTES % (AUTO) 4.9 (0-10); NEUTROPHILS # (AUTO) 9.2 K/ul (2.0-6.9); NEUTROPHILS % (AUTO) 85.4 % (42.2-75.2); PLATELET COUNT 133 10^3/uL (140-440); RDW COEFFICIENT OF VARIATION 13.9 % (11.6-14.8); RED BLOOD COUNT 4.45 10^6/ul (4.70-6.10); WHITE BLOOD COUNT 10.77 K/ul (4.2-10.2)
[2021-02-13 15:17] LABS: ALANINE AMINOTRANSFERASE 33.3 U/L (0-50); ALBUMIN 4.33 g/dL (3.5-5.0); ALKALINE PHOSPHATASE 48.2 U/L (56-119); ASPARTATE AMINO TRANSFERASE 44.7 U/L (17-59); BILIRUBIN,TOTAL 1.76 mg/dL (0.2-1.3); BLOOD UREA NITROGEN 29.6 mg/dL (9-20); CARBON DIOXIDE 27.5 mmol/L (22-30.0); CHLORIDE 105.8 mmol/L (98-107); CREATINE KINASE 55.8 U/L (55-170); CREATININE 1.13 mg/dL (0.60-1.10); GLUCOSE 116.6 mg/dL (74-106); MAGNESIUM 2.31 mg/dL (1.6-2.3); POTASSIUM 4.84 mmol/L (3.5-5.1); SODIUM 138.6 mmol/L (134.5-145); TOTAL PROTEIN 6.56 g/dL (6.3-8.2)
--- NOTE | 2021-02-13 15:20 | DI ---
EXAM: CHEST FRONTAL VIEW HISTORY: Arrhythmia COMPARISON: 02/17/2015 FINDINGS: Mild cardiomegaly, sternotomy wires and atherosclerotic disease are again noted and stable. There is no vascular congestion or acute infiltrate. No consolidation, pneumothorax or pleural flu id. Left shoulder prosthesis is again noted. IMPRESSION: 1. Cardiomegaly and atherosclerotic disease. No vascular congestion or acute infiltrate.
[2021-02-13] MEDS ORDERED: SODIUM CHLORIDE 1,000 ML IV STA (15:30)
[2021-02-13 15:38] LABS: TROPONIN I < 0.012 ng/ml (0.0000-0.120)
[2021-02-13] MEDS ORDERED: LASIX IVP ONE (16:00)
[2021-02-13 17:54] VITALS: BMI 24.9
[2021-02-13] MEDS ORDERED: ATROPINE SULFATE PFS IVP PRN (18:15)
[2021-02-13] MEDS ORDERED: NITROSTAT SL PRN (18:15)
[2021-02-13] MEDS ORDERED: TYLENOL PO PRN (18:15)
[2021-02-13 18:30] LABS: BILIRUBIN,URINE Negative (NEGATIVE); CLARITY,URINE Clear (CLEAR); COLOR,URINE Yellow (YELLOW); GLUCOSE, URINE (UA) Negative (NEGATIVE); KETONES,URINE Negative (NEGATIVE); LEUKOCYTE ESTERASE ,URINE Negative (NEGATIVE); NITRITE,URINE Negative (NEGATIVE); PH,URINE 6.5 (5-9); PROTEIN,URINE Negative (NEGATIVE); URINE, BLOOD 1+ (NEGATIVE); UROBILINOGEN,URINE 0.2 (0.2)
[2021-02-13 18:37] LABS: BASOPHILS # (AUTO) 0.1 K/uL (0-0.2); BASOPHILS % (AUTO) 0.6 % (0.0-3.0); EOSINOPHILS % (AUTO) 0.4 % (0.0-7.0); HEMATOCRIT 46.6 % (42.0-52.0); HEMOGLOBIN 15.3 g/dl (14.0-18.0); IMMATURE GRANULOCYTE # (AUTO) 0.1 (0.0-1.0); IMMATURE GRANULOCYTE % (AUTO) 0.7 % (0.0-5.0); MEAN CORPUSCULAR HEMOGLOBIN 31.5 pg (27.0-31.0); MEAN CORPUSCULAR HGB CONC 32.8 (31.8-35.4); MEAN CORPUSCULAR VOLUME 96.1 fl (80.0-94.0); MONOCYTES # (AUTO) 0.4 K/uL (0.4-2.0); MONOCYTES % (AUTO) 3.6 (0-10); NEUTROPHILS # (AUTO) 9.2 K/ul (2.0-6.9); NEUTROPHILS % (AUTO) 85.7 % (42.2-75.2); PLATELET COUNT 149 10^3/uL (140-440); RED BLOOD COUNT 4.85 10^6/ul (4.70-6.10); WHITE BLOOD COUNT 10.67 K/ul (4.2-10.2)
[2021-02-13 18:39] LABS: SQUAMOUS EPITHELIAL CELL,UR NOT PRESENT (0-5); URINE WBC, MICROSCOPIC 0-2 (0-2)
[2021-02-13 18:51] LABS: ALANINE AMINOTRANSFERASE 38.3 U/L (0-50); ALBUMIN 4.93 g/dL (3.5-5.0); ALKALINE PHOSPHATASE 58.2 U/L (56-119); ASPARTATE AMINO TRANSFERASE 47.9 U/L (17-59); BILIRUBIN,TOTAL 1.98 mg/dL (0.2-1.3); CALCIUM 9.6 mg/dL (8.4-10.2); CARBON DIOXIDE 25.8 mmol/L (22-30.0); CHLORIDE 104.9 mmol/L (98-107); CREATININE 1.14 mg/dL (0.60-1.10); GLUCOSE 140.8 mg/dL (74-106); POTASSIUM 4.11 mmol/L (3.5-5.1); TOTAL PROTEIN 7.64 g/dL (6.3-8.2)
[2021-02-13 19:02] LABS: TROPONIN I 0.014 ng/ml (0.0000-0.120)
[2021-02-13 19:21] LABS: THYROID STIMULATING HORMONE 2.81 uIU/L (0.465-4.68)
[2021-02-13] MEDS: ZOLOFT PO SCH (20:26)
[2021-02-13] MEDS: COLACE PO SCH (20:26)
[2021-02-13] MEDS: ELIQUIS PO SCH (20:26)
[2021-02-13] MEDS: CALCIUM 500 + VIT D 5 MCG (200 IU) TABLET PO SCH (20:27)
[2021-02-13] MEDS: BRIMONIDINE TARTRATE 0.2% OPTH SOL EACHEYE SCH (20:46)
[2021-02-13] MEDS: TRAVATAN Z EACHEYE SCH (20:47)
[2021-02-13] MEDS ORDERED: DORZOLAMIDE EACHEYE SCH (21:00)
[2021-02-13] MEDS: SENNA PO SCH (21:09)
[2021-02-14 02:26] LABS: BASOPHILS # (AUTO) 0.1 K/uL (0-0.2); EOSINOPHILS # (AUTO) 0.2 K/ul (0.0-0.7); EOSINOPHILS % (AUTO) 2.1 % (0.0-7.0); HEMATOCRIT 40.3 % (42.0-52.0); HEMOGLOBIN 13.4 g/dl (14.0-18.0); IMMATURE GRANULOCYTE # (AUTO) 0.1 (0.0-1.0); IMMATURE GRANULOCYTE % (AUTO) 0.6 % (0.0-5.0); LYMPHOCYTES # (AUTO) 1.6 K/uL (0.60-3.4); LYMPHOCYTES % (AUTO) 15.6 (10.0-50.0); MEAN CORPUSCULAR HEMOGLOBIN 31.5 pg (27.0-31.0); MEAN CORPUSCULAR HGB CONC 33.3 (31.8-35.4); MEAN CORPUSCULAR VOLUME 94.8 fl (80.0-94.0); MONOCYTES % (AUTO) 9.2 (0-10); NEUTROPHILS # (AUTO) 7.4 K/ul (2.0-6.9); NEUTROPHILS % (AUTO) 71.5 % (42.2-75.2); PLATELET COUNT 130 10^3/uL (140-440); RED BLOOD COUNT 4.25 10^6/ul (4.70-6.10); WHITE BLOOD COUNT 10.28 K/ul (4.2-10.2)
[2021-02-14 02:37] LABS: ALANINE AMINOTRANSFERASE 32.8 U/L (0-50); ALBUMIN 3.89 g/dL (3.5-5.0); ALKALINE PHOSPHATASE 50.9 U/L (56-119); ASPARTATE AMINO TRANSFERASE 45.6 U/L (17-59); BILIRUBIN,TOTAL 1.33 mg/dL (0.2-1.3); BLOOD UREA NITROGEN 28.1 mg/dL (9-20); CALCIUM 9.33 mg/dL (8.4-10.2); CARBON DIOXIDE 25.6 mmol/L (22-30.0); CHLORIDE 107.9 mmol/L (98-107); CREATININE 1.1 mg/dL (0.60-1.10); GLUCOSE 103.7 mg/dL (74-106); POTASSIUM 4.04 mmol/L (3.5-5.1); SODIUM 139.4 mmol/L (134.5-145); TOTAL PROTEIN 6.1 g/dL (6.3-8.2)
[2021-02-14 02:49] LABS: TROPONIN I 0.018 ng/ml (0.0000-0.120)
[2021-02-14] MEDS: BRIMONIDINE TARTRATE 0.2% OPTH SOL EACHEYE SCH ×2 (09:00→20:42)
[2021-02-14] MEDS ORDERED: COZAAR PO SCH (09:00)
[2021-02-14] MEDS ORDERED: MULTIVITAMIN TABLET PO SCH (09:00)
[2021-02-14] MEDS ORDERED: FLOMAX PO SCH (09:00)
[2021-02-14] MEDS ORDERED: LIPITOR PO SCH ×2 (09:00)
--- NOTE | 2021-02-14 09:21 | PCM.PROG ---
Attending Provider: ATTENDING PROVIDER: Dr. MILKA SILVA This patient is seen with Cici Millard, Nurse Practitioner. DATE OF SERVICE: 02/14/21 SUBJECTIVE: This 89 year old /WHITE M was hospitalized 02/13/21. The patient is resting comfortably in bed. He has had no syncopal episodes through the night or this morning. Heart rate in 50s while sleeping and asymptomatic. CT of the brain and carotid scan scheduled for this morning. REVIEW OF SYSTEMS: CONSTITUTIONAL: Weakness. No night sweats. No fatigue, malaise, lethargy. No fever or chills. HEENT: Eyes: No visual changes. No eye pain. No eye discharge. ENT: No runny nose. No epistaxis. No sinus pain. No odynophagia. No congestion. RESPIRATORY: No cough, no congestion. No hemoptysis. No shortness of breath. CARDIOVASCULAR: Palpitations. No angina symptoms. No CHF symptoms. No atypical chest pain for CAD. No orthopnea. GASTROINTESTINAL: No abdominal pain. No nausea or vomiting. No diarrhea or constipation. No hematemesis. No hematochezia. GENITOURINARY: No urgency. No frequency. No dysuria. No hematuria. No obstructive symptoms. No discharge. No pain. No significant abnormal bleeding. MUSCULOSKELETAL: No musculoskeletal pain; no joint swelling. NEUROLOGICAL: Awake, alert, oriented to time, place and person. No headache. No neck pain. No syncope. No seizures. No dizziness. PSYCHIATRIC: Not anxious. No depression. No suicidal thoughts. No homicidal thoughts. SKIN: No rash. No lesions. No wounds. ENDOCRINE: No unexplained weight loss. No weight gain. HEMATOLOGIC/LYMPHATIC: No anemia. No purpura. No petechiae. No prolonged or excessive bleeding. No palpable lymph nodes. PHYSICAL EXAMINATION: GENERAL: The patient is awake, alert and oriented, lying/sitting in bed in no distress. VITAL SIGNS: Temperature 97.8 F, Pulse 54, Respiratory Rate 16, BP 180/83, Pulse Ox 98% HEENT: Head normocephalic, atraumatic. Eyes: Extraocular muscles are intact. Pupils are equal, round and reactive to light and accommodation. Ears: No lesions. Nose appeared normal. Throat: No exudate or erythema. NECK: Supple. No JVD, no carotid bruit. No lymphadenopathy or thyromegaly. LUNGS: Diminished breath sounds. Clear to auscultation. Percussion note normal. Chest symmetrical. HEART: Irregular heart rate. S1, S2, no S3. No murmurs. No cyanosis or clubbing. No ascites. Pulses: Dorsalis pedis and posterior tibial pulses +1 to +2 both sides. ABDOMEN: Soft. Non-tender. Bowel sounds active. No CVA tenderness. No mass felt. EXTREMITIES: No edema. Full range of motion of all extremities, equal. NEUROLOGIC: No focal deficit. Cranial nerves II through XII are grossly intact. No headache. No double vision. SKIN: Not dry. Intact. Turgor-normal. LYMPHATIC: No palpable lymph nodes/no lymphedema. MUSCULOSKELETAL: Normal joints with no swelling. Muscle tone is normal. LAB REVIEW: 02/14/21 02:20 02/14/21 02:20 02/14/21 02:20: WBC 10.28 H, RBC 4.25 L, Hgb 13.4 L, Hct 40.3 L D, MCV 94.8 H, MCH 31.5 H, MCHC 33.3, RDW Coeff of Gene 14.0, Plt Count 130 L, Immature Gran % (Auto) 0.6, Neut % (Auto) 71.5, Lymph % (Auto) 15.6, Briscoe % (Auto) 9.2, Eos % (Auto) 2.1, Baso % (Auto) 1.0, Neut # (Auto) 7.4 H, Lymph # (Auto) 1.6, Briscoe # (Auto) 1.0, Eos # (Auto) 0.2, Baso # (Auto) 0.1, Immature Gran # (Auto) 0.1 02/14/21 02:20: Sodium 139.4, Potassium 4.04, Chloride 107.9 H, Carbon Dioxide 25.6, Anion Gap 9.94, BUN 28.1 H, Creatinine 1.10, Estimated GFR (MDRD) 63.00, BUN/Creatinine Ratio 25.54, Glucose 103.7, Calcium 9.33, Total Bilirubin 1.33 H, AST 45.6, ALT 32.8, Alkaline Phosphatase 50.9 L, Troponin I 0.018, Total Protein 6.10 L, Albumin 3.89, Globulin 2.21, Albumin/Globulin Ratio 1.76 02/13/21 18:31: Sodium 142.0, Potassium 4.11, Chloride 104.9, Carbon Dioxide 25.8, Anion Gap 15.41, BUN 29.0 H, Creatinine 1.14 H, Estimated GFR (MDRD) 60.00, BUN/Creatinine Ratio 25.43, Glucose 140.8 H, Calcium 9.60, Total B ilirubin 1.98 H, AST 47.9, ALT 38.3, Alkaline Phosphatase 58.2, Troponin I 0.014, Total Protein 7.64, Albumin 4.93, Globulin 2.71, Albumin/Globulin Ratio 1.81, TSH 2.810 02/13/21 18:31: WBC 10.67 H, RBC 4.85, Hgb 15.3, Hct 46.6, MCV 96.1 H, MCH 31.5 H, MCHC 32.8, RDW Coeff of Gene 14.0, Plt Count 149, Immature Gran % (Auto) 0.7, Neut % (Auto) 85.7 H, Lymph % (Auto) 9.0 L, Briscoe % (Auto) 3.6, Eos % (Auto) 0.4, Baso % (Auto) 0.6, Neut # (Auto) 9.2 H, Lymph # (Auto) 1.0, Briscoe # (Auto) 0.4, Eos # (Auto) 0.0, Baso # (Auto) 0.1, Immature Gran # (Auto) 0.1 02/13/21 18:31: Free T4 1.08 02/13/21 18:15: Urine Color Yellow, Urine Clarity Clear, Urine pH 6.5, Ur Specific Kamrar 1.015, Urine Protein Negative, Urine Glucose (UA) Negative, Urine Ketones Negative, Urine Blood 1+ H, Urine Nitrite Negative, Urine Bilirubin Negative, Urine Urobilinogen 0.2, Ur Leukocyte Esterase Negative, Urine Microscopic RBC 5-10, Urine Microscopic WBC 0-2, Ur Squamous Epith Cells Not present 02/13/21 14:59: Sodium 138.6, Potassium 4.84, Chloride 105.8, Carbon Dioxide 27.5, Anion Gap 10.14, BUN 29.6 H, Creatinine 1.13 H, Estimated GFR (MDRD) 61.00, BUN/Creatinine Ratio 26.19, Glucose 116.6 H, Calcium 9.40, Magnesium 2.31 H, Total Bilirubin 1.76 H, AST 44.7, ALT 33.3, Alkaline Phosphatase 48.2 L, Total Creatine Kinase 55.8, Troponin I < 0.012, NT-Pro-B Natriuret Pep 2970.000 H, Total Protein 6.56, Albumin 4.33, Globulin 2.23, Albumin/Globulin Ratio 1.94, TSH 3.260 02/13/21 14:59: WBC 10.77 H, RBC 4.45 L, Hgb 13.8 L, Hct 42.8, MCV 96.2 H, MCH 31.0, MCHC 32.2, RDW Coeff of Gene 13.9, Plt Count 133 L, Immature Gran % (Auto) 0.6, Neut % (Auto) 85.4 H, Lymph % (Auto) 7.2 L, Briscoe % (Auto) 4.9, Eos % (Auto) 1.2, Baso % (Auto) 0.7, Neut # (Auto) 9.2 H, Lymph # (Auto) 0.8, Briscoe # (Auto) 0.5, Eos # (Auto) 0.1, Baso # (Auto) 0.1, Immature Gran # (Auto) 0.1 ASSESSMENT: Please see below. 1. Syncope. 2. Symptomatic tamiko arrhythmia. 3. Atrial fibrillation. 4. Generalized weakness. 5. Aortic valve replacement. PLAN: 1. CT scan of the brain and ct of brain and carotid scan this a.m. 2. Continue with holter in place. Plan and coordination of the patient's care discussed in the presence of Inventory Auditor and nurse. CONDITION: Stable SCRIBED BY: SILVIA PEREZ Dealer Sales Rep scribed while in presence of service performed by Dr. Silva/Cici Millard APRN on 02/14/21 ([id number])
[2021-02-14] MEDS: CALCIUM 500 + VIT D 5 MCG (200 IU) TABLET PO SCH ×2 (12:06→20:35)
[2021-02-14] MEDS: SENNA PO SCH ×2 (12:06→20:35)
[2021-02-14] MEDS: COLACE PO SCH ×2 (12:06→20:35)
[2021-02-14] MEDS: ELIQUIS PO SCH ×2 (12:07→20:35)
--- NOTE | 2021-02-14 12:40 | CT ---
EXAM: CT Head with and without contrast. HISTORY: Syncope. COMPARISON: 06/08/2016. TECHNIQUE: Multiple axial images of the brain were obtained from the skull base through the vertex p rior to and following intravenous administration of 75 mL Omnipaque 350, low osmolar. Multiplanar re formats were provided. FINDINGS: There is no intracranial hemorrhage or extraaxial collection. The august-white differentiat ion is maintained without evidence for acute large vascular territory infarction. Mild periventricul ar white matter low attenuation seen in both cerebral hemispheres. Focal low density in the left swathi lamus again noted. The cortical sulci and basal cisterns are well visualized. Cortical sulcal enlar gement and ventricular enlargement noted. No areas of abnormal enhancement are identified. There is no hydrocephalus, mass effect, or midline shift. Mild ethmoid sinus mucosal thickening noted. Smal l polypoid foci in the inferior left maxillary sinus. Otherwise, the paranasal sinuses and mastoid a ir cells are clear. The calvarium is intact. IMPRESSION: 1. No acute intracranial abnormality. 2. Chronic small vessel ischemic changes and atrophy. 3. 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 All CT scans are performed using dose optimization techniques as appropriate to the performed exam an d include at least one of the following: Automated exposure control, adjustment of the mA and/or kV according t o size, and the use of iterative reconstruction technique.
--- NOTE | 2021-02-14 13:00 | US ---
EXAM: Ultrasound bilateral carotid duplex HISTORY: Syncope with headaches COMPARISON: None TECHNIQUE: Sonographic and color Doppler evaluation of the carotids were performed. FINDINGS: The right carotid is patent in appearance with scattered moderate to severe atherosclerotic plaque vi sualized. The right ICA peak systolic velocity measures 69 cm/sec which is within normal limits. The ICA / CCA peak systolic velocity ratio is 1.1 and ICA end-diastolic velocity is 27 cm/sec. The left carotid is patent in appearance with scattered moderate atherosclerotic plaque visualized. The left ICA peak systolic velocity measures 66 cm/sec which is is normal. The left ICA / CCA peak systolic velocity ratio is 1.1 and ICA end-diastolic velocity is 23 cm/sec. Vertebral arteries demonstrate antegrade flow bilaterally. Color Doppler wave spectral evaluation is present. IMPRESSION: Bilateral moderate to severe calcific atherosclerotic disease by ultrasound, but no hemodynamically significant stenosis is noted by ultrasound or color Doppler.
--- NOTE | 2021-02-14 14:17 | HOLTER ---
PATIENT INFORMATION AND COMMENTS Attending Physician: DR. MILKA SILVA Indications: SYNCOPE, BRADYCARDIA __ Patient Medications: APIXABAN, ATORVASTATIN, ATROPINE, BRIMONIDINE, DOCUSATE, LOSARTAN, NITRO, SENNOSIDES, SERTRALINE, TAMSULOSIN, TRAVOPROST __ Pre-procedure Summary: Protocol: Standard Heart Rate Started: 02/13/20212034 Minimum: 37 BPM Weight: 173 LBS Ended: 02/14/2021 1203 Maximum: 166 BPM Height: 70" Duration: 15 HRS 27 MIN Average: 62 BPM _ INTERPRETATIONS/OBSERVATIONS: 1. BASIC RHYTHM: ATRIAL FIBRILLATION, RATE 35 BPM TO 100 BPM, AVERAGE 60 BPM 2. INFREQUENT PVC'S 3. PAUSES GREATER THAN 2.5 SECONDS, 22 PAUSES IN 24 HOURS--LONGEST PAUSE 5.[address] NO [address]- T WAVE CHANGES MTDD
--- NOTE | 2021-02-14 15:48 | DS ---
DATE OF SERVICE: 02/14/21 FINAL DIAGNOSIS: 1. SYNCOPAL EPISODE 2. SICK SINUS SYNDROME PAUSES, LONGEST PAUSE 5.5 SECONDS 3. TRANSCATHETER AORTIC VALVE REPLACEMENT 02/02 AT [place] 4. HISTORY OF AORTIC VALVE REPLACEMENT 1999, [place] VALVE 5. CHRONIC ATRIAL FIBRILLATION FOR SEVERAL YEARS ON ELIQUIS 6. HYPERTENSION 7. DYSLIPIDEMIA 8. MELANOMA LEFT SHOULDER DONE BY DR. VENTURA 9. LEFT SHOULDER SURGERY 2012 10. BPH DISCHARGE INSTRUCTIONS: Transfer. MEDICATIONS AT DISCHARGE: Lipitor 10 mg p.o. daily Losartan 25 mg p.o. daily Eliquis 2.5 twice a day Zoloft 25 mg p.o. daily Flomax 0.4 p.o. daily Metoprolol 25 - 1/2 tablet discontinued EKG atrial fibrillation with right axis deviation, right bundle branch block. Chest x-ray no CHF. CBC hemoglobin 13, hematocrit 40, WBC 10,000, normal differential, creatinine 1.1, BUN 28, potassium 4, TSH normal. Pro-BNP 2970, troponin negative. HOSPITAL COURSE: 89-year-old white male hospitalized with history of having syncopal episode. The patient had four syncopal episodes lasting from 1 minute to 5 minutes. One was witnessed in the office yesterday. He was being seen for the same reason. The patient was hospitalized. Holter monitor was applied along with telemetry. Approximately midnight the patient was noted to have 5.5 second pause. Also he had a few three second pauses, 22 pauses were recorded then 2.5 second pauses in 16 hours of holter monitoring. The patient's Metoprolol has been taken off which was 12.5 mg a day. The patient typically blacks out, doesn't remember what happened, wakes up within a couple of minutes, one time episode lasted almost 5 minutes. According to the , he swated a lot at that time. The patient has no symptoms of CHF. On physical exam, is practically unremarkable except for Grade 1 to 2/6 soft systolic murmur. Echocardiogram was done last month showed normal functioning aortic valve, calcific mitral valve annulus was noted, left atrial cavity was noted to be enlarged 5.6 cm. Hypokinetic septal wall was noted. Normal ejection fraction. LVH was moderate. The patient has been up and about. The is usually with him. They have agreed to be transferred to a tertiary center for possibility of permanent pacemaker placement. The patient has history of having septicemia following weeks of transcatheter aortic valve replacement and was treated medically successfully in [place] in 2016. ADDENDUM: The patient was seen at [facility] two days ago with syncopal episode. Workup was negative. He was sent home. He also ended up spending a few hours at [facility] Emergency Room. There were no other abnormalities were noted on his rhythm. TIME SPENT: More than 60 minutes. ELISABETHD
--- NOTE | 2021-02-14 15:50 | PN ---
Billing 02/13/21 ADMISSION DAY LEVEL 5 02/14/21 FINAL DAY D IN DISCHARGE MTDD
[2021-02-14] MEDS: ZOLOFT PO SCH (20:35)
[2021-02-14] MEDS: TRAVATAN Z EACHEYE SCH (20:42)
[2021-02-14 21:20] VITALS: BP 146/79; TEMP 97.7
--- NOTE | 2021-02-16 09:45 | PN ---
DATE OF SERVICE: 02/14/2021 SUBJECTIVE: 89 year old white male hospitalized with syncopal episode through the emergency room in the emergency room was trying to transfer this patient. The patient had no pauses at that time recorded. [facility] refused to take the patient. He has an established diagnosis like new and few pauses recorded caused syncopal episode. Eventually the patient was admitted that is where a 5.5 second pause was noted. [facility] was unable to take the patient, they had no beds. [facility] was called and they also had no beds. Beds are all occupied by COVID patients. Other opinions was transferring the patient to [facility] the patient was not interested. Decided to stay at [facility] until beds open up at one of the [facility]. His condition is stable. TIME SPENT: More than 30 minutes. Plan and coordination of the patient's care discussed in the presence of nurse. TARUN
--- NOTE | 2021-02-16 11:03 | HP ---
DATE OF SERVICE: 02/13/21 REASON FOR HOSPITALIZATION/HISTORY OF PRESENT ILLNESS: 89-year-old white male just had syncopal episode while sitting in the chair. He slumped over less than a minute. Yesterday at home, he passed out and found in the chair slumped over for 2-3 minutes with sweating. He was taken to [facility] ER, workup negative. PAST MEDICAL HISTORY: Hypertension Dyslipidemia BPH Atrial fibrillation PAST SURGICAL HISTORY: Aortic valve times two replaced, [facility] 2000 TVAR [place] 2016 Left shoulder REVIEW OF SYSTEMS: CONSTITUTIONAL: No fever, no fatigue. HEENT: No sinus drainage, no sore throat. RESPIRATORY: No cough, no congestion. CARDIOVASCULAR: No atypical chest pain for coronary artery disease. No angina, CHF symptoms, palpitations or shortness of breath. GASTROINTESTINAL: No melena or abdominal pain. No GERD. GENITOURINARY: No hematuria, no prostatism, no polyuria. PACKAGING ENGINEER: Positive for blackout. No dizziness, no headache, no double vision. MUSCULOSKELETAL: No osteoarthritis pain, no joint swelling. ENDOCRINE: No weight loss, no weight gain. SKIN: Not dry, no rash. PSYCHIATRIC: Not anxious, no depression, no suicidal thoughts, no homicidal thoughts. SOCIAL HISTORY: . No children. Smoking: One pack per day times 30+ years, quit 1977. Alcohl use - yes, quit. FAMILY HISTORY: Father ; mother . One brother. No sisters. MEDICATIONS: Lipitor 10 mg one daily Cozaar 25 mg one daily Lopressor 25 mg 1/2 b.i.d. Eliquis 2.5 mg one b.i.d. Zoloft 25 mg one daily Flomax 0.4 mg one daily Senna two caps b.i.d. Calcium with Vitamin D daily Alphagan P one drop b.i.d. Cosopt one GTT b.i.d Travata one GTT h.s. Centrum Silver one daily ALLERGIES: PENICILLIN PHYSICAL EXAMINATION: V/S: Pulse 65, BP 110/50, temperature 97.9, 02 sat 98%. BMI 24.3, height 5'10", weight 169.4. GENERAL APPEARANCE: Oriented times three. HEENT: Normal. NECK: No JVP, no bruits. RESPIRATORY: Lungs are clear. CARDIOVASCULAR: S1, S2, no S3. Grade II/ systolic ejection murmur. No cyanosis, clubbing. No ascites. GI/ABDOMEN: No tenderness. Bowel sounds are active. EXTREMITIES: No edema, pulses +1, equal. PACKAGING ENGINEER: Deep tendon reflexes, sensory, motor and gait all normal. RECTAL/PROSTATE: 08/05 (2.8). Colonoscopy - patient refused. ASSESSMENT: 1. Covid-19 vaccinated (08/04). 2. Syncope x2 in the past 24 hours likely tamiko arrhythmias. 3. Atrial fibrillation on Eliquis. 4. 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 5. Status post aortic vavle replacement with [facility] 1999. 6. Hypertension. 7. Dyslipidemia. 8. BPH. 9. Left shoulder surgery 2012. 10. 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 PLAN: 1. Admit with routine telemetry. 2. T4, TSH. 3. 1000 cc D5 1/2 NS/12 hourly. 4. Lipitor 10 mg p.o. daily. 5. Losartan 25 mg p.o. daily. 6. Eliquis 2.5 mg p.o. b.i.d. 7. Zoloft 25 mg p.o. daily. 8. Flonase 0.[address] daily. 9. CT scan of head with contrast. TIME SPENT: More than 70 minutes. MTDD
== END 2021-02-15 03:55 | disposition short-term general hospital (02) | DRG 312 ==
LOC: ED 13:23 → MEDSURG A 16:51
PROVIDERS: ADMIT Internal Medicine; ATTEND Internal Medicine
DX: E78.5 Hyperlipidemia, unspecified; I48.91 Unspecified atrial fibrillation; R53.1 Weakness; R06.02 Shortness of breath; I10 Essential (primary) hypertension; R55 Syncope and collapse; R42 Dizziness and giddiness; I49.9 Cardiac arrhythmia, unspecified; I50.23 Acute on chronic systolic (congestive) heart failure; R11.2 Nausea with vomiting, unspecified; N28.9 Disorder of kidney and ureter, unspecified; E86.0 Dehydration